=== PATIENT | female | born 1965 | race Caucasian/White ===

== ENCOUNTER 2021-03-31 15:43 | Outpatient (REF) | payer MEDICAID, SELFPAY ==
--- NOTE | ~2021-03-31 | MM_ITS ---
EXAMINATION: MM SCREENING DIGITAL BREAST TOMOSYNTHESIS, BILATERAL CLINICAL INFORMATION: Screening. Asymptomatic. The lifetime risk of breast cancer based on the Tyrer-Cuzick Model is 18%. COMPARISON: Mammography: 01/20/2019, 12/11/2017, 11/01/2016 TECHNIQUE: Digital breast tomosynthesis is performed in both the craniocaudal and mediolateral oblique views along with computer-aided detection (CAD). Synthesized 2D images are generated from the tomosynthesis. Additional views are obtained: Bilateral CC, bilateral MLO. FINDINGS: The breasts are almost entirely fatty (ACR BI-RADS breast composition Category a). There are no significant masses, abnormal calcifications, or other abnormalities. Background stromal markings are stable. The axillary and skin contours are unremarkable. No significant changes. MM/MM tomosynthesis screening BI IMPRESSION: No mammographic evidence of malignancy. ASSESSMENT: BI-RADS 1: Negative RECOMMENDATION: Routine annual mammography screening. This patient's information was entered into a reminder system with a target due date for their next mammogram.
== END 2021-03-31 15:44 | disposition home or self-care (01) ==
LOC: HO.MAMMO 15:43
PROVIDERS: Visit Provider Family Medicine
DX: Z12.31 Encounter for screening mammogram for malignant neoplasm of breast (principal)
CPT/HCPCS: 77063; 77067

== ENCOUNTER → 2021-05-05 10:39 | Outpatient (BNVA) | payer MEDICAID, SELFPAY | PROVIDERS: PCP Family Medicine; Referring Provider Family Medicine; Visit Provider Surgery | DX: E66.01 Morbid (severe) obesity due to excess calories (principal); Z68.44 Body mass index [BMI] 60.0-69.9, adult; Z86.010 Personal history of colon polyps | CPT/HCPCS: 99202 ==

== ENCOUNTER 2021-06-03 06:37 | Day surgery (SDC) | payer MEDICAID, SELFPAY ==
[2021-05-27 14:37] VITALS: BMI 59.1
--- NOTE | 2021-06-02 08:28 | P.CONAN_ITS ---
Documented by User: Janis Alvaradoney 06/06/21 08:10 HPI - Anesthesia Eval Consult details Narrative: 55yo F for Colonoscopy, Poss Polypectomy PMFSH Active Problems Active Problems: All Active Problems (Updated 05/05/21 @ 11:12 by Cisco Kaur MD) Hypertension (Acute) Diabetes mellitus (Acute) Morbid obesity with BMI of 60.0-69.9, adult (Acute) Morbid obesity with BMI of 50.0-59.9, adult (Acute) History of adenomatous polyp of colon (Acute) Past Medical History Medical History Diabetes mellitus History of adenomatous polyp of colon Hypertension Morbid obesity with BMI of 50.0-59.9, adult Morbid obesity with BMI of 60.0-69.9, adult Social History Social History Patient Tobacco Use Status: Never used Tobacco Meds Allergies Allergy/AdvReac Type Severity Reaction Status Date / Time No Known Allergies Allergy Verified 05/05/21 10:55 [No Known Allergies*] Home Medications Medication Instructions Recorded Confirmed Last Taken Type alcohol swabs (Alcohol Prep Pads) pad TOPICAL 05/05/21 Unknown History aspirin 81 mg tablet,delayed 81 mg PO DAILY 05/05/21 Unknown History release baclofen 10 mg tablet 10 mg PO DAILY 05/05/21 Unknown History blood sugar diagnostic (FreeStyle #10 ea 05/05/21 Unknown History Lite Strips) cetirizine 10 mg capsule (Zyrtec) 10 mg PO DAILY PRN 05/05/21 Unknown History cholecalciferol (vitamin D3) 50 50 mcg PO DAILY 05/05/21 Unknown History mcg (2,000 unit) capsule dextrose 4 gram-D3 400 unit tab PO 05/05/21 Unknown History chewable tablet fluticasone propionate 50 1 spray INTRANASAL DAILY 05/05/21 Unknown History mcg/actuation nasal spray,suspension (Flonase Allergy Relief) hydrochlorothiazide 25 mg tablet 25 mg PO DAILY 05/05/21 Unknown History hydroxyzine pamoate 50 mg capsule 50 mg PO BEDTIME 05/05/21 Unknown History (Vistaril) lancets 28 gauge (FreeStyle #100 ea 05/05/21 Unknown History Lancets) lidocaine 5 % topical patch 1 patch TOPICAL DAILY 05/05/21 Unknown History lisinopril 40 mg tablet 40 mg PO DAILY 05/05/21 Unknown History metformin 850 mg tablet 850 mg PO BID 05/05/21 Unknown History multivitamin with iron 1 tab PO DAILY 05/05/21 Unknown History naloxone 4 mg/actuation nasal 4 mg INTRANASAL Q2M PRN 05/05/21 Unknown History spray (Narcan) naproxen 500 mg tablet 500 mg PO BID 05/05/21 Unknown History omega-3 fatty acids 1,000 mg 1,000 mg PO DAILY 05/05/21 Unknown History capsule (Fish Oil Concentrate) oxycodone-acetaminophen 2.5 mg-325 1 tab PO Q6H PRN 05/05/21 Unknown History mg tablet (Percocet) pioglitazone 15 mg tablet (Actos) 15 mg PO DAILY 05/05/21 Unknown History pravastatin 80 mg tablet 80 mg PO BEDTIME 05/05/21 Unknown History propranolol 120 mg capsule,24 120 mg PO DAILY 05/05/21 Unknown History hr,extended release (Inderal LA) quetiapine 100 mg tablet (Seroquel) 100 mg PO BEDTIME 05/05/21 Unknown History sertraline 100 mg tablet (Zoloft) 100 mg PO DAILY 05/05/21 Unknown History sumatriptan succinate 25 mg tablet 25 mg PO Q2-4H PRN 05/05/21 Unknown History (Imitrex) topiramate 25 mg tablet (Topamax) 25 mg PO DAILY 05/05/21 Unknown History varicella-zoster glycoE [id number] IM 05/05/21 Unknown History adj(PF) 50 mcg/0.5 mL IM susp, kit (Shingrix (PF)) Exam Exam Date and Time: June 02, 2021 0828 Height,Weight and Vital Signs: Height 5 ft 6 in Weight 166.015 kg Assessment and Plan Assessment Anesthesia Assessment: Chart Reviewed Documented by User: Kamille Brock MD 06/03/21 07:54 [facility] Past Medical History Medical History Diabetes mellitus History of adenomatous polyp of colon Hypertension Morbid obesity with BMI of 50.0-59.9, adult Morbid obesity with BMI of 60.0-69.9, adult Social History Social History Patient Tobacco Use Status: Never used Tobacco Meds Allergies Allergy/AdvReac Type Severity Reaction Status Date / Time No Known Allergies Allergy Verified 05/05/21 10:55 [No Known Allergies*] Home Medications Medication Instructions Recorded Confirmed Last Taken Type alcohol swabs (Alcohol Prep Pads) pad TOPICAL 05/05/21 Unknown History aspirin 81 mg tablet,delayed 81 mg PO DAILY 05/05/21 Unknown History release baclofen 10 mg tablet 10 mg PO DAILY 05/05/21 Unknown History blood sugar diagnostic (FreeStyle #10 ea 05/05/21 Unknown History Lite Strips) cetirizine 10 mg capsule (Zyrtec) 10 mg PO DAILY PRN 05/05/21 Unknown History cholecalciferol (vitamin D3) 50 50 mcg PO DAILY 05/05/21 Unknown History mcg (2,000 unit) capsule dextrose 4 gram-D3 400 unit tab PO 05/05/21 Unknown History chewable tablet fluticasone propionate 50 1 spray INTRANASAL DAILY 05/05/21 Unknown History mcg/actuation nasal spray,suspension (Flonase Allergy Relief) hydrochlorothiazide 25 mg tablet 25 mg PO DAILY 05/05/21 Unknown History hydroxyzine pamoate 50 mg capsule 50 mg PO BEDTIME 05/05/21 Unknown History (Vistaril) lancets 28 gauge (FreeStyle #100 ea 05/05/21 Unknown History Lancets) lidocaine 5 % topical patch 1 patch TOPICAL DAILY 05/05/21 Unknown History lisinopril 40 mg tablet 40 mg PO DAILY 05/05/21 Unknown History metformin 850 mg tablet 850 mg PO BID 05/05/21 Unknown History multivitamin with iron 1 tab PO DAILY 05/05/21 Unknown History naloxone 4 mg/actuation nasal 4 mg INTRANASAL Q2M PRN 05/05/21 Unknown History spray (Narcan) naproxen 500 mg tablet 500 mg PO BID 05/05/21 Unknown History omega-3 fatty acids 1,000 mg 1,000 mg PO DAILY 05/05/21 Unknown History capsule (Fish Oil Concentrate) oxycodone-acetaminophen 2.5 mg-325 1 tab PO Q6H PRN 05/05/21 Unknown History mg tablet (Percocet) pioglitazone 15 mg tablet (Actos) 15 mg PO DAILY 05/05/21 Unknown History pravastatin 80 mg tablet 80 mg PO BEDTIME 05/05/21 Unknown History propranolol 120 mg capsule,24 120 mg PO DAILY 05/05/21 Unknown History hr,extended release (Inderal LA) quetiapine 100 mg tablet (Seroquel) 100 mg PO BEDTIME 05/05/21 Unknown History sertraline 100 mg tablet (Zoloft) 100 mg PO DAILY 05/05/21 Unknown History sumatriptan succinate 25 mg tablet 25 mg PO Q2-4H PRN 05/05/21 Unknown History (Imitrex) topiramate 25 mg tablet (Topamax) 25 mg PO DAILY 05/05/21 Unknown History varicella-zoster glycoE [id number] IM 05/05/21 Unknown History adj(PF) 50 mcg/0.5 mL IM susp, kit (Shingrix (PF))
[2021-06-03 06:52] LABS: Glucose, Whole Blood 180 mg/dL (60-115)
[2021-06-03 07:02] VITALS: BP 123/69; PULSE 94; RESP 18; TEMP 36.7; O2SAT 97
[2021-06-03] MEDS: Lactated Ringers 1,000 ML 100 ML IVCONT (07:21)
--- NOTE | 2021-06-03 07:24 | MHC.SHP ---
Pre-Procedural Eval Section A Date of Service: 06/03/21 Section B Chief Complaint: hx of colonic polyps Allergies: Allergies Allergy/AdvReac Type Severity Reaction Status Date / Time No Known Allergies Allergy Verified 05/05/21 10:55 [No Known Allergies*] Plan I have reviewed the history and physical and performed a pertinent physical examination on my patient. No changes have occurred unless specified.
--- NOTE | 2021-06-03 08:27 | HO.ANESPROP2 ---
[facility] Active Problems Active Problems: All Active Problems (Updated 06/02/21 @ 08:30 by Janis Moon) Hypertension (Acute) Diabetes mellitus (Acute) Morbid obesity with BMI of 60.0-69.9, adult (Acute) Morbid obesity with BMI of 50.0-59.9, adult (Acute) History of adenomatous polyp of colon (Acute) Past Medical History Medical History Diabetes mellitus History of adenomatous polyp of colon Hypertension Morbid obesity with BMI of 50.0-59.9, adult Morbid obesity with BMI of 60.0-69.9, adult Surgical History History of Problems with Anesthesia: No Social History Social History Patient Tobacco Use Status: Never used Tobacco Use of substances other than those prescribed or required for medical reasons: No Have you been hit, kicked, punched, or otherwise hurt by someone within the past year? If so, by whom?: No Are you DNR?: No Advance Directives: No Advance Directives Information Provided: Yes Meds Allergies Allergy/AdvReac Type Severity Reaction Status Date / Time No Known Allergies Allergy Verified 05/05/21 10:55 [No Known Allergies*] Active Medications: Current Medications Generic Name Dose Route Start Last Admin Trade Name Tamra PRN Reason Stop Dose Admin Lactated Ringer's 1,000 mls @ 100 mls/hr 06/03/21 06:00 06/03/21 07:21 Lr IVCONT 100 mls/hr .Q10H JEAN PIERRE Administration Home Medications Medication Instructions Recorded Confirmed Last Taken Type alcohol swabs (Alcohol Prep Pads) pad TOPICAL 05/05/21 Unknown History aspirin 81 mg tablet,delayed 81 mg PO DAILY 05/05/21 Unknown History release baclofen 10 mg tablet 10 mg PO DAILY 05/05/21 Unknown History blood sugar diagnostic (FreeStyle #10 ea 05/05/21 Unknown History Lite Strips) cetirizine 10 mg capsule (Zyrtec) 10 mg PO DAILY PRN 05/05/21 Unknown History cholecalciferol (vitamin D3) 50 50 mcg PO DAILY 05/05/21 Unknown History mcg (2,000 unit) capsule dextrose 4 gram-D3 400 unit tab PO 05/05/21 Unknown History chewable tablet fluticasone propionate 50 1 spray INTRANASAL DAILY 05/05/21 Unknown History mcg/actuation nasal spray,suspension (Flonase Allergy Relief) hydrochlorothiazide 25 mg tablet 25 mg PO DAILY 05/05/21 Unknown History hydroxyzine pamoate 50 mg capsule 50 mg PO BEDTIME 05/05/21 Unknown History (Vistaril) lancets 28 gauge (FreeStyle #100 ea 05/05/21 Unknown History Lancets) lidocaine 5 % topical patch 1 patch TOPICAL DAILY 05/05/21 Unknown History lisinopril 40 mg tablet 40 mg PO DAILY 05/05/21 Unknown History metformin 850 mg tablet 850 mg PO BID 05/05/21 Unknown History multivitamin with iron 1 tab PO DAILY 05/05/21 Unknown History naloxone 4 mg/actuation nasal 4 mg INTRANASAL Q2M PRN 05/05/21 Unknown History spray (Narcan) naproxen 500 mg tablet 500 mg PO BID 05/05/21 Unknown History omega-3 fatty acids 1,000 mg 1,000 mg PO DAILY 05/05/21 Unknown History capsule (Fish Oil Concentrate) oxycodone-acetaminophen 2.5 mg-325 1 tab PO Q6H PRN 05/05/21 Unknown History mg tablet (Percocet) pioglitazone 15 mg tablet (Actos) 15 mg PO DAILY 05/05/21 Unknown History pravastatin 80 mg tablet 80 mg PO BEDTIME 05/05/21 Unknown History propranolol 120 mg capsule,24 120 mg PO DAILY 05/05/21 Unknown History hr,extended release (Inderal LA) quetiapine 100 mg tablet (Seroquel) 100 mg PO BEDTIME 05/05/21 Unknown History sertraline 100 mg tablet (Zoloft) 100 mg PO DAILY 05/05/21 Unknown History sumatriptan succinate 25 mg tablet 25 mg PO Q2-4H PRN 05/05/21 Unknown History (Imitrex) topiramate 25 mg tablet (Topamax) 25 mg PO DAILY 05/05/21 Unknown History varicella-zoster glycoE [id number] IM 05/05/21 Unknown History adj(PF) 50 mcg/0.5 mL IM susp, kit (Shingrix (PF)) Exam Exam Date and Time: June 03, [id number] Height,Weight and Vital Signs: Height 5 ft 6 in Weight 166.015 kg Last Vital Signs Temp 98.1 F 06/03/21 07:02 Pulse 94 06/03/21 07:02 Resp 18 06/03/21 07:02 BP 123/69 06/03/21 07:02 Pulse Ox 97 06/03/21 07:02 Pertinent Lab Results Pertinent Lab Results: Laboratory Tests 06/03/21 06:48 POC Glucose 180 H Airway Mallampati Class: III TM Dist: >3cm Neck ROM: Limited Heart: RRR Lungs: CTA Assessment and Plan Assessment Anesthesia Assessment: Anesthesia Plan Discussed and Chart Reviewed Final Anesthetic Review History of Problems with Anesthesia: No NPO: Yes ASA Class: III Final Preanesthetic Review: Meds/Allgs Chart Reviewed, Consent Obtained/Reviewed and Anes Risks/Benef Reviewed Patient Risk: Intermediate Procedure Risk: Low Anesthetic Plan Anesthetic Plan: MAC: Disposition: Standard PACU
--- NOTE | 2021-06-03 09:16 | P.OP_ITS ---
Operative Note Operative Note Date of Service: 06/03/21 Narrative: Preop diagnosis: History of colon adenoma Postop diagnosis: Diverticulosis of the sigmoid, mild, otherwise, possibly findings Procedure: Colonoscopy Surgeon: Cisco Kaur MD The patient is a 55 year female who had undergone a colonoscopy in [address] Burger and was noted to have adenomatous polyps. She was instructed to have a follow-up colonoscopy in 5 years. She understood the technique of the proced ure. She was aware of the risks, benefits, and alternatives. She was brought to the operating room and placed in left lateral decubitus position under monitored anesthesia care. A full digital rectal was done. There were no palpable anal lesions. The tip of the Olympus colonoscope wase of her gently introduced through the anal orifice advanced with insufflation all the way to the cecum. The cecum was intubated. The cecum was identified by visualization of the ileocecal valve as well as the appendiceal orifice. The cecal mucosa was unremarkable. The scope was gradually withdrawn with careful examination of the entire colonic mucosa being done with scope withdrawal. The patient had good bowel prep so it was unlikely that any lesion may have been missed. There was note of mild diverticulosis of the sigmoid. The rectum was reached. There were no lesions seen. The anal canal and anal shelf where unremarkable and the scope was then withdrawn completely The patient tolerated the procedure well. There were no complications noted. Her her next colonoscopy may be the next 10 years.
[2021-06-03 09:19] VITALS: BP 112/52; PULSE 78; RESP 18; TEMP 36.9; O2SAT 99
--- NOTE | 2021-06-03 09:19 | PM.OP ---
Brief Operative Note Date of Service: 06/03/21 Pre-op diagnosis: History of polyps Post-op diagnosis: other (Mild diverticulosis) Procedure: Colonoscopy Surgeon: Cisco Kaur MD Anesthesia: MAC Was an Echocardiography Tech used for this Procedure?: No Estimated blood loss (mL): 0 Pathology: none sent Condition: stable Disposition: PACU
[2021-06-03 09:34] VITALS: BP 122/44; PULSE 77; RESP 18; TEMP 37; O2SAT 98
== END 2021-06-03 10:11 | disposition home or self-care (01) ==
PROVIDERS: PCP Family Medicine; Visit Provider Surgery
PROC: 0DBE8ZZ Excision of Large Intestine, Via Natural or Artificial Opening Endoscopic (ICD-10-PCS; CPT 45378; principal; 2021-06-03 08:40)
DX: Z12.11 Encounter for screening for malignant neoplasm of colon (principal); Z86.010 Personal history of colon polyps; K57.30 Diverticulosis of large intestine without perforation or abscess without bleeding; I10 Essential (primary) hypertension; E11.9 Type 2 diabetes mellitus without complications; E66.01 Morbid (severe) obesity due to excess calories; Z79.84 Long term (current) use of oral hypoglycemic drugs; Z79.82 Long term (current) use of aspirin; Z79.899 Other long term (current) drug therapy
CPT/HCPCS: 45378; 82947

== ENCOUNTER → 2021-06-15 09:18 | Outpatient (BNVA) | payer MEDICAID, SELFPAY | PROVIDERS: PCP Family Medicine; Referring Provider Family Medicine; Visit Provider Surgery ==

== ENCOUNTER 2022-04-03 14:37 | Outpatient (REF) | payer MEDICAID, SELFPAY ==
--- NOTE | ~2022-04-03 | MM_ITS ---
EXAMINATION: MM SCREENING DIGITAL BREAST TOMOSYNTHESIS, BILATERAL CLINICAL INFORMATION: Screening. Asymptomatic. The lifetime risk of breast cancer based on the Tyrer-Cuzick Model is 15%. COMPARISON: Mammography: March 31, 2021 and studies dating back to September 03, 2014 TECHNIQUE: Digital breast tomosynthesis is performed in both the craniocaudal and mediolateral oblique views along with computer-aided detection (CAD). Synthesized 2D images are generated from the tomosynthesis. FINDINGS: The breasts are almost entirely fatty (ACR BI-RADS breast composition Category a). There are no significant masses, abnormal calcifications, or other abnormalities. MM/MM tomosynthesis screening BI IMPRESSION: There are no significant changes from prior study. ASSESSMENT: BI-RADS 1: Negative RECOMMENDATION: Routine annual mammography screening. This patient's information was entered into a reminder system with a target due date for their next mammogram.
== END 2022-04-03 14:38 | disposition home or self-care (01) ==
LOC: HO.MAMMO 14:37
PROVIDERS: PCP Family Medicine; Visit Provider Family Medicine
DX: Z12.31 Encounter for screening mammogram for malignant neoplasm of breast (principal)
CPT/HCPCS: 77063; 77067

== ENCOUNTER 2023-04-26 10:21 | Outpatient (REF) | payer MEDICAID, SELFPAY ==
--- NOTE | ~2023-04-26 | MM_ITS ---
EXAMINATION: MM SCREENING DIGITAL BREAST TOMOSYNTHESIS, BILATERAL CLINICAL INFORMATION: Screening. Asymptomatic. The lifetime risk of breast cancer based on the Tyrer-Cuzick Model is 14.6.%. COMPARISON: Mammography: This study is compared with the prior mammograms dating back to 2018. TECHNIQUE: Digital breast tomosynthesis is performed in both the craniocaudal and mediolateral oblique views along with computer-aided detection (CAD). Synthesized 2D images are generated from the tomosynthesis. FINDINGS: The breasts are almost entirely fatty (ACR BI-RADS breast composition Category a). There are no significant masses, abnormal calcifications, or other abnormalities. MM/MM tomosynthesis screening BI IMPRESSION: No mammographic evidence of malignancy. ASSESSMENT: BI-RADS BI-RADS 1 - Negative RECOMMENDATION: Routine annual mammography screening. 1 year F/U This patient's information was entered into a reminder system with a target due date for their next mammogram.
== END 2023-04-26 10:22 | disposition home or self-care (01) ==
LOC: HO.MAMMO 10:21
PROVIDERS: PCP Family Medicine; Visit Provider Family Medicine
DX: Z12.31 Encounter for screening mammogram for malignant neoplasm of breast (principal)
CPT/HCPCS: 77063; 77067

== ENCOUNTER → 2023-04-26 10:45 | Outpatient (BNV) | payer MEDICAID, SELFPAY | PROVIDERS: PCP Family Medicine; Visit Provider Radiology Diagnostic Radiology | DX: Z12.31 Encounter for screening mammogram for malignant neoplasm of breast (principal) | CPT/HCPCS: 77063; 77067 ==

== ENCOUNTER 2023-05-09 11:33 | Outpatient (REF) | payer MEDICAID, SELFPAY ==
[2023-05-09 13:23] LABS: MANUAL DIFF FLAG NO
[2023-05-09 13:57] LABS: Basophils Percent Auto 0.6 % (0-2); Eosinophils Absolute Auto 0.1 X10*3/uL (0.0-0.4); Eosinophils Percent Auto 2.6 % (0-4); Hematocrit 38.5 % (37.0-47.0); Hemoglobin 12.2 g/dl (12.0-16.0); Imm Gran Abs Auto 0.01 X10*3/uL (0.00-0.03); Imm Gran Pct Auto 0.2 % (0.0-0.4); Lymphocytes Absolute Auto 1.3 X10*3/uL (1.2-4.9); Mean Corpuscular HGB Conc 31.7 g/dl (31.0-35.0); Mean Corpuscular Volume 91.7 fL (80.0-98.0); Mean Platelet Volume 11.7 fL (9.4-12.3); Monocytes Absolute Auto 0.5 X10*3/uL (0.1-1.2); Monocytes Percent Auto 10.1 % (2-11); Neutrophils Absolute Auto 3.4 x10*3/uL (2.0-8.3); Neutrophils Percent Auto 62.5 % (45-73); Platelet Count 177 X10*3/uL (160-400); Red Cell Distribution Width 13.2 % (11.0-16.0); White Blood Count 5.4 X10*3/uL (4.8-10.8)
[2023-05-09 14:03] LABS: Estimated Average Glucose 114 mg/dL; Hemoglobin A1c % 5.6 %
[2023-05-09 14:32] LABS: HBsAGNum1 0.32 S/CO (0.00-0.99); HIV AB/AG Nonreactive (Nonreactive); HIV Num 1 0.06 S/CO (0.00-0.99); Hepatitis B Surface Antigen Negative (Negative); ~Hepatitis B Surface Antibody NONREACTIVE (Nonreactive)
[2023-05-09 14:34] LABS: ~HepC Num1 0.08 S/CO (0.00-0.79); ~Hepatitis C Antibody Nonreactive (Nonreactive)
[2023-05-09 14:40] LABS: Anion Gap 14 (12-20); Blood Urea Nitrogen 21 mg/dL (9-16); Calcium 10.7 mg/dL (8.4-10.2); Carbon Dioxide 26 mmol/L (22-29); Chloride 106 mmol/L (96-108); Cholesterol 131 mg/dL; Estimated Glomerular Filt Rate 43; Glucose Random 118 mg/dL (60-115); HDL Cholesterol 58 mg/dL; LDL Cholesterol Calculated 59 mg/dl; Potassium 4.9 mmol/L (3.3-5.1); Sodium 141 mmol/L (135-145); Triglycerides 73 mg/dL
[2023-05-09 14:48] LABS: Syphilis Screen Nonreactive (Nonreactive)
[2023-05-09 14:49] LABS: Free T4 (Free Thyroxine) 1.25 ng/dL (0.71-1.85); Thyroid Stimulating Hormone 1.08 uIU/mL (0.32-4.0); Vitamin D 25-OH Total 47.1 ng/mL (>30)
[2023-05-09 15:36] LABS: CT PCR NOT DETECTED (Not Detect.); NG PCR NOT DETECTED (Not Detect.)
== END 2023-05-09 11:34 | disposition home or self-care (01) ==
LOC: HO.HHCL 11:33
PROVIDERS: Visit Provider Family Medicine
DX: Z11.4 Encounter for screening for human immunodeficiency virus [HIV] (principal); E11.42 Type 2 diabetes mellitus with diabetic polyneuropathy
CPT/HCPCS: 0353U; 80048; 80061; 82043; 82306; 83036; 84439; 84443; 85025; 86706; 86780; 86803; 87340; 87389

== ENCOUNTER 2023-05-28 11:14 | Outpatient (REF) | payer MEDICAID, SELFPAY ==
[2023-05-28 14:59] LABS: Alanine Aminotransferase 13 U/L (0-31); Albumin Level 3.9 g/dL (3.5-5.0); Alkaline Phosphatase 93 U/L (39-117); Amylase 48 U/L (28-100); Anion Gap 17 (12-20); Aspartate Amino Transferase 15 U/L (5-31); Bilirubin Direct 0.5 mg/dL (0.0-0.5); Bilirubin Total 1.1 mg/dL (0.0-1.0); Blood Urea Nitrogen 17 mg/dL (9-16); Calcium 10.4 mg/dL (8.4-10.2); Carbon Dioxide 23 mmol/L (22-29); Chloride 105 mmol/L (96-108); Estimated Glomerular Filt Rate 50; Glucose Random 105 mg/dL (60-115); Lipase 10 U/L (8-78); Potassium 4.2 mmol/L (3.3-5.1); Sodium 141 mmol/L (135-145); Total Protein 7.3 g/dL (6.5-8.0)
[2023-05-29 19:04] LABS: Calcium (PTHI) 9.6 mg/dL (8.6-10.4); PTHI 62 pg/mL (16-77)
== END 2023-05-28 11:15 | disposition home or self-care (01) ==
LOC: HO.HHCL 11:14
PROVIDERS: Visit Provider Family Medicine
DX: R79.89 Other specified abnormal findings of blood chemistry (principal); R10.11 Right upper quadrant pain; E83.52 Hypercalcemia
CPT/HCPCS: 36415; 80048; 80076; 82150; 83690; 83970

== ENCOUNTER 2024-03-31 09:43 | Outpatient (REF) | payer MEDICAID, SELFPAY ==
[2024-03-31 12:14] LABS: Alanine Aminotransferase 13 U/L (0-31); Alkaline Phosphatase 99 U/L (39-117); Anion Gap 13 (12-20); Aspartate Amino Transferase 13 U/L (5-31); Bilirubin Direct 0.3 mg/dL (0.0-0.5); Bilirubin Total 0.9 mg/dL (0.0-1.0); Blood Urea Nitrogen 29 mg/dL (9-16); Calcium 10.1 mg/dL (8.4-10.2); Carbon Dioxide 28 mmol/L (22-29); Chloride 106 mmol/L (96-108); Cholesterol 125 mg/dL (<200); Estimated Glomerular Filt Rate 35; Glucose Random 114 mg/dL (60-115); HDL Cholesterol 51 mg/dL (>40); LDL Cholesterol Calculated 58 mg/dL (<100); Potassium 4.6 mmol/L (3.3-5.1); Sodium 142 mmol/L (135-145); Total Protein 7.1 g/dL (6.5-8.0); Triglycerides 82 mg/dL (<150)
[2024-03-31 12:19] LABS: Hematocrit 35.5 % (37.0-47.0); Hemoglobin 11.6 g/dl (12.0-16.0); Mean Corpuscular HGB Conc 32.7 g/dl (31.0-35.0); Mean Corpuscular Hemoglobin 29.4 pg (27.0-33.0); Mean Corpuscular Volume 89.9 fL (80.0-98.0); Mean Platelet Volume 11.3 fL (9.4-12.3); Platelet Count 231 X10*3/uL (160-400); Red Blood Count 3.95 X10*6/uL (4.20-5.50); White Blood Count 6.9 X10*3/uL (4.8-10.8)
[2024-03-31 12:19] LABS: Creatinine Urine 210.45 mg/dL; Microalbum/Creatinine Ratio Ur 5.2 ug/mg cr (<30)
[2024-03-31 12:22] LABS: Estimated Average Glucose 131 mg/dL; Hemoglobin A1c % 6.2 % (<6.0)
[2024-03-31 12:36] LABS: Free T4 (Free Thyroxine) 1.05 ng/dL (0.71-1.85); Thyroid Stimulating Hormone 1.76 uIU/mL (0.32-4.0); Vitamin D 25-OH Total 34.9 ng/mL (>30)
== END 2024-03-31 09:44 | disposition home or self-care (01) ==
LOC: HO.HHCL 09:43
PROVIDERS: Visit Provider Family Medicine
DX: Z00.00 Encounter for general adult medical examination without abnormal findings (principal); G89.29 Other chronic pain; M54.50 Low back pain, unspecified; F33.9 Major depressive disorder, recurrent, unspecified; E78.49 Other hyperlipidemia; I10 Essential (primary) hypertension; E11.42 Type 2 diabetes mellitus with diabetic polyneuropathy
CPT/HCPCS: 36415; 80048; 80061; 80076; 82043; 82306; 82570; 83036; 84439; 84443; 85027

== ENCOUNTER 2024-04-10 09:38 | Outpatient (REF) | payer MEDICAID, SELFPAY ==
[2024-04-10 12:14] LABS: Anion Gap 10 (12-20); Blood Urea Nitrogen 25 mg/dL (9-16); Calcium 9.9 mg/dL (8.4-10.2); Carbon Dioxide 30 mmol/L (22-29); Chloride 105 mmol/L (96-108); Estimated Glomerular Filt Rate 40; Glucose Random 118 mg/dL (60-115); Potassium 4.7 mmol/L (3.3-5.1); Sodium 140 mmol/L (135-145)
== END 2024-04-10 09:39 | disposition home or self-care (01) ==
LOC: HO.HHCL 09:38
PROVIDERS: Visit Provider Family Medicine
DX: E11.42 Type 2 diabetes mellitus with diabetic polyneuropathy (principal)
CPT/HCPCS: 36415; 80048

== ENCOUNTER 2024-05-08 09:57 | Outpatient (REF) | payer MEDICAID, SELFPAY | END 2024-05-08 09:58 | disposition home or self-care (01) | LOC: HO.MAMMO 09:57 | PROVIDERS: Visit Provider Family Medicine | DX: Z12.31 Encounter for screening mammogram for malignant neoplasm of breast (principal) | CPT/HCPCS: 77063; 77067 ==

== ENCOUNTER → 2024-05-08 10:30 | Outpatient (BNV) | payer MEDICAID, SELFPAY | PROVIDERS: Visit Provider Radiology Diagnostic Radiology | DX: Z12.31 Encounter for screening mammogram for malignant neoplasm of breast (principal) | CPT/HCPCS: 77063; 77067 ==

== ENCOUNTER 2024-05-23 16:02 | Outpatient (REF) | payer MEDICAID, SELFPAY ==
[2024-05-23 18:07] LABS: CT PCR NOT DETECTED (Not Detect.); NG PCR NOT DETECTED (Not Detect.)
[2024-05-27 12:33] LABS: HPV mRNA E6/E7 Not Detected (Not Detected)
== END 2024-05-23 16:03 | disposition home or self-care (01) ==
LOC: HO.HHCLNP 16:02
PROVIDERS: Visit Provider Family Medicine
DX: Z01.419 Encounter for gynecological examination (general) (routine) without abnormal findings (principal)
CPT/HCPCS: 36415; 87491; 87591; 87624; 88175

== ENCOUNTER 2024-07-22 09:09 | Outpatient (REF) | payer MEDICAID, SELFPAY ==
--- NOTE | 2024-07-22 09:14 | EMG_ITS ---
FINDINGS: Right median and ulnar motor and sensory studies were performed. Right radial, sensory study was performed and paraspinal muscles were tested with a needle. IMPRESSION: 1. Mild right median neuropathy across carpal tunnel. 2. 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 MD CYNDEE Puckett/OSMAR / [id number]
== END 2024-07-22 09:10 | disposition home or self-care (01) ==
LOC: HO.NEURO 09:09
PROVIDERS: PCP Family Medicine; Visit Provider Family Medicine
DX: R20.2 Paresthesia of skin (principal); M79.641 Pain in right hand
CPT/HCPCS: 95886; 95909

== ENCOUNTER 2024-07-30 14:33 | Outpatient (AMB) | payer MEDICAID, SELFPAY ==
[2024-07-30 14:53] VITALS: BP 126/61; PULSE 63; O2SAT 97; BMI 55.5
--- NOTE | 2024-07-30 14:53 | HO.NEPHOV ---
Vital Signs 07/30/24 14:53 Height 5 ft 6 in Weight 344 lb BMI 55.5 BP 126/61 Blood Pressure Location Rt brachial Position Sitting Pulse 63 Pulse Source Pulse Oximeter Pulse Oximetry (%) 97 Oxygen Delivery Method Room Air Intake Visit Reasons: CKD STG3A/ Conf Field Traffic Investigator Required: Yes Field Traffic Investigator Services: Field Traffic Investigator Present Field Traffic Investigator Name: Darryn Sinha [id number] Accompanied by: Self / Same As Patient Allergies No Known Allergies [No Known Allergies*] Allergy (Verified 07/30/24 14:55) Medication List - Last Reconciled 07/30/24 by Stephan Combs MD alcohol swabs (Alcohol Prep Pads) pad topical aspirin 81 mg PO DAILY baclofen 10 mg PO DAILY blood sugar diagnostic (FreeStyle Lite Strips) As directed cetirizine (Zyrtec) 10 mg PO DAILY PRN cholecalciferol (vitamin D3) 50 mcg PO DAILY dextrose-vitamin D3 4-400 gram-unit tabs PO dulaglutide (Trulicity) mg subcut QWEEK fluticasone propionate 50 mcg/actuation (Flonase Allergy Relief) 1 spray intranasal DAILY gabapentin 100 mg PO TID hydrochlorothiazide 25 mg PO DAILY hydroxyzine pamoate (Vistaril) 50 mg PO BEDTIME lancets (FreeStyle Lancets) As directed lidocaine 5% 1 patch topical DAILY lisinopril 40 mg PO DAILY metformin 850 mg PO DAILY multivitamin with iron 1 tab PO DAILY naloxone 4 mg/actuation (Narcan) 4 mg intranasal Q2M PRN omega-3 fatty acids (Fish Oil Concentrate) 1,000 mg PO DAILY oxycodone-acetaminophen 2.5-325 mg (Percocet) 1 tab PO Q6H PRN pravastatin 80 mg PO BEDTIME propranolol ER (Inderal LA) 120 mg PO DAILY quetiapine (Seroquel) 150 mg PO BEDTIME sertraline (Zoloft) 100 mg PO DAILY sumatriptan succinate (Imitrex) 25 mg PO Q2-4H PRN HPI Comments Details: Micheline is a pleasant 59-year-old woman with a history of hypertension obesity and diabetes mellitus referred for evaluation of CKD. Serum creatinine was 1.5. Overall blood pressure has been well controlled. Blood sugar has been under control as well. [facility] Medical History (Updated 07/30/24 @ 15:09 by Stephan Combs MD) Diverticulosis Hypertension Diabetes mellitus Morbid obesity with BMI of 60.0-69.9, adult Morbid obesity with BMI of 50.0-59.9, adult History of adenomatous polyp of colon Surgical History (Updated 07/30/24 @ 14:59 by Alicia Plata MA) History of colonoscopy (~2020) Family History (Updated 07/30/24 @ 15:01 by Alicia Plata MA) Mother Diabetes Social History (Updated 07/30/24 @ 14:59 by Alicia Plata MA) Alcohol intake: never Patient Tobacco Use Status: Never used Tobacco Review of Systems Const Denies fever(s) and Denies weight loss Card Denies chest pain Resp Denies cough and Denies hemoptysis GI Denies abdominal pain, Denies diarrhea and Denies nausea Musc Denies back pain Neuro Denies focal weakness Physical Exam Vital Signs: Last Vital Signs Pulse 63 07/30/24 14:53 BP 126/61 07/30/24 14:53 Pulse Ox 97 07/30/24 14:53 Oxygen Delivery Method Room Air 07/30/24 14:53 BMI result Body Mass Index 55.5 Const General: comfortable; No acute distress Orientation/consciousness: patient oriented x3 Eyes General: appearance normal, both eyes and all related structures Visual Wyatt: normal visual wyatt by confrontation Neck Neck: Yes supple and Yes no JVD Resp Effort & Inspection: normal respiratory effort and respiratory effort not decreased Auscultation: rhonchi Cardio Palpation: no palpable S3 and no palpable S4 Heart sounds: no rubs GI Inspection: Yes normal to inspection Palpation (GI): Soft to palpation Percussion: Yes normal to percussion Auscultation: normal bowel sounds General: Yes no CVA tenderness Back/Spine/Pelvis Back: no CVA tenderness Skin General skin exam: no petechiae and no purpura Neuro General: patient oriented x3 and no focal motor deficits Extrem General: No clubbing and No edema Results Reviewed Nephrology Results: Hgb 10.5 g/dl (12.0-16.0) L 08/05/24 WBC 5.5 X10*3/uL (4.8-10.8) 08/05/24 Plt Count 181 X10*3/uL (160-400) 08/05/24 Sodium 143 mmol/L (135-145) 08/05/24 Potassium 3.8 mmol/L (3.3-5.1) 08/05/24 Chloride 107 mmol/L (96-108) 08/05/24 Carbon Dioxide 28 mmol/L (22-29) 08/05/24 BUN 26 mg/dL (9-16) H 08/05/24 Creatinine 1.38 mg/dL (0.5-1.4) 08/05/24 Calcium 9.5 mg/dL (8.4-10.2) 08/05/24 PTH Intact 62 pg/mL (16-77) 05/28/23 Urine Protein Negative mg/dL (Neg-Trace) 08/05/24 Urine Creatinine 117.95 mg/dL 08/05/24 Assessment & Plan Assessment & Plan (1) Hypertension: Code(s): I10 - Essential (primary) hypertension Category: Medical (2) CKD (chronic kidney disease): Code(s): N18.9 - Chronic kidney disease, unspecified Category: Medical Plan 59-year-old woman with a history of longstanding hypertension diabetes mellitus and obesity with CKD. Serum creatinine was 1.5 mg/dL which has in fact improved to 1.3 mg/dL. She probably has underlying hypertensive diabetic kidney disease. Other possibilities including obstructive uropathy and underlying glomerular disease should be considered and we will rule them out. Goal is to slow the progression of renal disease Continue overt nephrotoxic agents including NSAIDs. Maintain blood pressure less than 130/80 Maintain A1c less than 7%. Agree with maximizing CHERYL inhibitors for renal protection. She will also benefit from SGLT2 inhibitors. Discussed importance of low-salt diet and weight loss. She returned to office once the baseline workup is completed Orders: Orders Complete Blood Count Auto Diff 08/05/24 I10 - Essential (primary) hypertension, N18.9 - Chronic kidney disease, unspecified Creatinine Urine 08/05/24 I10 - Essential (primary) hypertension, N18.9 - Chronic kidney disease, unspecified UA and rflx microscopic 08/05/24 I10 - Essential (primary) hypertension, N18.9 - Chronic kidney disease, unspecified Basic Metabolic Panel 08/05/24 I10 - Essential (primary) hypertension, N18.9 - Chronic kidney disease, unspecified Total Protein Urine Random 08/05/24 I10 - Essential (primary) hypertension, N18.9 - Chronic kidney disease, unspecified Coding Level of Care Code New Pt Level 4 (03894) Diagnoses Hypertension I10 CKD (chronic kidney disease) N18.9
== END 2024-07-30 15:16 | disposition home or self-care (01) ==
LOC: HO.HKAM 14:33
PROVIDERS: PCP Family Medicine; Referring Provider Family Medicine; Visit Provider Internal Medicine Hypertension Specialist
DX: I12.9 Hypertensive chronic kidney disease with stage 1 through stage 4 chronic kidney disease, or unspecified chronic kidney disease (principal); E11.22 Type 2 diabetes mellitus with diabetic chronic kidney disease; N18.9 Chronic kidney disease, unspecified
CPT/HCPCS: 99204

== ENCOUNTER → 2024-07-30 14:33 | Outpatient (BNVA) | payer MEDICAID, SELFPAY | PROVIDERS: PCP Family Medicine; Referring Provider Family Medicine; Visit Provider Internal Medicine Hypertension Specialist | DX: E11.22 Type 2 diabetes mellitus with diabetic chronic kidney disease (principal); I12.9 Hypertensive chronic kidney disease with stage 1 through stage 4 chronic kidney disease, or unspecified chronic kidney disease; N18.31 Chronic kidney disease, stage 3a | CPT/HCPCS: 99202 ==

== ENCOUNTER 2024-08-05 10:50 | Outpatient (REF) | payer MEDICAID, SELFPAY ==
[2024-08-05 11:38] LABS: Appearance Urine Clear; Color Urine Yellow; Glucose Urine UA Negative (Negative); Leukocyte Esterase Urine Moderate (2+) (Negative); Nitrite Urine Negative (Negative); PH 5.5 (5.0-9.0); UMIC TRIGGER UA YES; Urine Blood Negative (Negative); Urine Ketones Negative (Negative); Urine Protein Negative (Neg-Trace)
[2024-08-05 11:39] LABS: MANUAL DIFF FLAG NO
[2024-08-05 11:44] LABS: Bacteria Urine None Seen (None Seen); Hyaline Casts Urine 0-2 /LPF (0-2); RBC Urine 0-2 /HPF (0-2)
[2024-08-05 11:46] LABS: Basophils Percent Auto 0.7 % (0-2); Eosinophils Absolute Auto 0.2 X10*3/uL (0.0-0.4); Eosinophils Percent Auto 3.5 % (0-4); Hematocrit 32.8 % (37.0-47.0); Hemoglobin 10.5 g/dl (12.0-16.0); Imm Gran Abs Auto 0.02 X10*3/uL (0.00-0.03); Imm Gran Pct Auto 0.4 % (0.0-0.4); Lymphocytes Absolute Auto 1.5 X10*3/uL (1.2-4.9); Lymphocytes Percent Auto 27.5 % (20-40); Mean Corpuscular Hemoglobin 28.8 pg (27.0-33.0); Mean Corpuscular Volume 89.9 fL (80.0-98.0); Mean Platelet Volume 11.4 fL (9.4-12.3); Monocytes Absolute Auto 0.5 X10*3/uL (0.1-1.2); Monocytes Percent Auto 8.2 % (2-11); Neutrophils Absolute Auto 3.3 x10*3/uL (2.0-8.3); Neutrophils Percent Auto 59.7 % (45-73); Platelet Count 181 X10*3/uL (160-400); Red Blood Count 3.65 X10*6/uL (4.20-5.50); Red Cell Distribution Width 13.6 % (11.0-16.0); White Blood Count 5.5 X10*3/uL (4.8-10.8)
[2024-08-05 12:13] LABS: Creatinine Urine 117.95 mg/dL; Total Protein Urine Random < 7 mg/dL (<12)
[2024-08-05 12:16] LABS: Anion Gap 12 (12-20); Blood Urea Nitrogen 26 mg/dL (9-16); Calcium 9.5 mg/dL (8.4-10.2); Carbon Dioxide 28 mmol/L (22-29); Chloride 107 mmol/L (96-108); Estimated Glomerular Filt Rate 39; Glucose Random 120 mg/dL (60-115); Potassium 3.8 mmol/L (3.3-5.1); Sodium 143 mmol/L (135-145)
== END 2024-08-05 10:51 | disposition home or self-care (01) ==
LOC: HO.HHCL 10:50
PROVIDERS: Visit Provider Internal Medicine Hypertension Specialist
DX: I12.9 Hypertensive chronic kidney disease with stage 1 through stage 4 chronic kidney disease, or unspecified chronic kidney disease (principal); N18.9 Chronic kidney disease, unspecified
CPT/HCPCS: 36415; 80048; 81001; 82570; 84156; 85025

== ENCOUNTER 2024-09-17 14:47 | Outpatient (AMB) | payer MEDICAID, SELFPAY ==
[2024-09-17 14:48] VITALS: BP 126/70; PULSE 95; O2SAT 75
--- NOTE | 2024-09-17 14:48 | HO.NEPHOV_ITS ---
Vital Signs 09/17/24 14:48 Height 5 ft 6 in BP 126/70 Blood Pressure Location Lt radial Position Sitting Pulse 95 Pulse Source Pulse Oximeter Pulse Oximetry (%) 75 L Oxygen Delivery Method Room Air Intake Visit Reasons: follow up/ LVM Manager Home Healthcare Required: Yes Manager Home Healthcare Name: [id number] alisa Accompanied by: Self / Same As Patient Allergies No Known Allergies [No Known Allergies*] Allergy (Verified 09/17/24 14:50) Medication List - Last Reconciled 09/17/24 by Stephan Combs MD alcohol swabs (Alcohol Prep Pads) pad topical aspirin 81 mg PO DAILY baclofen 10 mg PO DAILY blood sugar diagnostic (FreeStyle Lite Strips) As directed cetirizine (Zyrtec) 10 mg PO DAILY PRN cholecalciferol (vitamin D3) 50 mcg PO DAILY dextrose-vitamin D3 4-400 gram-unit tabs PO dulaglutide (Trulicity) 3 mg subcut QWEEK dulaglutide (Trulicity) mg subcut QWEEK fluticasone propionate 50 mcg/actuation (Flonase Allergy Relief) 1 spray intranasal DAILY gabapentin 100 mg PO TID hydrochlorothiazide 25 mg PO DAILY hydroxyzine pamoate (Vistaril) 50 mg PO BEDTIME lancets (FreeStyle Lancets) As directed lidocaine 5% 1 patch topical DAILY lisinopril 40 mg PO DAILY metformin 850 mg PO DAILY multivitamin with iron 1 tab PO DAILY naloxone 4 mg/actuation (Narcan) 4 mg intranasal Q2M PRN omega-3 fatty acids (Fish Oil Concentrate) 1,000 mg PO DAILY oxycodone-acetaminophen 2.5-325 mg (Percocet) 1 tab PO Q6H PRN oxycodone-acetaminophen 5-325 mg 1 tab PO Q6H PRN pravastatin 80 mg PO BEDTIME propranolol ER (Inderal LA) 120 mg PO DAILY quetiapine 50 mg PO QPM quetiapine (Seroquel) 150 mg PO BEDTIME sertraline (Zoloft) 100 mg PO DAILY sumatriptan succinate (Imitrex) 25 mg PO Q2-4H PRN HPI Comments Details: Micheline is a pleasant 59-year-old woman with a history of hypertension obesity and diabetes mellitus referred for evaluation of CKD. Serum creatinine was 1.5. Overall blood pressure has been well controlled. Blood sugar has been under control as well. [facility] Medical History (Updated 07/30/24 @ 15:09 by Stephan Combs MD) Diverticulosis Hypertension Diabetes mellitus Morbid obesity with BMI of 60.0-69.9, adult Morbid obesity with BMI of 50.0-59.9, adult History of adenomatous polyp of colon Surgical History History of colonoscopy (~2020) Family History Mother Diabetes Social History Alcohol intake: never Patient Tobacco Use Status: Never used Tobacco Physical Exam Vital Signs: Last Vital Signs Pulse 95 09/17/24 14:48 BP 126/70 09/17/24 14:48 Pulse Ox 75 L 09/17/24 14:48 Oxygen Delivery Method Room Air 09/17/24 14:48 Const General: comfortable; No acute distress Orientation/consciousness: patient oriented x3 Eyes General: appearance normal, both eyes and all related structures Visual Wyatt: normal visual wyatt by confrontation Neck Neck: Yes supple and Yes no JVD Resp Effort & Inspection: normal respiratory effort and respiratory effort not decreased Auscultation: rhonchi Cardio Palpation: no palpable S3 and no palpable S4 Heart sounds: no rubs GI Inspection: Yes normal to inspection Palpation (GI): Soft to palpation Percussion: Yes normal to percussion Auscultation: normal bowel sounds General: Yes no CVA tenderness Back/Spine/Pelvis Back: no CVA tenderness Skin General skin exam: no petechiae and no purpura Neuro General: patient oriented x3 and no focal motor deficits Extrem General: No clubbing and No edema Results Reviewed Nephrology Results: Hgb 10.5 g/dl (12.0-16.0) L 08/05/24 WBC 5.5 X10*3/uL (4.8-10.8) 08/05/24 Plt Count 181 X10*3/uL (160-400) 08/05/24 Sodium 143 mmol/L (135-145) 08/05/24 Potassium 3.8 mmol/L (3.3-5.1) 08/05/24 Chloride 107 mmol/L (96-108) 08/05/24 Carbon Dioxide 28 mmol/L (22-29) 08/05/24 BUN 26 mg/dL (9-16) H 08/05/24 Creatinine 1.38 mg/dL (0.5-1.4) 08/05/24 Calcium 9.5 mg/dL (8.4-10.2) 08/05/24 PTH Intact 62 pg/mL (16-77) 05/28/23 Urine Protein Negative mg/dL (Neg-Trace) 08/05/24 Urine Creatinine 117.95 mg/dL 08/05/24 Assessment & Plan Assessment & Plan (1) Hypertension: Code(s): I10 - Essential (primary) hypertension Category: Medical (2) CKD (chronic kidney disease): Code(s): N18.9 - Chronic kidney disease, unspecified Category: Medical Plan 59-year-old woman with a history of longstanding hypertension diabetes mellitus and obesity with CKD. Serum creatinine was 1.5 mg/dL which has in fact improved to 1.3 mg/dL. She probably has underlying hypertensive diabetic kidney disease. Other possibilities including obstructive uropathy and underlying glomerular disease should be considered and we will rule them out. Goal is to slow the progression of renal disease Continue to avoid nephrotoxic agents including NSAIDs. Maintain blood pressure less than 130/80 Maintain A1c less than 7%. Agree with maximizing CHERYL inhibitors for renal protection. She will also benefit from SGLT2 inhibitors. Discussed importance of low-salt diet and weight loss. 24 hours urine for Cr Cl Orders: Orders Creatinine Clearance Urine 24U 2 Months I10 - Essential (primary) hypertension, N18.9 - Chronic kidney disease, unspecified Complete Blood Count no Diff 2 Months I10 - Essential (primary) hypertension, N18.9 - Chronic kidney disease, unspecified Basic Metabolic Panel 2 Months I10 - Essential (primary) hypertension, N18.9 - Chronic kidney disease, unspecified Creatinine, 24 Hr Group 2 Months I10 - Essential (primary) hypertension, N18.9 - Chronic kidney disease, unspecified Coding Level of Care Code Est Pt Level 4 (68245) Diagnoses Hypertension I10 CKD (chronic kidney disease) N18.9
== END 2024-09-17 15:07 | disposition home or self-care (01) ==
LOC: HO.HKAM 14:47
PROVIDERS: PCP Family Medicine; Visit Provider Internal Medicine Hypertension Specialist
DX: I12.9 Hypertensive chronic kidney disease with stage 1 through stage 4 chronic kidney disease, or unspecified chronic kidney disease (principal); E11.22 Type 2 diabetes mellitus with diabetic chronic kidney disease; N18.9 Chronic kidney disease, unspecified
CPT/HCPCS: 99214

== ENCOUNTER → 2024-09-17 14:47 | Outpatient (BNVA) | payer MEDICAID, SELFPAY | PROVIDERS: PCP Family Medicine; Visit Provider Internal Medicine Hypertension Specialist | DX: I12.9 Hypertensive chronic kidney disease with stage 1 through stage 4 chronic kidney disease, or unspecified chronic kidney disease (principal); E11.22 Type 2 diabetes mellitus with diabetic chronic kidney disease; N18.9 Chronic kidney disease, unspecified | CPT/HCPCS: 99212 ==

== ENCOUNTER 2024-10-06 16:55 | Outpatient (REF) | payer MEDICAID, SELFPAY ==
[2024-10-07 17:13] LABS: Creatinine, mg/dL 60.73; Creatinine, mg/dL 61.32
[2024-10-08 07:17] LABS: Creatinine, 24Hr Urine 1.5 G/Day (1.0-2.0); Total Volume 24 Hour Urine 2500 mL
[2024-10-08 07:18] LABS: Creatinine, 24Hr Urine 1.5 G/Day (1.0-2.0); Total Volume 24 Hour Urine 2500 mL
[2024-10-08 07:20] LABS: Creatinine (CrCl) 1.28 mg/dL (0.5-1.4); Creatinine Clearance 83.1 mL/min (85-125)
== END 2024-10-06 16:56 | disposition home or self-care (01) ==
LOC: HO.HHCLNP 16:55
PROVIDERS: Visit Provider Internal Medicine Hypertension Specialist
DX: I12.9 Hypertensive chronic kidney disease with stage 1 through stage 4 chronic kidney disease, or unspecified chronic kidney disease (principal); N18.9 Chronic kidney disease, unspecified
CPT/HCPCS: 82570; 82575

== ENCOUNTER 2024-10-07 13:22 | Outpatient (REF) | payer MEDICAID, SELFPAY ==
[2024-10-07 16:12] LABS: Hemoglobin 11.4 g/dl (12.0-16.0); Mean Corpuscular HGB Conc 32.6 g/dl (31.0-35.0); Mean Corpuscular Hemoglobin 29.2 pg (27.0-33.0); Mean Corpuscular Volume 89.5 fL (80.0-98.0); Platelet Count 247 X10*3/uL (160-400); Red Blood Count 3.91 X10*6/uL (4.20-5.50); Red Cell Distribution Width 13.6 % (11.0-16.0)
[2024-10-07 16:29] LABS: Anion Gap 13 (12-20); Blood Urea Nitrogen 21 mg/dL (9-16); Calcium 9.8 mg/dL (8.4-10.2); Carbon Dioxide 28 mmol/L (22-29); Chloride 105 mmol/L (96-108); Estimated Glomerular Filt Rate 43; Glucose Random 78 mg/dL (60-115); Potassium 4.2 mmol/L (3.3-5.1); Sodium 142 mmol/L (135-145)
== END 2024-10-07 13:23 | disposition home or self-care (01) ==
LOC: HO.HHCL 13:22
PROVIDERS: Visit Provider Internal Medicine Hypertension Specialist
DX: I12.9 Hypertensive chronic kidney disease with stage 1 through stage 4 chronic kidney disease, or unspecified chronic kidney disease (principal); N18.9 Chronic kidney disease, unspecified
CPT/HCPCS: 36415; 80048; 85027

== ENCOUNTER 2024-10-15 13:16 | Outpatient (AMB) | payer MEDICAID, SELFPAY ==
[2024-10-15 13:22] VITALS: BP 100/72; PULSE 72; O2SAT 97
--- NOTE | 2024-10-15 13:22 | HO.NEPHOV_ITS ---
Vital Signs 10/15/24 13:22 Height 5 ft 6 in BP 100/72 Blood Pressure Location Lt radial Position Sitting Pulse 72 Pulse Source Pulse Oximeter Pulse Oximetry (%) 97 Oxygen Delivery Method Room Air Intake Visit Reasons: follow up/ Conf Oil Transport Driver Required: Yes Oil Transport Driver Name: Clyde [id number] Accompanied by: Self / Same As Patient Allergies No Known Allergies [No Known Allergies*] Allergy (Verified 10/15/24 13:24) Medication List - Last Reconciled 10/15/24 by Stephan Combs MD alcohol swabs (Alcohol Prep Pads) pad topical aspirin 81 mg PO DAILY baclofen 10 mg PO DAILY blood sugar diagnostic (FreeStyle Lite Strips) As directed cetirizine (Zyrtec) 10 mg PO DAILY PRN cholecalciferol (vitamin D3) 50 mcg PO DAILY dextrose-vitamin D3 4-400 gram-unit tabs PO dulaglutide (Trulicity) 3 mg subcut QWEEK dulaglutide (Trulicity) mg subcut QWEEK fluticasone propionate 50 mcg/actuation (Flonase Allergy Relief) 1 spray intranasal DAILY gabapentin 100 mg PO TID hydrochlorothiazide 25 mg PO DAILY hydroxyzine pamoate (Vistaril) 50 mg PO BEDTIME lancets (FreeStyle Lancets) As directed lidocaine 5% 1 patch topical DAILY lisinopril 40 mg PO DAILY metformin 850 mg PO DAILY multivitamin with iron 1 tab PO DAILY naloxone 4 mg/actuation (Narcan) 4 mg intranasal Q2M PRN omega-3 fatty acids (Fish Oil Concentrate) 1,000 mg PO DAILY oxycodone-acetaminophen 2.5-325 mg (Percocet) 1 tab PO Q6H PRN oxycodone-acetaminophen 5-325 mg 1 tab PO Q6H PRN pravastatin 80 mg PO BEDTIME propranolol ER (Inderal LA) 120 mg PO DAILY quetiapine 50 mg PO QPM quetiapine (Seroquel) 150 mg PO BEDTIME sertraline (Zoloft) 100 mg PO DAILY sumatriptan succinate (Imitrex) 25 mg PO Q2-4H PRN HPI Comments Details: Micheline is a pleasant 59-year-old woman with a history of hypertension obesity and diabetes mellitus referred for evaluation of CKD. Serum creatinine was 1.5. Overall blood pressure has been well controlled. Blood sugar has been under control as well. [facility] Medical History (Updated 07/30/24 @ 15:09 by Stephan Combs MD) Diverticulosis Hypertension Diabetes mellitus Morbid obesity with BMI of 60.0-69.9, adult Morbid obesity with BMI of 50.0-59.9, adult History of adenomatous polyp of colon Surgical History History of colonoscopy (~2020) Family History Mother Diabetes Social History Alcohol intake: never Patient Tobacco Use Status: Never used Tobacco Physical Exam Vital Signs: Last Vital Signs Pulse 72 10/15/24 13:22 BP 100/72 10/15/24 13:22 Pulse Ox 97 10/15/24 13:22 Oxygen Delivery Method Room Air 10/15/24 13:22 Results Reviewed Results Reviewed: Test Result Flag Reference Creatinine 1.28 0.5-1.4 mg/dL Creat Clear 83.1 L 85-125 mL/min Creatinine,24Hr 1.5 1.0-2.0 G/Day Creatinine,24U 61.32 24 Hr Volume 2500 mL Nephrology Results: Hgb 11.4 g/dl (12.0-16.0) L 10/07/24 WBC 7.0 X10*3/uL (4.8-10.8) 10/07/24 Plt Count 247 X10*3/uL (160-400) 10/07/24 Sodium 142 mmol/L (135-145) 10/07/24 Potassium 4.2 mmol/L (3.3-5.1) 10/07/24 Chloride 105 mmol/L (96-108) 10/07/24 Carbon Dioxide 28 mmol/L (22-29) 10/07/24 BUN 21 mg/dL (9-16) H 10/07/24 Creatinine 1.28 mg/dL (0.5-1.4) 10/07/24 Calcium 9.8 mg/dL (8.4-10.2) 10/07/24 Urine Protein Negative mg/dL (Neg-Trace) 10/08/24 Urine Creatinine 117.95 mg/dL 08/05/24 Assessment & Plan Assessment & Plan (1) Hypertension: Code(s): I10 - Essential (primary) hypertension Category: Medical (2) CKD (chronic kidney disease): Code(s): N18.9 - Chronic kidney disease, unspecified Category: Medical Plan 59-year-old woman with a history of longstanding hypertension diabetes mellitus and obesity with CKD. Serum creatinine was 1.5 mg/dL which has in fact improved to 1.3 mg/dL. She probably has underlying hypertensive diabetic kidney disease. Other possibilities including obstructive uropathy and underlying glomerular disease should be considered and we will rule them out. Goal is to slow the progression of renal disease Continue to avoid nephrotoxic agents including NSAIDs. Maintain blood pressure less than 130/80 Maintain A1c less than 7%. Agree with maximizing CHERYL inhibitors for renal protection. She will also benefit from SGLT2 inhibitors. Discussed importance of low-salt diet and weight loss. 24 hours urine showed a Cr Cl of 83 ml/mt ! BP is rather low Since she has no proteinuria, I will decrease LISINOPRIL form 40 mg down to 30 mg QD Orders: Orders Basic Metabolic Panel 3 Months N18.9 - Chronic kidney disease, unspecified Medications: Changed From lisinopril 40 mg PO DAILY To lisinopril 30 mg PO DAILY 90 tabs 1RF Coding Level of Care Code Est Pt Level 4 (45313) Diagnoses Hypertension I10 CKD (chronic kidney disease) N18.9
== END 2024-10-15 13:39 | disposition home or self-care (01) ==
LOC: HO.HKAM 13:16
PROVIDERS: PCP Family Medicine; Visit Provider Internal Medicine Hypertension Specialist
DX: I12.9 Hypertensive chronic kidney disease with stage 1 through stage 4 chronic kidney disease, or unspecified chronic kidney disease (principal); E11.22 Type 2 diabetes mellitus with diabetic chronic kidney disease; N18.9 Chronic kidney disease, unspecified
CPT/HCPCS: 99214

== ENCOUNTER → 2024-10-15 13:16 | Outpatient (BNVA) | payer MEDICAID, SELFPAY | PROVIDERS: PCP Family Medicine; Visit Provider Internal Medicine Hypertension Specialist | DX: I12.9 Hypertensive chronic kidney disease with stage 1 through stage 4 chronic kidney disease, or unspecified chronic kidney disease (principal); N18.9 Chronic kidney disease, unspecified | CPT/HCPCS: 99212 ==

== ENCOUNTER 2025-01-09 10:46 | Outpatient (REF) | payer MEDICAID, SELFPAY ==
[2025-01-09 13:51] LABS: Appearance Urine Clear; Color Urine Yellow; Glucose Urine UA Negative (Negative); Leukocyte Esterase Urine Large (3+) (Negative); Nitrite Urine Negative (Negative); PH 6.5 (5.0-9.0); Specific Gravity - Urine 1.015 (1.005-1.025); UMIC TRIGGER UA YES; Urine Blood Negative (Negative); Urine Ketones Negative (Negative); Urine Protein Negative (Neg-Trace)
[2025-01-09 13:57] LABS: Bacteria Urine 1+ (None Seen); Hyaline Casts Urine 0-2 /LPF (0-2); RBC Urine 0-2 /HPF (0-2); WBC Urine 21-50 /HPF (0-5)
[2025-01-09 14:05] LABS: Anion Gap 13 (12-20); Blood Urea Nitrogen 22 mg/dL (9-16); Calcium 9.6 mg/dL (8.4-10.2); Carbon Dioxide 27 mmol/L (22-29); Chloride 105 mmol/L (96-108); Estimated Glomerular Filt Rate 44; Glucose Random 122 mg/dL (60-115); Potassium 4.2 mmol/L (3.3-5.1); Sodium 141 mmol/L (135-145)
== END 2025-01-09 10:47 | disposition home or self-care (01) ==
LOC: HO.HHCL 10:46
PROVIDERS: Visit Provider Internal Medicine Hypertension Specialist
DX: N18.9 Chronic kidney disease, unspecified (principal)
CPT/HCPCS: 36415; 80048; 81001

== ENCOUNTER 2025-01-14 12:43 | Outpatient (AMB) | payer MEDICAID, SELFPAY ==
[2025-01-14 13:11] VITALS: BP 110/78; PULSE 69; O2SAT 97
--- NOTE | 2025-01-14 13:11 | HO.NEPHOV ---
Vital Signs 01/14/25 13:11 Height 5 ft 6 in BP 110/78 Blood Pressure Location Lt radial Position Sitting Pulse 69 Pulse Source Pulse Oximeter Pulse Oximetry (%) 97 Oxygen Delivery Method Room Air Intake Visit Reasons: 3 month fu/ Conf Office Lead Required: Yes Office Lead Name: Toy Alvarado [id number] Accompanied by: Self / Same As Patient Allergies No Known Allergies [No Known Allergies*] Allergy (Verified 01/14/25 13:12) Medication List - Last Reconciled 01/14/25 by Stephan Combs MD alcohol swabs (Alcohol Prep Pads) pad topical aspirin 81 mg PO DAILY baclofen 10 mg PO DAILY blood sugar diagnostic (FreeStyle Lite Strips) As directed cetirizine (Zyrtec) 10 mg PO DAILY PRN cholecalciferol (vitamin D3) 50 mcg PO DAILY dextrose-vitamin D3 4-400 gram-unit tabs PO dulaglutide (Trulicity) 3 mg subcut QWEEK dulaglutide (Trulicity) mg subcut QWEEK fluticasone propionate 50 mcg/actuation (Flonase Allergy Relief) 1 spray intranasal DAILY gabapentin 100 mg PO TID hydrochlorothiazide 25 mg PO DAILY hydroxyzine pamoate (Vistaril) 50 mg PO BEDTIME lancets (FreeStyle Lancets) As directed lidocaine 5% 1 patch topical DAILY lisinopril 30 mg PO DAILY metformin 850 mg PO DAILY multivitamin with iron 1 tab PO DAILY naloxone 4 mg/actuation (Narcan) 4 mg intranasal Q2M PRN omega-3 fatty acids (Fish Oil Concentrate) 1,000 mg PO DAILY oxycodone-acetaminophen 2.5-325 mg (Percocet) 1 tab PO Q6H PRN oxycodone-acetaminophen 5-325 mg 1 tab PO Q6H PRN pravastatin 80 mg PO BEDTIME propranolol ER (Inderal LA) 120 mg PO DAILY quetiapine 50 mg PO QPM quetiapine (Seroquel) 150 mg PO BEDTIME sertraline (Zoloft) 100 mg PO DAILY sumatriptan succinate (Imitrex) 25 mg PO Q2-4H PRN HPI Comments Details: Micheline is a pleasant 59-year-old woman with a history of hypertension obesity and diabetes mellitus referred for evaluation of CKD. Serum creatinine was 1.5. No new issues Overall blood pressure has been well controlled. Blood sugar has been under control as well. [facility] Medical History (Updated 07/30/24 @ 15:09 by Stephan Combs MD) Diverticulosis Hypertension Diabetes mellitus Morbid obesity with BMI of 60.0-69.9, adult Morbid obesity with BMI of 50.0-59.9, adult History of adenomatous polyp of colon Surgical History History of colonoscopy (~2020) Family History Mother Diabetes Social History Alcohol intake: never Patient Tobacco Use Status: Never used Tobacco Physical Exam Vital Signs: Last Vital Signs Pulse 69 01/14/25 13:11 BP 110/78 01/14/25 13:11 Pulse Ox 97 01/14/25 13:11 Oxygen Delivery Method Room Air 01/14/25 13:11 Comfortable Neck supple no JVD. Lungs entry equal no rales. Heart S1-S2 heard no gallop or rub. Abdomen soft nontender. Neuro alert awake oriented. No asterixis. Extremities no edema. Results Reviewed Nephrology Results: Hgb 11.4 g/dl (12.0-16.0) L 10/07/24 WBC 7.0 X10*3/uL (4.8-10.8) 10/07/24 Plt Count 247 X10*3/uL (160-400) 10/07/24 Sodium 141 mmol/L (135-145) 01/09/25 Potassium 4.2 mmol/L (3.3-5.1) 01/09/25 Chloride 105 mmol/L (96-108) 01/09/25 Carbon Dioxide 27 mmol/L (22-29) 01/09/25 BUN 22 mg/dL (9-16) H 01/09/25 Creatinine 1.25 mg/dL (0.5-1.4) 01/09/25 Calcium 9.6 mg/dL (8.4-10.2) 01/09/25 Urine Protein Negative mg/dL (Neg-Trace) 01/09/25 Urine Creatinine 117.95 mg/dL 08/05/24 Assessment & Plan Assessment & Plan (1) Hypertension: Code(s): I10 - Essential (primary) hypertension Category: Medical (2) CKD (chronic kidney disease): Code(s): N18.9 - Chronic kidney disease, unspecified Category: Medical Plan 59-year-old woman with a history of longstanding hypertension diabetes mellitus and obesity with CKD. Serum creatinine was 1.5 mg/dL which has in fact improved to 1.3 mg/dL. She probably has underlying hypertensive diabetic kidney disease. Other possibilities including obstructive uropathy and underlying glomerular disease should be considered and we will rule them out. Goal is to slow the progression of renal disease Continue to avoid nephrotoxic agents including NSAIDs. Maintain blood pressure less than 130/80 Maintain A1c less than 7%. Agree with maximizing CHERYL inhibitors for renal protection. She will also benefit from SGLT2 inhibitors. Discussed importance of low-salt diet and weight loss. 24 hours urine showed a Cr Cl of 83 ml/mt ! BP was low Since she has no proteinuria, I decreases LISINOPRIL from 40 mg down to 30 mg QD and she is doing well. Needs weight loss Increase physical activity No changes made today Coding Level of Care Code Est Pt Level 4 (44711) Diagnoses Hypertension I10 CKD (chronic kidney disease) N18.9
--- OUTSIDE RECORDS SUMMARY | 2025-01-14 15:03 | XMS_ITS | Encounter Summary ---
Author Organization [employer] Address 75 [facility] 7t [place] [address] Care Team Providers Care Legal Billing Analyst Name Role Phone Jeri Stewart DO Primary Care Provider + [phone] Reason for Visit * Reason Comments Routine Cleaning Dental Exam perio chart x-rays Encounter Details Date Type Department Care Team (Late st Contact Info) Description 12/16/2024 9:00 AM EST Office Visit [facility] ADULT DENTAL [address] [place] [address] Mario Alberto Adela [address] [place] [address] Tipped teeth (Primary Dx); Periodontal disease; Acute gingival inflammation; Dental plaque Social History Tobacco Use Types Packs/Day Years Used Date Smoking Tobacco: Never Passive Smoke Exposure: Never Smokeless Tobacco: Never Alcohol Use Standard Drinks/Week Comments Never 0 (1 standard drink = 0.6 oz pur e alcohol) Depression Answer Date Recorded Patient Health Questionnaire-9 Score 2 05/23/2024 Patient Health Questionnaire-9 Score 2 05/23/2024 Last PHQ-9: Questionnaire Data Not on file 0 05/23/2024 Housing Stability Answer Date Recorded What is your housing situation today? I have chari mann 05/23/[address] you li ve. Do you have problems with any of the following? None of the above 05/23/2024 Food Insecurity Answer Date Recorded Within the past 12 months, y ou worried that your food would run out before you got money to buy more: Never True 05/23/2024 Within the past 12 months,th e food you bought just didn't last and you didn't have enough money to get more: Never True Transportation Answer Date Recorded In the past 12 months, has l ack of transportation kept you from medical appts, meetings, work or from getting things needed for daily living? No 05/23/2024 Utilities Answer Date Recorded In the past 12 months, has t he electric, gas, oil or water company threatened to shut off services in your home? No 05/23/2024 Depression Answer Date Recorded Patient Health Questionnaire-2 Score 0 05/23/2024 Internet Access Answer Date Recorded Internet Access Q1 Yes 06/27/2024 Internet Access Q2 Not on file 06/27/2024 Comments Unknown Sex and Gender Information Value Date Recorded Sex Assigned at Female 08/28/2022 10:15 AM EDT Legal Sex Female 10:15 AM EDT Gender Identity Female 08/28/2022 10:15 AM EDT Sexual Orientation Straight 08/28/2022 10 :15 AM EDT documented as of this encounter Last Filed Vital Signs Vital Sign Reading Time Taken Comments Blood Pressure 132/76 12/16/2024 8:58 AM EST Pulse - - Temperature - - Respiratory Rate - - Oxygen Saturation - - Inhaled Oxygen Concentration - - Weight - - Height - - Body Mass Index - - documented in this encounter Progress Notes * Adela Llanes - 12/16/2024 9:00 AM EST Appoint at 9 am for x-rays, p. Exam, perio chart, prophy or gross debridement. Patient ID: Judi Lobato is a 59 y.o. female. Time Out: Timeout Date: 12/16/24, Timeout Time: 0900 (x-rays, perio chart, Gross scaling, P. exam) Location: [facility] Tooth: Maxilla and Mandible Procedure: Exam, X-rays, Prophylaxis, and Perio chart Verified the above with patient, sales and marketing assistant, and provider. Confirmed via patient's chart, intraorally and by radiographs. Animal Trainer Supervisor: not applicable Medical Hx: Vitals: Blood pressure 132/76. Medications, Med Hx reviewed with patient and updated in chart. Treatment Provided Dental procedures in this visit D1110 - PROPHYLAXIS - ADULT Full (Completed) Service provider: Adela Llanes [place] provider: Case Reilly DDS D0274 - BITEWINGS - 4 RADIOGRAPHIC IMAGES (Completed) Service provider: Adela Llanes [place] provider: Case Reilly DDS D1330 - ORAL HYGIENE INSTRUCTIONS (Completed) Service provider: Adela Llanes Billing provider: Case Reilyl DDS D0220 - INTRAORAL - PERIAPICAL FIRST RADIOGRAPHIC IMAGE (Completed) Service provider: Adela Llanes Billing provider: Case Reilly DDS D0230 - INTRAORAL - PERIAPICAL EACH ADDITIONAL RADIOGRAPHIC IMAGE (Completed) Service provider: Adela Mario Alberto Billing provider: Case Reilly DDS D9450 - CASE PRESENTATION, DETAILED AND EXTENSIVE TREATMENT PLANNING (Completed) Service provider: Adelastu Llanes Billing provider: Case Reilly DDS D0230 - INTRAORAL - PERIAPICAL EACH ADDITIONAL RADIOGRAPHIC IMAGE (Completed) Service provider: Adelastu Llanes Billing provider: Case Reilly DDS D0230 - INTRAORAL - PERIAPICAL EACH ADDITIONAL RADIOGRAPHIC IMAGE (Completed) Service provider: Adela Llanes Billing provider: Case Reilly DDS Instruments Used: Ultrasonic Scalers and Prophy angle Fluoride: N/A Oral Cancer Screening: No lesions Head/Neck Exam: No Lesions Calculus: None Plaque: Moderate and Generalized Stain: Light Bleeding: Moderate and Generalized, post -op rinsed with chlorhexidine Gingiva: Perio Charting Completed, Bleeding on probing, Recession- localized, Edematous, and Erythematous OH: Pt to improve OH at home. Perio Chart: Completed: 2 mm to 12 mm in depths,very deep pockets due to bone loss and gingival inflammation, mainly on mandibular teeth. Dr. Reilly did not recommend SRP since pt does not exhibits calculus, just inflammation, bleeding and plaque. Pt to have #26 EXO. Oral hygiene instructions provided to patient including brushing technique and flossing. Recommendations: [place] two times daily, modified ewing technique, Floss daily, Electric toothbrush, Soft bristle toothbrush, [place] Tongue, Anti-sensitivity toothpaste, Listerine Recall Frequency: 6 mo Pt SFS for mouth guard. NV: Dr. Reilly EXO #26, and all other TX. Hygienist: Adela Llanes RDH * Case Reilly DDS - 12/16/2024 9:00 AM EST Images from the original note were not included. Chief Complaint(s) - I have a loose tooth in lower front region which has been bothering me Soft and Hard tissue findings- Negative; Head and Neck exam- No abnormal findings. TMJ/Occlusal - The patient's TMJ function is within normal limits. Clinical examination revealed that tooth #26 exhibits grade III mobility, while tooth #9 presents with severe gingival recession andextrusion. An anterior traumatic bite was noted. A referral to a radiologic tech for an occlusal analysis was offered but declined by the patient. The patient has not been using her partial dentures. Tooth #31 has supra- erupted, leading to insufficient restorative space for teeth #2 and #3. The patient was advised to bring her partials to future visits to assess their fit and adaptation. Additionally, a christianity is needed for sealing the access cavity in tooth #9, and a facial christianity is needed for tooth #7 (to be re-evaluated in the next visit) Oral Cancer Risk - Low. Caries Risk - High Perio Risk - High Risks/CC Addressed - Yes; Oral Hygiene Instruction Provided - Yes Referrals - None * aCse Reilly DDS - 12/16/2024 9:00 AM EST Images from the original note were not included. Comprehensive clinical and radiographic periodontal examination and charting review. Periodontal disease - type III Reviewed perio diagnosis, restorative treatment plan, dental charting, occlusion and oral cancer screening. Patient is aware that periodontal disease is a progressive non-curable disease. All treatment efforts are designed to preserve the dentition as long as possible. documented in this encounter Plan of Treatment Upcoming Encounters Date Type Department Care Team (Late st Contact Info) Description 01/16/2025 9:15 AM EDT Office Visit [facility] [address] [place] [address] Jeri Stewart DO [address] [place], [place] [phone] 01/16/2025 10:00 AM EDT Office Visit [facility] ADULT DENTAL [address] [place] [address] Case Reilly DDS [address] [place] [address] 01/20/2025 11:00 AM EDT Office Visit [facility] [address] [place] [address] 06/16/2025 8:00 AM EDT Office Visit [facility] ADULT DENT[facility] [address] [place] [address] Adela Llanes [address] [place] [address] Scheduled Orders Name Type Priority Associated Diagnoses Orde r Schedule 26 26 EXTRACTION, ERUPTED TOOTH OR EXPOSED ROOT (ELEVATION/FORCEPS REMOVAL) Dental Routine [address] arting 12/16/2024 6 FI 6 FI RESIN-BASED COMPOSITE - 2 SURF, ANTERIOR Dental Routine [address] ing 12/16/2024 Jing Jing OCCLUSAL GUARD - HARD APPLIANCE, FULL ARCH Dental Routine [address] arting 12/16/2024 CASE PRESENTATION, DETAILED AND EXTENSIVE TREATMENT PLANNING Dental Routine 1 Occurrences starting 12/16/2024 ORAL HYGIENE INSTRUCTIONS Dental Routine 1 Occurrences starting 12/16/2024 7 F 7 F RESIN-BASED COMPOSITE - 1 SURF, ANTERIOR Dental Routine [address] arting 12/18/2024 9 9 CORE BUILDUP, INCL ANY PINS WHEN REQ Dental Routine 1 Occurrences starting 12/18/2024 26 26 ADD TOOTH TO EXISTING PARTIAL DENTURE Dental Routine 1 Occur rences starting 12/18/2024 documented as of this encounter Procedures Procedure Name Priority Date/Time Associated Diagnosis Comments Full PROPHYLAXIS - ADULT Routine 025 9:00 AM EST Periodontal disease Acute gingival inflammation Dental plaque PERIODIC ORAL EVALUATION - ESTABLISHED PATIENT Routine 12/16/2024 9:00 AM EST ORAL HYGIENE INSTRUCTIONS Routine 2024 9:00 AM EST Tipped teeth Periodontal disease Acute gingival inflammation Dental plaque INTRAORAL - PERIAPICAL FIRST RADIOGRAPHIC IMAGE Routine 12/16/2024 9:00 AM EST Tipped teeth Periodontal disease Acute gingival inflammation Dental plaque INTRAORAL - PERIAPICAL EACH ADDITIONAL RADIOGRAPHIC IMAGE Routine 12/16/2024 9:00 AM EST INTRAORAL - PERIAPICAL EACH ADDITIONAL RADIOGRAPHIC IMAGE Routine 12/16/2024 9:00 AM EST INTRAORAL - PERIAPICAL EACH ADDITIONAL RADIOGRAPHIC IMAGE Routine 12/16/2024 9:00 AM EST Tipped teeth Periodontal disease Acute gingival inflammation Dental plaque COMPREHENSIVE PERIODONTAL EVALUATION - NEW OR ESTABLISHED PATIENT Routine 12/16/2024 9:00 AM EST CASE PRESENTATION, DETAILED AND EXTENSIVE TREATMENT PLANNING Routine 12/16/2024 9:00 AM EST BITEWINGS - 4 RADIOGRAPHIC IMAGES Routine 12/16/2024 9:00 AM EST Tipped teeth Periodontal disease Acute gingival inflammation Dental plaque documented in this encounter Visit Diagnoses Diagnosis Tipped teeth- Primary Horizontal displacement of teeth Periodontal disease Unspecified gingival and periodontal disease Acute gingival inflammation Acute gingivitis, plaque induced Dental plaque Accretions on teeth documented in this encounter Additional Health Concerns Assessment Noted Time PHQ-9 Depression Total Score: 2 05/23/20 24 9:34 AM EDT documented as of this encounter Care Teams Legal Billing Analyst Relationship Specialty Start Date End Date Jeri Stewart DO [address] [place] [address] PCP - General Family Medicine 10/29/18 documented as of this encounter
--- OUTSIDE RECORDS SUMMARY | 2025-01-14 15:03 | XMS_ITS | Encounter Summary ---
Author Organization [employer] Address 75 [facility] 7t [place] [address] Care Team Providers Care Minister Of Religion Name Role Phone Jeri Stewart DO Primary Care Provider [phone] Encounter Details Date Type Department Care Team (Late st Contact Info) Description 03/07/2023 Orders Only [facility] MED & PEDS [address] [place], [place] [phone] Jeri Rush LPN Social History Tobacco Use Types Packs/Day Years Used Date Smoking Tobacco: Never Assessed Comments Unknown Sex and Gender Information Value Date Recorded Sex Assigned at Female 08/28/2022 10:15 AM EDT Legal Sex Female 10:15 AM EDT Gender Identity Female 08/28/2022 10:15 AM EDT Sexual Orientation Straight 08/28/2022 10 :15 AM EDT documented as of this encounter Plan of Treatment Upcoming Encounters Date Type Department Care Team (Late st Contact Info) Description 01/16/2025 9:15 AM EDT Office Visit [facility] MEDICINE [address] [place] [address] Jeri Stewart DO [address] [place] [address] 01/16/2025 10:00 AM EDT Office Visit [facility] ADULT DENTAL [address] [place] [address] Case Reilly DDS [address] [place] [address] 01/20/2025 11:00 AM EDT Office Visit [facility] MEDICINE [address] [place] [address] 06/16/2025 8:00 AM EDT Office Visit [facility] ADULT DENTAL [address] [place], [place] [phone] Adela Llanes [address] [place] [address] documented as of this encounter Visit Diagnoses Not on filedocumented in this encounter Care Teams Minister Of Religion Relationship Specialty Start Date End Date Jeri Stewart DO [address] [place] [address] PCP - General Family Medicine 10/29/18 documented as of this encounter
--- OUTSIDE RECORDS SUMMARY | 2025-01-14 15:03 | XMS_ITS | Encounter Summary ---
Author Organization [employer] [facility] Address 75 [facility] 7t [place] [address] Care Team Providers Care Truck Driving Name Role Phone Jeri Stewart DO Primary Care Provider + [phone] Reason for Visit * Reason Onset Date Comments Med Refill 02/16/2023 Encounter Details Date Type Department Care Team (Late Contact Info) Description 02/16/2023 Telephone [facility] MEDICINE [address] [place] [address] Jeri Stewart DO [address] [place] [address] Med Refill Social History Tobacco Use Types Packs/Day Years Used Date Smoking Tobacco: Never Assessed Comments Unknown Sex and Gender Information Value Date Recorded Sex Assigned at Female 08/28/2022 10:15 AM EDT Legal Sex Female 10:15 AM EDT Gender Identity Female 08/28/2022 10:15 AM EDT Sexual Orientation Straight 08/28/2022 10 :15 AM EDT documented as of this encounter Miscellaneous Notes * Telephone Encounter - Tommy Pardo - 02/16/2023 11:03 AM EDT Tc from pt requesting med refill on oxyCODONE-acetaminophen (Percocet) 5-325 MG tablet Please sent to [facility]/pharmacy #[id number] - [place] [address] - [address] [facility] documented in this encounter Plan of Treatment Upcoming Encounters Date Type Department Care Team (Late Contact Info) Description 01/16/2025 9:15 AM EDT Office Visit [facility] [address] [place] [address] Jeri Stewart DO [address] [place] [address] 01/16/2025 10:00 AM EDT Office Visit [facility] ADULT DENTAL [address] [place] [address] Case Reilly DDS [address] [place] [address] 01/20/2025 11:00 AM EDT Office Visit [facility] MEDICINE [address] [place] [address] 06/16/2025 8:00 AM EDT Office Visit [facility] ADULT DENTAL [address] [place] [address] Adela Llanes [address] [place] [address] documented as of this encounter Visit Diagnoses Not on filedocumented in this encounter Care Teams Truck Driving Relationship Specialty Start Date End Date Jeri Stewart DO [address] [place] [address] PCP - General Family Medicine 10/29/18 documented as of this encounter
--- OUTSIDE RECORDS SUMMARY | 2025-01-14 15:03 | XMS_ITS | Encounter Summary ---
Author Organization [employer] Address [address] [facility] 7t [place] [address] Care Team Providers Care Rn Corrections Name Role Phone Jeri Stewart DO Primary Care Provider + [phone] Encounter Details Date Type Department Care Team (Late st Contact Info) Description 09/07/2023 Abstract [facility] ADULT DENTAL [address] [place], [place] [phone] Nelda Portillo DDS [address] [place], [place] [phone] Social History Tobacco Use Types Packs/Day Years Used Date Smoking Tobacco: Never Passive Smoke Exposure: Never Smokeless Tobacco: Never Alcohol Use Standard Drinks/Week Comments Never 0 (1 standard drink = 0.6 oz pur e alcohol) Depression Answer Date Recorded Patient Health Questionnaire-9 Score 14 04/10/2023 Housing Stability Answer Date Recorded What is your housing situation today? I have chari mann 08/23/[address] you li ve. Do you have problems with any of the following? None of the above 08/23/2023 Food Insecurity Answer Date Recorded Within the past 12 months, y ou worried that your food would run out before you got money to buy more: Never True 08/23/2023 Within the past 12 months,th e food you bought just didn't last and you didn't have enough money to get more: Never True Transportation Answer Date Recorded In the past 12 months, has l ack of transportation kept you from medical appts, meetings, work or from getting things needed for daily living? No 08/23/2023 Utilities Answer Date Recorded In the past 12 months, has t he electric, gas, oil or water company threatened to shut off services in your home? No 08/23/2023 Depression Answer Date Recorded Patient Health Questionnaire-2 Score 2 04/10/2023 Comments Unknown Sex and Gender Information Value [...] Description 01/16/2025 9:15 AM EDT Office Visit [facility] MEDICINE [address] [place] [address] Jeri Stewart DO [address] [place] [address] 01/16/2025 10:00 AM EDT Office Visit [facility] ADULT DENTAL [address] [place] [address] Case Reilly DDS [address] [place] [address] 01/20/2025 11:00 AM EDT Office Visit [facility] MEDICINE [address] [place] [address] 06/16/2025 8:00 AM EDT Office Visit [facility] ADULT DENTAL [address] [place] [address] Adela Llanes [address] [place] [address] documented as of this encounter Visit Diagnoses Not on filedocumented in this encounter Additional Health Concerns Assessment Noted Time PHQ-9 Depression Total Score: 14 023 10:19 AM EDT documented as of this encounter Care Teams Rn Corrections Relationship Specialty Start Date End Date Jeri Stewart DO [address] [place] [address] PCP - General Family Medicine 10/29/18 documented as of this encounter
--- OUTSIDE RECORDS SUMMARY | 2025-01-14 15:03 | XMS_ITS | Encounter Summary ---
Author Organization [employer] Address [address] [facility] 7t [place] [address] Care Team Providers Care Tax Compliance Agent Name Role Phone Jeri Stewart DO Primary Care Provider + [phone] Encounter Details Date Type Department Care Team (Late st Contact Info) Description 07/08/2024 Telephone [facility] ADULT DENTAL [address] [place], [place] [phone] Case Reilly DDS [address] [place] [address] Social History Tobacco Use Types Packs/Day Years [...] Description 01/16/2025 9:15 AM EDT Office Visit [facility] MEDICINE [address] [place] [address] Jeri Stewart DO [address] [place] [address] 01/16/2025 10:00 AM EDT Office Visit [facility] ADULT DENTAL [address] [place] [address] Case Reilly DDS [address] [place] [address] 01/20/2025 11:00 AM EDT Office Visit [facility] MEDICINE [address] [place] [address] 06/16/2025 8:00 AM EDT Office Visit [facility] ADULT DENTAL [address] [place] [address] Adela Llanes [address] [place] [address] documented as of this encounter Visit Diagnoses Not on filedocumented in this encounter Additional Health Concerns Assessment Noted Time PHQ-9 Depression Total Score: 2 05/23/20 24 9:34 AM EDT documented as of this encounter Care Teams Tax Compliance Agent Relationship Specialty Start Date End Date Jeri Stewart DO [address] [place] [id number] PCP - General Family Medicine 10/29/18 documented as of this encounter
--- OUTSIDE RECORDS SUMMARY | 2025-01-14 15:03 | XMS_ITS | Encounter Summary ---
Author Organization [employer] Address [address] [facility] 7t [place] [address] Care Team Providers Care Software Engineer Web Applications Name Role Phone Jeri Stewart DO Primary Care Provider + [phone] Reason for Visit * Reason Onset Date Comments Med Refill 12/22/2024 Encounter Details Date Type Department Care Team ([facility] st Contact Info) Description 12/22/2024 Refill [facility] MEDICINE [address] [place] [address] Jeri Stewart DO [address] [place] [address] Chronic bilateral low back pain, unspecified whether sciatica present Social History Tobacco Use Types Packs/Day Years [...] encounter Miscellaneous Notes * Telephone Encounter - Jus Sauceda - 12/22/2024 3:11 PM EST TC from pt requesting medication refill. Medications needing refill : oxyCODONE-acetaminophen (Percocet) 5-325 MG tablet To be sent to: [facility]/pharmacy #[address] [place] [address] documented in this encounter Plan of Treatment Upcoming Encounters Date Type Department Care Team (Late st Contact Info) Description 01/16/2025 9:15 AM EDT Office Visit [facility] MEDICINE [address] [place] [address] Jeri Stewart DO [address] [place] [address] 01/16/2025 10:00 AM EDT Office Visit [facility] ADULT DENTAL [address] [place] [address] Case Reilly DDS [address] [place] [address] 01/20/2025 11:00 AM EDT Office Visit [facility] MED[facility]INE [address] [place] [address] 06/16/2025 8:00 AM EDT Office Visit [facility] ADULT DENTAL [address] [place] [address] Adela Llanes [address] [place] [address] documented as of this encounter Visit Diagnoses Diagnosis Chronic bilateral low back pain, unspecified whether sciatica present documented in this encounter Additional Health Concerns Assessment Noted Time PHQ-9 Depression Total Score: 2 05/23/20 24 9:34 AM EDT documented as of this encounter Care Teams Software Engineer Web Applications Relationship Specialty Start Date End Date Jeri Stewart DO [address] [place] [address] PCP - General Family Medicine 10/29/18 documented as of this encounter
--- OUTSIDE RECORDS SUMMARY | 2025-01-14 15:03 | XMS_ITS | Clinical Summary ---
Author Organization [employer] Address [address] [facility] [address] [place] [address] Care Team Providers Care History Teacher Name Role Phone Jeri Stewart DO Primary Care Provider [phone] Allergies No known active allergies Medications cetirizine (ZyrTEC) 10 MG tablet Take 10 mg by mouth in the morning. 09/15/20 22 Active hydrOXYzine pamoate (Vistaril) 50 MG capsule TAKE 1 CAPSULE BY MOUTH EVERY DAY AT BEDTIME NEEDED 03/14/20 23 Active QUEtiapine (SEROquel) 50 MG tablet TAKE 1 TABLET BY MOUTH EVERY EVENING TAKE WITH QUETIAPINE 100 MG= 150 MG AT BEDTIME 03/14/20 23 Active QUEtiapine (SEROquel) 100 MG tablet TAKE 1 TABLET BY MOUTH EVERY EVENING TAKE WITH QUETIAPINE 50 MG 03/26/20 23 Active sertraline (Zoloft) 100 MG tablet Take 100 mg by mouth in the morning. 03/30/20 23 Active Blood Glucose Monitoring Suppl (FreeStyle Lite) w/Device kit 1 each 2 times daily. 1 kit 04/10/20 23 Active naproxen (Naprosyn) 500 MG tablet TAKE 1 TABLET BY MOUTH TWICE A DAY NEEDED FOR PAIN 60 tablet 09/28/20 23 Active lisinopril 40 MG tablet TAKE 1 TABLET BY MOUTH EVERY DAY 90 tablet 3 10/30/19 24 Active FREESTYLE LITE test stripIndication s:Type 2 diabetes mellitus with diabetic polyneuropathy, without long-term current use of insulin ([facility]) USE TO CHECK BLOOD SUGAR TWICE A DAY 100 strip 11 06/17/20 24 Active dulaglutide (Trulicity) 3 MG/0.5ML solution pen-injector Inject 3 mg under the skin 1 (one) time per week. 4 each 07/09/20 Active gabapentin (Neurontin) 100 MG capsule Take 1 capsule (100 mg) by mouth 3 times daily. 90 capsule 07/09/20 025 Active lidocaine (Lidoderm) 5 % patch Apply 1-2 patches topically if needed each day for mild pain. Remove & discard patch within 12 hours or as directed by MD. 60 patch 07/09/20 025 Active aspirin (Aspirin Low Dose) 81 MG EC tablet Take 1 tablet (81 mg) by mouth Once per day. 90 tablet 08/22/20 24 Active hydroCHLOROthia zide (HYDRODiuril) 25 MG tablet Take 1 tablet (25 mg) by mouth Once per day. 90 tablet 09/08/20 24 Active pravastatin (Pravachol) 80 MG tablet Take 1 tablet (80 mg) by mouth at bedtime. 90 tablet 09/08/20 24 Active D3 50 MCG (2000 UT) tablet TAKE 1 TABLET BY MOUTH EVERY DAY 90 tablet 11/13/19 25 Active metFORMIN (Glucophage) 1000 MG tablet TAKE 1 TABLET BY MOUTH TWICE A DAY WITH BREAKFAST AND DINNER 180 tablet 11/13/19 25 Active propranolol LA (Inderal LA) 120 MG 24 hr capsuleIndicati ons:Primary hypertension TAKE 1 CAPSULE BY MOUTH EVERY DAY 90 capsule 11/13/19 25 Active baclofen (Lioresal) 10 MG tabletIndicatio ns:Muscle spasm TAKE 1 TABLET BY MOUTH THREE TIMES A DAY NEEDED FOR MUSCLE SPASM 60 tablet 12/11/19 25 Active oxyCODONE-aceta minophen (Percocet) 5-325 MG tabletIndicatio ns:Chronic bilateral low back pain, unspecified whether sciatica present Take 1 tablet by mouth every 6 (six) hours if needed for severe pain for up to 28 days. Do not start before December 23, 2024. 112 tablet 12/23/19 25 025 Active oxyCODONE-aceta minophen (Percocet) 5-325 MG tabletIndicatio ns:Chronic bilateral low back pain, unspecified whether sciatica present Take 1 tablet by mouth every 6 (six) hours if needed for severe pain for up to 28 days. 112 tablet 01 025 Discontinued(R eorder (will not trigger notification to Pharmacy)) Active Problems Problem Noted Date Diagnosed Date Tipped teeth 12/16/2024 Acute gingival inflammation 12/16/2024 Periodontal disease 12/16/2024 Dental plaque 12/16/2024 skilled nursing current use of opiate analgesic 2023 Overview (11/27/2024): Dx: DDD, lumbar; chronic knee pain Tx: Percocet 5/325mg q 6 hours Last LOCKS INSPECTOR agreement: 11/25/24 Tier II (LOCKS INSPECTOR visit Q3 months) Assessment & Plan (11/27/2024 4:38 PM EST): Timeline: - 11/25/24: Group visit. Utox/pill count as expected. Agreement signed. Chronic knee pain 05/28/2023 Osteoarthritis 05/28/2023 Chronic low back pain 08/11/2015 Degenerative disc disease, lumbar 08/11/2015 Assessment & Plan (11/27/2024 4:36 PM EST): -Good engagement and participation with Group Medical Visit model -Encouraged multifactorial approach to pain control including pharm and non- pharm modalities -UTOX and pill count as expected Assessment & Plan (08/05/2024 1:27 PM EDT): Good engagement and participation with Group Medical Visit model -Encouraged multifactorial approach to pain control including pharm and non- pharm modalities -UTOX and pill count not performed, as last visit with LOCKS INSPECTOR 07/01/2024 and all was normal Assessment & Plan (07/08/2024 2:40 PM EDT): -Good engagement and participation with Group Medical Visit model, today was first visit. -Encouraged multifactorial approach to pain control including pharm and non- pharm modalities -UTOX and pill count not performed, as last visit with LOCKS INSPECTOR 07/01/2024 and all was normal Essential hypertension 08/11/2015 Hyperlipidemia 08/11/2015 Chronic migraine 08/11/2015 BMI 50.0-59.9, adult 08/11/2015 Major depression, recurrent, chronic 08/11/2015 Chronic shoulder pain 08/11/2015 Type 2 diabetes mellitus 08/11/2015 Encounters Date Type Department Care Team Description 01/09/2025 Population Health Risk Score [facility] (C3) Department [address] [phone] Provider, Population Health Generic 01/08/2025 Patient Outreach [facility] [address] [place] [address] Jeri Stewart DO Pre-visit Planning ((Unable to reach for PVP screening, LVM)) 12/22/2024 Refill [facility] [address] [place] [address] Jeri Stewart DO Chronic bilateral low back pain, unspecified whether sciatica present 12/16/2024 9:00 AM EST Office Visit [facility] ADULT DENTAL [address] [place] [address] Mario Alberto Adela Tipped teeth (Primary Dx); Periodontal disease; Acute gingival inflammation; Dental plaque 12/11/2024 Refill [facility] [address] [place] [phone] Jeri Stewart DO Muscle spasm 12/10/2024 Travel 11/28/2024 Telephone [facility] D[facility] [address] [place] [address] Case Reilly DDS 11/25/2024 11:00 AM EST Office Visit [address] [address] Olena Trujillo FNP Degeneration of intervertebral disc of lumbar region with discogenic back pain and lower extremity pain (Primary Dx); long term care administrator current use of opiate analgesic 11/25/2024 Telephone [facility] [address] [place] [phone] Nora Kurtz RN LOCKS INSPECTOR Agreement signed today 11/25/2024 Travel 11/20/[address] [phone] Jeri Stewart DO Appointment Request 11/20/2024 Refill [facility] [address] [place] [phone] Jeri Stewart DO Chronic bilateral low back pain, unspecified whether sciatica present 11/11/2024 Refill [facility] [address] [place] [address] Jeri Stewart, DO Primary hypertension 11/07/2024 Refill [facility] [address] [place] [address] Jeri Stewart, DO Chronic bilateral low back pain, unspecified whether sciatica present 10/27/2024 Refill [facility] [address] [place] [address] Jeri Stewart, Chronic bilateral low back pain, unspecified whether sciatica present 10/24/2024 Refill [facility] [address] [place] [address] Jeri Stewart, DO Chronic bilateral low back pain, unspecified whether sciatica present from Last 3 Months Immunizations Name Administration Dates Next Due Hep B, adult 02/01/2015,10/09/2014,08/03/2014 Influenza injectable quadriv alent IIV4 with preservative 07/24/2017,11/01/2016,08/11/2015 Influenza injectable quadriv alent preservative free 09/12/2023,09/14/2022,09/08/2021,09/01,07/30/2019,12/04/2018 Influenza, IIV3, injectable 08/03/2014, 1,07/07/2010 Influenza, Split (incl. maura fied surface antigen) 09/05/2013,09/04/2012 Influenza, seasonal, injecta ble, preservative free 07/09/2024 Pfizer Covid-19 Vaccine 12+ 09/12/2023 Pneumococcal Conjugate PCV 20 04/10/2023 Pneumococcal Polysaccharide PPSV23 05/25/2010 TD (adult), 2 Lf tetanus tox oid, preservative free, adsorbed 08/25/2008 Tdap 07/09/2024,08/03/2014 Family History Medical History Relation Name Comments Lung cancer Maternal Grandmother Breast cancer Mother Coronary artery disease Mother Diabetes Mother Hypertension Mother Relation Name Status Comments Maternal Grandmother Mother Social History Tobacco Use Types Packs/Day Years Used Date Smoking Tobacco: Never Passive Smoke Exposure: Never Smokeless Tobacco: Never Tobacco Cessation:Counseling Given: Not Answered Alcohol Use Standard Drinks/Week Comments Never 0 [...] Orientation Straight 08/28/2022 10 :15 AM EDT Last Filed Vital Signs Vital Sign Reading Time Taken Comments Blood Pressure 132/76 12/16/2024 8:58 AM EST Pulse 69 07/09/2024 9:12 AM EDT Temperature 36.4 ??C (97.5 ??F) 07/09/2024 9:12 AM ED T Respiratory Rate 18 07/09/2024 9:12 AM EDT Oxygen Saturation 98% 07/09/2024 9:12 AM EDT Inhaled Oxygen Concentration - - Weight 155 kg (341 lb 12.8 oz) 07/09/2024 9:12 A M EDT Height 167.6 cm (5' 6 ) 07/09/2024 9:12 AM EDT Body Mass Index 55.17 07/09/2024 9:12 AM EDT Plan of Treatment Upcoming Encounters Date Type Department Care Team (Late st Contact Info) Description 01/16/2025 9:15 AM EDT Office Visit [facility] [address] [place] [phone] Jeri Stewart DO [address] [place] [address] 01/16/2025 10:00 AM EDT Office Visit [facility] ADULT DENTAL [address] [place] [address] Case Reilly DDS [address] [place] [address] 01/20/2025 11:00 AM EDT Office Visit [facility] [address] [place] [address] 06/16/2025 8:00 AM EDT Office Visit [facility] [address] [place] [address] Mario Alberto Adela [address] [place] [address] Health Maintenance Due Date Last Done Comments CT Colonography 1965 FIT DNA/Cologuard 1965 FIT 1965 FOBT 1965 Sigmoidoscopy 1965 Diabetes: Foot Exam 1975 Alcohol/Substance Use Screening 1977 Zoster Vaccines (1 of 2) 2015 Colonoscopy 01/19/2021 01/20/2016 Colorectal Cancer Screening 01/19/2021 COVID-19 Vaccine ( season) 2024 09/12/2023, 09/14/2022, 09/08/2021, Additional history exists Diabetes: Hemoglobin A1C 01/06/2025 024, 03/31/2024, 03/06/2024, Additional history exists Diabetes: Urine Protein Screening 03/31/2025 03/31/2024, 05/09/2023, 12/22/2021, Additional history exists Lipid Panel 03/31/2025 03/31/2024, 04/28, 10/21/2020 Mammogram 05/08/2025 05/08/2024, 03/30, 04/03/2022, Additional history exists Depression Screening 05/23/2025 05/23/2024, 05/23/20 SDOH Screening 05/23/2025 05/23/2024 Dental Oral Exam 06/16/2025 12/16/2024, , 07/18/2023, Additional history exists Dental Prophylaxis 06/16/2025 12/16/2024, 0 03/13/2024, 07/18/2023, Additional history exists Eye Exam 06/20/2025 06/20/2023, 05/30, 06/20/2023, Additional history exists Tobacco Screening 12/16/2025 12/16/2024 Dental X-Ray: Bitewings 12/17/2025 12/16/19 25, 07/18/2023, 08/23/2020, Additional history exists Dental X-Ray: Full Mouth 07/19/2026 023, 06/09/2019, 02/02/2014 Cervical Cancer Screening 05/23/2027 Pap Smear 05/23/2027 05/23/2024, 05/13/2021 HPV/Cotest 05/23/2029 05/23/2024, 04/28, 10/19/2017 DTaP/Tdap/Td Vaccines (3 - Td or Tdap) 07/09/2034 07/09/2024, 08/03/2014, 08/25/2008 RSV Patients and Patients Aged 60 years or older (1 - 1-dose 75+ series) 2040 Hepatitis B Vaccines Completed 02/01/2015, 10/09/2014, 08/03/2014 Pneumococcal Vaccine: 50+ Years Completed 04/10/2023, 05/25/2010 HIV Screening Completed 05/09/2023, 10/21/2020 Hepatitis C Screening Completed 05/09/2023, 020 Influenza Vaccine Completed 07/09/2024, , 09/14/2022, Additional history exists HIB Vaccines Aged Out No longer eligi ble based on patient's age to complete this topic HPV Vaccines Aged Out No longer eligi ble based on patient's age to complete this topic Hepatitis A Vaccines Aged Out No long er eligible based on patient's age to complete this topic IPV Vaccines Aged Out No longer eligi ble based on patient's age to complete this topic Meningococcal Vaccine Aged Out No kishan candido eligible based on patient's age to complete this topic RSV under 20 months Aged Out No longe r eligible based on patient's age to complete this topic Rotavirus Vaccines Aged Out No longer eligible based on patient's age to complete this topic Procedures Procedure Name Priority Date/Time Associated Diagnosis Comments COMPREHENSIVE PERIODONTAL EVALUATION - NEW OR ESTABLISHED PATIENT Routine 12/16/2024 9:00 AM EST PERIODIC ORAL EVALUATION - ESTABLISHED PATIENT Routine 12/16/2024 9:00 AM EST INTRAORAL - PERIAPICAL EACH ADDITIONAL RADIOGRAPHIC IMAGE Routine 12/16/2024 9:00 AM EST INTRAORAL - PERIAPICAL EACH ADDITIONAL RADIOGRAPHIC IMAGE Routine 12/16/2024 9:00 AM EST CASE PRESENTATION, DETAILED AND EXTENSIVE TREATMENT PLANNING Routine 12/16/2024 9:00 AM EST INTRAORAL - PERIAPICAL EACH ADDITIONAL RADIOGRAPHIC IMAGE Routine 12/16/2024 9:00 AM EST Tipped teeth Periodontal disease Acute gingival inflammation Dental plaque INTRAORAL - PERIAPICAL FIRST RADIOGRAPHIC IMAGE Routine 12/16/2024 9:00 AM EST Tipped teeth Periodontal disease Acute gingival inflammation Dental plaque ORAL HYGIENE INSTRUCTIONS Routine 12/16/2024 9:00 AM EST Tipped teeth Periodontal disease Acute gingival inflammation Dental plaque BITEWINGS - 4 RADIOGRAPHIC IMAGES Routine 12/16/2024 9:00 AM EST Tipped teeth Periodontal disease Acute gingival inflammation Dental plaque Full PROPHYLAXIS - ADULT Routine 12/16/2024 9:00 AM EST Periodontal disease Acute gingival inflammation Dental plaque POCT ESTHER-14 URINE DRUG SCREEN Routine 11/25/2024 1:51 PM EST Degeneration of intervertebral disc of lumbar region with discogenic back pain and lower extremity pain POCT GLYCATED HEMOGLOBIN, TOTAL Routine 07/09/2024 10:06 AM EDT Type 2 diabetes mellitus with diabetic polyneuropathy, without long-term current use of insulin (CMS/HCC) THINPREP IMAGING PAP AND HPV MRNA E6/E7 WITH REFLEX TO HPV 16,18/45 Routine 05/23/2024 10:07 AM EDT BI MAMMOGRAM SCREENING TOMOSYNTHESIS BILATERAL Routine 05/08/2024 10:23 AM EDT LIPID PANEL, STANDARD Routine 03/31/2024 9:45 AM EDT Type 2 diabetes mellitus with diabetic polyneuropathy, without long-term current use of insulin (CMS/HCC) Essential hypertension Other hyperlipidemia Major depression, recurrent, chronic (CMS/HCC) Chronic bilateral low back pain, unspecified whether sciatica present Healthcare maintenance ALBUMIN, RANDOM URINE W/CREATININE Routine 03/31/2024 9:15 AM EDT Type 2 diabetes mellitus with diabetic polyneuropathy, without long-term current use of insulin (CMS/HCC) Essential hypertension Other hyperlipidemia Major depression, recurrent, chronic (CMS/HCC) Chronic bilateral low back pain, unspecified whether sciatica present Healthcare maintenance INTRAORAL - COMPLETE SERIES OF RADIOGRAPHIC IMAGES Routine 07/18/2023 9:00 AM EDT HEPATITIS C ANTIBODY REFLEX Routine 05/09/2023 11:44 AM EDT HIV ANTIBODY/ANTIGEN ([place] DPH) Routine 05/09/2023 11:44 AM EDT HM COLONOSCOPY Routine 01/20/2016 8:37 AM EDT from Last 3 Months or Most Recently Relevant to Health Maintenance Results * POCT ESTHER-14 Urine Drug Screen (11/25/2024 1:51 PM EST) Oxycodone Screen, Urine Positive Urine Urine specimen obtained by clean catch procedure / Unknown 11/25/2024 1:51 PM EST Nora Madsen RN - 11/25/2024 1:51 PM EST UTOX cup Lot#[id number] Exp. 07/23/26 Internal Pass Control Olena Trujillo EVENT MANAGER POINT OF CARE TEST ENTER/EDIT ORDERABLES Final Result * (ABNORMAL) POCT HGB A1C (07/09/2024 10:06 AM EDT) Hemoglobin A1C 6.1(A) 4.0 - 6.0 % QC Media Lot # [id number] Lot# Expiration Date [id number] Blood 07/09/2024 10:0 6 AM EDT Jeri Stewart DO POINT OF CARE TEST ENTER/DIANA T ORDERABLES Edited Result - Final * ThinPrep Imaging Pap and HPV mRNA E6/E7 with Reflex to HPV 16,18/45 (05/23/2024 10:07 AM EDT) Pathologist [facility] HPV 16 RNA [facility] HPV 18/45 RNA [facility] HPV nRNA E6/E7 Not Detected Not Detected [facility] Comment:Methodology: Transcr iption-Mediated AmplificationThis assay detects E6/E7 viral messenger RNA (mRNA) from 14high-risk HPV types (16,18,31,33,35,39,45,51,52,56,58,59,66,68).Cervical sources are required for HPV testing.If a vaginal source from a patient who has had atotal hysterectomy with removal of cervix wassubmitted, please contact the testing laboratoryfor alternative testing options.For additional information, please refer [email or web address](This link if provided for information/educational purposes only.)THIS TEST WAS PERFORMED AT:[employer] [place] [phone] NEVAREZ MD SOURCE: SEE NOTE [facility] Comment:Cervix Report Status: [facility] Clinical Information: SEE NOTE [facility] Comment:None given LMP: SEE NOTE [facility] Comment:NONE GIVEN Prev. PAP: SEE NOTE [facility] Comment:NONE GIVEN Prev. BX: SEE NOTE [facility] Comment:NONE GIVEN Statement Of Adequacy: SEE NOTE [facility] Comment:Satisfactory for niki luation.Endocervical/transformation zone componentpresent. General Categorization: [facility] Interpretation/Result: SEE NOTE [facility] Comment:Cytology Results: Ne gative for intraepitheliallesion or malignancy. Cytology Comment SEE NOTE [facility] Comment:This Pap test has be en evaluated with computerassisted technology. Through Operator: SEE NOTE [facility] Comment:MPG, CT(ASCP)CT scre ening location: [place] [address] Review Through Operator: [facility] Pathologist [facility] PAP Infection [facility] See Note SEE NOTE [facility] Comment:EXPLANATORY NOTE:The Pap is a screening test for cervical cancer. It isnot a diagnostic test and is subject to false negativeand false positive results. It is most reliable when asatisfactory sample, regularly obtained, is submittedwith relevant clinical findings and history, and whenthe Pap result is evaluated along with historic andcurrent clinical information. 05/23/2024 10:0 7 AM EDT 05/23/2024 4:03 PM EDT Narrative [facility] - 05/27/2024 3:10 PM EDT SEE SCANNED RESULTS IN EMRRCERVIX us Jeri Stewart DO LAB PATHOLOGY ORDERABLES Fin al Result [facility] [address] [place] [address] [phone] * BI Mammogram Screening Tomosynthesis Bilateral (05/08/2024 10:23 AM EDT) Anatomical Region Laterality Modality Breast Bilateral Mammography 05/08/2024 10:2 3 AM EDT Narrative 06/03/2024 9:17 PM EDT ? [facility] ? [address] ?[place] [address] ? Mammography Report ? Signed ? Patient: Lobato,Judi ?MR#: [id number] ? : 1965 ?Acct:[id number] ? Age/Sex: 58 / F ?ADM Date: 05/08/24 ? Loc: HO.MAMMO ? Attending Dr: Jeri Stewart DO ? Ordering Physician: Jeri Stewart DO ?Results: 1N ?? egative ? Date of Service: 05/08/24 ?Follow Up: 1 Year From Orig ?? inal Mammogram ? Procedure(s): MM tomosynthesis screening BI ?? Accession Number(s): [id number] ? cc: Jeri Stewart DO ? EXAMINATION: ?? MM SCREENING DIGITAL BREAST TOMOSYNTHESIS, BILATERAL ? CLINICAL INFORMATION: ? Screening. Asymptomatic. ? COMPARISON: ?? Mammography: This study is compared with prior exams dating back to ?? 2019. ? TECHNIQUE: ?? Digital breast tomosynthesis is performed in both the craniocaudal and ?? mediolateral oblique views along with computer-aided detection (CAD). ?? Synthesized 2D images are generated from the tomosynthesis. ? FINDINGS: ?? The breasts are almost entirely fatty (ACR BI-RADS breast composition ?? Category a). ? There are no significant masses, abnormal calcifications, or other ?? abnormalities. ? MM/MM tomosynthesis screening BI ?? IMPRESSION: ?? No mammographic evidence of malignancy. ? ASSESSMENT: ? BI-RADS BI-RADS 1 - Negative ? RECOMMENDATION: ?? Routine annual mammography screening. ? 1 year F/U ? This examination should not preclude the clinical evaluation of a ?? suspicious palpable abnormality. ? This patient's information was entered into a reminder system with a ?? target due date for their next mammogram. ? Dictated By: ?Catrina Adan MD ? Signed By: ?<Electronically signed by Catrina Adan MD in OV> ? 06/03/242051 ? DD/ 1023 ? TD/TT: ? Facialist: ? Procedure Note Whitney, Hawa - 06/03/2024 [facility] [address] [place], [place] [address] Mammography Report Signed Patient: Judi LobatoMR#: [id number] : 1965Acct:[id number] Age/Sex: 58 / FADM Date: 05/08/24 Loc: HO.MAMMO Attending Dr: Jeri Stewart DO Ordering Physician: Jeri Stewartults: 1N egative Date of Service: 05/08/24Follow Up: 1 Year From Orig inal Mammogram Procedure(s): MM tomosynthesis screening BI Accession Number(s): [id number] cc: Jeri Stewart DO EXAMINATION: MM SCREENING DIGITAL BREAST TOMOSYNTHESIS, BILATERAL CLINICAL INFORMATION: Screening. Asymptomatic. COMPARISON: Mammography: This study is compared with prior exams dating back to 2019. TECHNIQUE: Digital breast tomosynthesis is performed in both the craniocaudal and mediolateral oblique views along with computer-aided detection (CAD). Synthesized 2D images are generated from the tomosynthesis. FINDINGS: The breasts are almost entirely fatty (ACR BI-RADS breast composition Category a). There are no significant masses, abnormal calcifications, or other abnormalities. MM/MM tomosynthesis screening BI IMPRESSION: No mammographic evidence of malignancy. ASSESSMENT: BI-RADS BI-RADS 1 - Negative RECOMMENDATION: Routine annual mammography screening. 1 year F/U This examination should not preclude the clinical evaluation of a suspicious palpable abnormality. This patient's information was entered into a reminder system with a target due date for their next mammogram. Dictated By: Catrina Adan MD Signed By: <Electronically signed by Catrina Adan MD in OV> 06/03/242051 DD/ 1023 TD/TT: Facialist: us Jeri Stewart DO IMG BI PROCEDURES Edited Res ult - Final * Lipid Panel, Standard (03/31/2024 9:45 AM EDT) Triglycerides 82 <150 mg/dL [facility] Comment:Desirable Triglyceri de: less than 150 mg/dLBorderline High Triglyceride 150-199 mg/dLHigh Triglyceride: 200-499 mg/dLVery High Triglyceride: greater than or equal to 5OO mg/dL Cholesterol 125 <200 mg/dL [facility] Comment:Desirable Cholestero l: less than 200 mg/dLBorderline High Cholesterol: 200-239 mg/dLHigh Cholesterol: greater than 239 mg/dL LDL Cholesterol Calculated 58 <100 mg/dL [facility] Comment:Desirable LDL: less than 100 mg/dLNear Optimal/Above Optimal LDL: 110- 129 mg/dLBorderline High LDL: 130-159 mg/dLHigh LDL: 160-189 mg/dLVery High LDL: greater than or equal to 190 mg/dL HDL Cholesterol 51 >40 mg/dL [facility] Comment:Desirable HDL: great er than 40 mg/dL Note: This HDL assay may give artificially low results in patients with liver disease. Blood Venous blood specimen / Unknown 03/31/2024 9:45 AM EDT 03/31/2024 11:16 AM EDT us Jeri Stewart DO LAB BLOOD ORDERABLES Final R esult [facility] [address] [place] [address] [phone] * Albumin, Random Urine W/Creatinine (03/31/2024 9:15 AM EDT) Creatinine, Urine 210.45 mg/dL [facility] Microalbumin Urine 11.0 mg/L [facility] Microalbum Creatinine Ratio Ur 5.2 <30 ug/mg cr [facility] Comment:Albumin/Creatinine R atio Reference Ranges: Normal: < 30 ug/mg creatinine Microalbuminuria: 30 - 300 ug/mg creatinineClinical Albuminuria: > 300 ug/mg creatinine Urine (Urine, Random) 03/31/2024 9:15 AM EDT 03/31/2024 11:07 AM EDT Jeri Stewart DO LAB URINE ORDERABLES Final R esult Performing Organization Address [facility]/ZIP Co de Phone Number [facility] [address] [place] [phone] * Hepatitis C Antibody Reflex (05/09/2023 11:44 AM EDT) Pathologist [facility] Hepatitis C Antibody Nonreactive Nonreactive [facility] Comment:Antibodies to HCV no t detected; does not exclude early acuteHCV infection. 05/09/2023 11:4 4 AM EDT 05/09/2023 1:19 PM EDT [facility] External Provider LAB BLO OD ORDERABLES Final Result Performing Organization Address City/[facility] Co de Phone Number [facility] [address] [place] [phone] * HIV Ab/Ag (DEVORAH ZULUAGA) (05/09/2023 11:44 AM EDT) HIV AB/AG Nonreactive Nonreactive [facility] Comment:HIV-1 p24 Ag and/or HIV-1/HIV-2 Ab not detected.A test result that is nonreactive does not exclude thepossibility of exposure to or infection with HIV-1 and/orHIV-2. Nonreactive results in this assay for individualswith prior exposure to HIV-1 and/or HIV-2 may be due toantigen and antibody levels that are below the limit ofdetection of this assay.The [employer] C[employer]ial [employer] Manager HIV Ag/Ab Combo assay result andsupplemental assay results should be interpreted inconjunction with the patient's clinical presentation,history and other laboratory results. If the results areinconsistent with clinical evidence, additional testing issuggested to confirm the result. 05/09/2023 11:4 4 AM EDT 05/09/2023 1:19 PM EDT [facility] External Provider LAB BLO OD ORDERABLES Final Result [facility] [address] [place] [phone] [phone] * Hm Colonoscopy (01/20/2016 8:37 AM EDT) Historical Provider HEALTH MAINTENANCE Final Result from Last 3 Months or Most Recently Relevant to Health Maintenance Insurance [facility] C3 DENTAL-[facility] MEDICAID STAND ADULT Care Teams History Teacher Relationship Specialty Start Date End Date Jeri Stewart DO [address] [place] [address] PCP - General Family Medicine 10/29/18
--- OUTSIDE RECORDS SUMMARY | 2025-01-14 15:03 | XMS_ITS | Encounter Summary ---
Author Organization [employer] [facility] Address [address] [facility] 7t [place] [address] Care Team Providers Care Dining Room Attendant Name Role Phone Jeri Stewart DO Primary Care Provider +[phone] Encounter Details Date Type Department Care Team (Latest Contact Info) Description 06/09/2019 Abstract [facility] Dental, Provider, DDS Social History Tobacco Use Types Packs/Day Years [...] Description 01/16/2025 9:15 AM EDT Office Visit [facility] [address] [place] [address] Jeri Stewart DO [address] [place] [address] 01/16/2025 10:00 AM EDT Office Visit [facility] [address] [place] [address] Case Reilly DDS [address] [place] [address] 01/20/2025 11:00 AM EDT Office Visit [facility] [address] [place] [address] 06/16/2025 8:00 AM EDT Office Visit [facility] [address] [place] [address] Adela Llanes [address] [place], [place] [phone] documented as of this encounter Visit Diagnoses Not on filedocumented in this encounter Care Teams Dining Room Attendant Relationship Specialty Start Date End Date Jeri Stewart DO [address] [place] [address] PCP - General Family Medicine 10/29/18 documented as of this encounter
--- OUTSIDE RECORDS SUMMARY | 2025-01-14 15:03 | XMS_ITS | Encounter Summary ---
Author Organization [employer] Address 75 [facility] 7t [place] [address] Care Team Providers Care Continuous Towel Roller Name Role Phone Jeri Stewart DO Primary Care Provider + [phone] Encounter Details Date Type Department Care Team ([facility] st Contact Info) Description 01/09/2025 Population Health Risk Score [facility] (C3) Department [address] [facility] [address] [place] [phone] Provider, Population Health Generic Social History Tobacco Use Types Packs/Day Years [...] is your housing situation today? I have chariaishwarya mann 05/23/[address] you [...] t he electric, gas, oil or water [employer] threatened to shut off services in your [...] 9:15 AM EDT Office Visit [facility] [address] [place] [address] Jeri Stewart DO [address] [place] [address] 01/16/2025 10:00 AM EDT Office Visit [facility] ADULT DENTAL [address] [place] [address] Case Reilly DDS [address] [place] [address] 01/20/2025 11:00 AM EDT Office Visit [facility] MED[facility]INE [address] [place] [address] 06/16/2025 8:00 AM EDT Office Visit [facility] ADULT DENTAL [address] [place] [address] Mario Alberto, Adela [address] [place] [address] documented as of this encounter Visit Diagnoses Not on filedocumented in this encounter Additional Health Concerns Assessment Noted Time PHQ-9 Depression Total Score: 2 05/23/20 24 9:34 AM EDT documented as of this encounter Care Teams Continuous Towel Roller Relationship Specialty Start Date End Date Jeri Stewart DO [address] [place] [address] PCP - General Family Medicine 10/29/18 documented as of this encounter
--- OUTSIDE RECORDS SUMMARY | 2025-01-14 15:03 | XMS_ITS | Encounter Summary ---
Author Organization [employer] Address 75 [facility] 7t [place] [address] Care Team Providers Care Administration Clerk Name Role Phone Jeri Stewart DO Primary Care Provider + [phone] Reason for Visit * Reason Onset Date Comments Med Refill 10/23/2023 Encounter Details Date Type Department Care Team ([facility] st Contact Info) Description 10/23/2023 Telephone [facility] MED[facility]INE [address] [place] [address] Jeri Stewart DO [address] [place], [place] [phone] Med Refill Social History Tobacco Use Types [...] encounter Miscellaneous Notes * Telephone Encounter - Jeri Rush LPN - 10/23/2023 2:42 PM EST Medication was sent to [id number] on 08/02/23 #90 with 3 refills. * Telephone Encounter - Emilia Sánchez - 10/23/2023 2:10 PM EST TC from pt requesting medication refill. Medications needing refill : hydroCHLOROthiazide (HYDRODiuril) 25 MG tablet To be sent to: [facility]/pharmacy #[id number] - [address] documented in this encounter Plan of Treatment Upcoming Encounters Date Type Department Care Team (Late st Contact Info) Description 01/16/2025 9:15 AM EDT Office Visit [facility] MEDICINE [address] [place] [address] Jeri Stewart DO [address] [place] [address] 01/16/2025 10:00 AM EDT Office Visit [facility] ADULT DENTAL [address] [place] [address] Case Reilly DDS [address] [place] [address] 01/20/2025 11:00 AM EDT Office Visit [facility] MEDICINE [address] [place] [address] 06/16/2025 8:00 AM EDT Office Visit [facility] ADULT DENTAL [address] [place] [address] Gonzalo Llanesaris [address] [place] [address] documented as of this encounter Visit Diagnoses Not on filedocumented in this encounter Additional Health Concerns Assessment Noted Time PHQ-9 Depression Total Score: 14 023 10:19 AM EDT documented as of this encounter Care Teams Administration Clerk Relationship Specialty Start Date End Date Jeri Stewart DO [address] [place] [address] PCP - General Family Medicine 10/29/18 documented as of this encounter
--- OUTSIDE RECORDS SUMMARY | 2025-01-14 15:03 | XMS_ITS | Encounter Summary ---
Author Organization [employer] Address 75 [facility] 7t [place] [address] Care Team Providers Care Outreach Clinician Name Role Phone Jeri Stewart DO Primary Care Provider + [phone] Reason for Visit * Reason Comments Pre-visit Planning (Unable to reach for PVP screening, LVM) Encounter Details Date Type Department Care Team ([facility] Contact Info) Description 01/08/2025 Patient Outreach [facility] [address] [place] [address] Jeri Stewart DO [address] [place] [address] Pre-visit Planning ((Unable to reach for PVP screening, LVM)) Social History Tobacco Use Types Packs/Day Years [...] AM EDT documented as of this encounter Progress Notes * Arlette Osei - 01/08/2025 11:33 AM EDT LUCILA Chong. Placed outbound call to patient to complete pre-visit planning. No answer at this time. Patient name and were not confirmed. CC left voicemail requesting return call. Direct contact information provided. documented in this encounter Plan of Treatment Upcoming Encounters Date Type Department Care Team ([facility] st Contact Info) Description 01/16/2025 9:15 AM EDT Office Visit [facility] [address] [place] [address] Jeri Stewart DO [address] [place] [address] 01/16/2025 10:00 AM EDT Office Visit [facility] ADULT DENTAL [address] [place] [address] Case Reilly DDS [address] [place] [address] 01/20/2025 11:00 AM EDT Office Visit [facility] [address] [place] [address] 06/16/2025 8:00 AM EDT Office Visit [facility] ADULT DENTAL [address] [place] [address] Gonzalo Llanesaris [address] [place] [address] documented as of this encounter Visit Diagnoses Not on filedocumented in this encounter Additional Health Concerns Assessment Noted Time PHQ-9 Depression Total Score: 2 05/23/20 24 9:34 AM EDT documented as of this encounter Care Teams Outreach Clinician Relationship Specialty Start Date End Date Jeri Stewart DO [address] [place] [address] PCP - General Family Medicine 10/29/18 documented as of this encounter
--- OUTSIDE RECORDS SUMMARY | 2025-01-14 15:03 | XMS_ITS | Encounter Summary ---
Author Organization [employer] Address 75 [facility] 7t [place] [address] Care Team Providers Care Compound Filler Name Role Phone Jeri Stewart DO Primary Care Provider +[phone] Encounter Details Date Type Department Care Team (Late st Contact Info) Description 12/19/2022 Orders Only [facility] [address] [place], [place] [phone] Jeri Rush LPN Social History Tobacco Use [...] Description 01/16/2025 9:15 AM EDT Office Visit [facility] MEDICINE [address] [place] [address] Jeri Stewart DO [address] [place] [address] 01/16/2025 10:00 AM EDT Office Visit [facility] ADULT DENTAL [address] [place] [address] Case Reilly DDS [address] [place] [address] 01/20/2025 11:00 AM EDT Office Visit [facility] MEDICINE [address] [place] [address] 06/16/2025 8:00 AM EDT Office Visit [facility] ADULT DENTAL [address] [place], [place] [phone] Adela Llanes [address] [place] [address] documented as of this encounter Visit Diagnoses Not on filedocumented in this encounter Care Teams Compound Filler Relationship Specialty Start Date End Date Jeri Stewart DO [address] [place] [address] PCP - General Family Medicine 10/29/18 documented as of this encounter
--- OUTSIDE RECORDS SUMMARY | 2025-01-14 15:03 | XMS_ITS | Encounter Summary ---
Author Organization [employer] Address [address] [facility] [address] 7t [place] [address] Care Team Providers Care Building Tech Name Role Phone TaeJeri bautista DO Primary Care Provider + [phone] Encounter Details Date Type Department Care Team (Late st Contact Info) Description 02/07/2024 Orders Only [facility] [address] [place], [place] [phone] Provider, MD Albino Social History Tobacco Use Types Packs/Day Years [...] Description 01/16/2025 9:15 AM EDT Office Visit [facility] [address] [place] [address] Jeri Stewart DO [address] [place] [address] 01/16/2025 10:00 AM EDT Office Visit [facility] ADULT DENTAL [address] [place] [address] Case Reilly DDS [address] [place] [address] 01/20/2025 11:00 AM EDT Office Visit [facility] MED[facility] [address] [place] [address] 06/16/2025 8:00 AM EDT Office Visit [facility] ADULT DENTAL [address] [place] [address] Mario Alberto, Adela [address] [place] [address] documented as of this encounter Procedures Procedure Name Priority Date/Time Associated Diagnosis Comments HM COLONOSCOPY Routine 01/20/2016 8:37 AM EDT documented in this encounter Results * Hm Colonoscopy (01/20/2016 8:37 AM EDT) us Historical Provider HEALTH MAINTENANCE Final Result documented in this encounter Visit Diagnoses Not on filedocumented in this encounter Additional Health Concerns Assessment Noted Time PHQ-9 Depression Total Score: 14 06/13/2 023 10:19 AM EDT documented as of this encounter Care Teams Building Tech Relationship Specialty Start Date End Date Jeri Stewart DO [address] [place] [address] PCP - General Family Medicine 10/29/18 documented as of this encounter
== END 2025-01-14 13:49 | disposition home or self-care (01) ==
LOC: HO.HKAM 12:43
PROVIDERS: PCP Family Medicine; Visit Provider Internal Medicine Hypertension Specialist
DX: I12.9 Hypertensive chronic kidney disease with stage 1 through stage 4 chronic kidney disease, or unspecified chronic kidney disease (principal); N18.9 Chronic kidney disease, unspecified
CPT/HCPCS: 99214

== ENCOUNTER → 2025-01-14 12:43 | Outpatient (BNVA) | payer MEDICAID, SELFPAY | PROVIDERS: PCP Family Medicine; Visit Provider Internal Medicine Hypertension Specialist | DX: I12.9 Hypertensive chronic kidney disease with stage 1 through stage 4 chronic kidney disease, or unspecified chronic kidney disease (principal); N18.9 Chronic kidney disease, unspecified | CPT/HCPCS: 99212 ==

== ENCOUNTER 2025-05-14 09:30 | Outpatient (REF) | payer MEDICAID, SELFPAY ==
--- OUTSIDE RECORDS SUMMARY | 2025-05-14 09:47 | XMS_ITS | Encounter Summary ---
Author Organization [employer] Address 75 [facility] 7t [place] [address] Care Team Providers Care Aircraft Power Plant Assembler Name Role Phone Jeri Stewart DO Primary Care Provider + [phone] Reason for Visit * Reason Onset Date Comments Call Back Request 03/26/2025 Encounter Details Date Type Department Care Team ([facility] st Contact Info) Description 03/26/[address] [facility] [address] [place] [address] Jeri Stewart DO [address] [place] [address] Call Back Request Social History Tobacco Use Types Packs/Day Years [...] Access Q2 Not on file 06/27/2024 Comments No Sex and Gender Information Value Date Recorded Sex Assigned at Female 08/28/2022 10:15 AM EDT Legal Sex Female 10:15 AM EDT Gender Identity Female 08/28/2022 10:15 AM EDT Sexual Orientation Straight 08/28/2022 10 :15 AM EDT documented as of this encounter Miscellaneous Notes * Telephone Encounter - Tabitha Blakely RN - 03/26/2025 4:20 PM EDT TC placed to patient [phone] using [facility]# [place] [id number] regarding to below message. Patient informed RN that her PCP was going to order an medication for her. RN reviewed the chart and was unable to find a note stating what the medication is. RN informed a message will be sent to her PCP for review. PT verbalized understanding. PT to F/U PRN. * Telephone Encounter - Mode Mckay - 03/26/2025 2:22 PM EDT TC from pt requesting a call back regarding new med pt never received. Contact pt at [phone] documented in this encounter Plan of Treatment Upcoming Encounters Date Type Department Care Team (Late st Contact Info) Description 06/16/2025 8:00 AM EDT Office Visit [facility] ADULT DENTAL [address] [place] [address] Adela Llanes [address] [place] [address] 06/23/2025 11:00 AM EDT Office Visit [facility] [address] [place] [address] documented as of this encounter Visit Diagnoses Not on filedocumented in this encounter Additional Health Concerns Assessment Noted Time PHQ-9 Depression Total Score: 2 05/23/20 24 9:34 AM EDT documented as of this encounter Care Teams Aircraft Power Plant Assembler Relationship Specialty Start Date End Date Jeri Stewart DO [address] [place] [address] PCP - General Family Medicine 10/29/18 documented as of this encounter
== END 2025-05-14 09:31 | disposition home or self-care (01) ==
LOC: HO.MAMMO 09:30
PROVIDERS: PCP Family Medicine; Visit Provider Family Medicine
DX: Z12.31 Encounter for screening mammogram for malignant neoplasm of breast (principal)
CPT/HCPCS: 77063; 77067

== ENCOUNTER → 2025-05-14 10:00 | Outpatient (BNV) | payer MEDICAID, SELFPAY | PROVIDERS: PCP Family Medicine; Visit Provider Internal Medicine | DX: Z12.31 Encounter for screening mammogram for malignant neoplasm of breast (principal) | CPT/HCPCS: 77063; 77067 ==

== ENCOUNTER 2025-07-06 11:27 | Outpatient (REF) | payer MEDICAID, SELFPAY ==
--- OUTSIDE RECORDS SUMMARY | 2025-07-06 14:09 | XMS_ITS | Encounter Summary ---
Author Organization [employer] Address 75 [facility] 7t [place] [address] Care Team Providers Care Ecmo Specialist Name Role Phone Jeri Stewart DO Primary Care Provider + [phone] Reason for Visit * Reason Onset Date Comments Call Back Request 03/26/2025 Encounter Details Date Type Department Care Team ([facility] st Contact Info) Description 03/26/2025 Telephone [facility] MEDICINE [address] [place] [address] Jeri Stewart DO [address] [place] [address] Call Back Request Social History Tobacco Use [...] 4:20 PM EDT TC placed to patient [phone] using [facility]# [place] [id number] regarding to below message. Patient informed RN [...] med pt never received. Contact pt at [phone] documented in this encounter Plan of Treatment Upcoming Encounters Date Type Department Care Team (Late st Contact Info) Description 08/18/2025 9:00 AM EDT Office Visit [facility] ADULT DENTAL [address] [place], [place] [phone] Case Reilly DDS [address] [place] [address] 08/25/2025 11:00 AM EDT Office Visit [facility] MEDICINE [address] [place] [address] 12/18/2025 8:00 AM EST Office Visit [facility] ADULT DENTAL [address] [place] [address] Gonzalo Llanesaris [address] [place] [address] documented as of this encounter Visit Diagnoses Not on filedocumented in this encounter Additional Health Concerns Assessment Noted Time PHQ-9 Depression Total Score: 2 05/23/20 24 9:34 AM EDT documented as of this encounter Care Teams Ecmo Specialist Relationship Specialty Start Date End Date Jeri Stewart DO [address] [place] [address] PCP - General Family Medicine 10/29/18 documented as of this encounter
--- OUTSIDE RECORDS SUMMARY | 2025-07-06 14:09 | XMS_ITS | Encounter Summary ---
Author Organization [employer] Address 75 [facility] 7t [place] [address] Care Team Providers Care Grain Mill Products Inspector Name Role Phone Jeri Stewart DO Primary Care Provider + [phone] Reason for Visit * Reason Onset Date Comments same day cancellation 01/16/2025 Encounter Details Date Type Department Care Team ([facility] st Contact Info) Description 01/16/2025 Telephone [facility] ADULT DENTAL [address] [place] [address] Case Reilly DDS [address] [place] [address] same day cancellation Social History Tobacco Use Types Packs/Day Years [...] encounter Miscellaneous Notes * Telephone Encounter - Margot Harvey - 01/16/2025 9:56 AM EDT Patient called in to cancel appt due to sore throat. Patient informed they will receive call from office to reschedule after waiting period documented in this encounter Plan of Treatment Upcoming Encounters Date Type Department Care Team (Late st Contact Info) Description 08/18/2025 9:00 AM EDT Office Visit [facility] ADULT DENTAL [address] [place] [address] Case Reilly DDS [address] [place] [address] 08/25/2025 11:00 AM EDT Office Visit [facility] MEDICINE [address] [place] [address] 12/18/2025 8:00 AM EST Office Visit [facility] ADULT DENTAL [address] [place] [address] Adela Llanes [address] [place] [address] documented as of this encounter Visit Diagnoses Not on filedocumented in this encounter Additional Health Concerns Assessment Noted Time PHQ-9 Depression Total Score: 2 05/23/20 24 9:34 AM EDT documented as of this encounter Care Teams Grain Mill Products Inspector Relationship Specialty Start Date End Date Jeri Stewart DO [address] [place] [address] PCP - General Family Medicine 10/29/18 documented as of this encounter
--- OUTSIDE RECORDS SUMMARY | 2025-07-06 14:09 | XMS_ITS | Encounter Summary ---
Author Organization [employer] Address 75 [facility] 7t [place] [address] Care Team Providers Care Clinical Transformation Specialist Name Role Phone Jeri Stewart DO Primary Care Provider + [phone] Encounter Details Date Type Department Care Team (Late st Contact Info) Description 09/07/2023 Abstract [facility] ADULT DENTAL [address] [place] [address] Nelda Portillo DDS [address] [place] [address] Social History Tobacco Use Types Packs/Day Years [...] Description 08/18/2025 9:00 AM EDT Office Visit [facility] ADULT DENTAL [address] [place] [address] Case Reilly DDS [address] [place] [address] 08/25/2025 11:00 AM EDT Office Visit [facility] MEDICINE [address] [place] [address] 12/18/2025 8:00 AM EST Office Visit [facility] ADULT DENTAL [address] [place] [address] Mario Alberto, Adela [address] [place] [address] documented as of this encounter Visit Diagnoses Not on filedocumented in this encounter Additional Health Concerns Assessment Noted Time PHQ-9 Depression Total Score: 14 023 10:19 AM EDT documented as of this encounter Care Teams Clinical Transformation Specialist Relationship Specialty Start Date End Date Jeri Stewart DO [address] [place] [address] PCP - General Family Medicine 10/29/18 documented as of this encounter
--- OUTSIDE RECORDS SUMMARY | 2025-07-06 14:09 | XMS_ITS | Encounter Summary ---
Author Organization [employer] Address 75 [facility] 7t [place] [address] Care Team Providers Care Wet Sander Name Role Phone Jeri Stewart DO Primary Care Provider + [phone] Reason for Visit * Reason Onset Date Comments Med Refill 10/23/2023 Encounter Details Date Type Department Care Team ([facility] st Contact Info) Description 10/23/2023 Telephone [facility] MEDICINE [address] [place] [address] Jeri Stewart DO [address] [place] [address] Med Refill Social History Tobacco Use Types [...] 2:42 PM EST Medication was sent to [facility] #[id number] on 08/02/23 #90 with 3 refills. * Telephone Encounter - Emilia Sánchez - 10/23/2023 2:10 PM EST TC from pt requesting medication refill. Medications needing refill : hydroCHLOROthiazide (HYDRODiuril) 25 MG tablet To be sent to: [facility]/pharmacy #[id number] - [address] documented in this encounter Plan of Treatment Upcoming Encounters Date Type Department Care Team (Late st Contact Info) Description 08/18/2025 9:00 AM EDT Office Visit [facility] ADULT DENTAL [address] [place] [address] Case Reilly DDS [address] [place] [address] 08/25/2025 11:00 AM EDT Office Visit [facility] MEDICINE [address] [place] [address] 12/18/2025 8:00 AM EST Office Visit [facility] ADULT DENTAL [address] [place] [address] Adela Llanes [address] [place] [address] documented as of this encounter Visit Diagnoses Not on filedocumented in this encounter Additional Health Concerns Assessment Noted Time PHQ-9 Depression Total Score: 14 04/10/ 023 10:19 AM EDT documented as of this encounter Care Teams Wet Sander Relationship Specialty Start Date End Date Jeri Stewart DO [address] [place] [address] PCP - General Family Medicine 10/29/18 documented as of this encounter
--- OUTSIDE RECORDS SUMMARY | 2025-07-06 14:09 | XMS_ITS | Encounter Summary ---
Author Organization [employer] Address [address] [facility] [address] 7t [place] [address] Care Team Providers Care Diversity Manager Name Role Phone Jeri Stewart DO Primary Care Provider + [phone] Encounter Details Date Type Department Care Team (Late st Contact Info) Description 02/07/2024 Orders Only [facility] MEDICINE [address] [place] [address] Provider, MD Albino Social History Tobacco Use [...] Description 08/18/2025 9:00 AM EDT Office Visit [facility] ADULT DENTAL [address] [place] [address] Case Reilly DDS [address] [place] [address] 08/25/2025 11:00 AM EDT Office Visit [facility] MEDICINE [address] [place] [address] 12/18/2025 8:00 AM EST Office Visit [facility] ADULT DENTAL [address] [place] [address] Mario Alberto, Adela [address] [place] [address] documented as of this encounter Procedures Procedure Name Priority Date/Time Associated Diagnosis Comments HM COLONOSCOPY Routine 01/20/2016 8:37 AM EDT documented in this encounter Results * Hm Colonoscopy (01/20/2016 8:37 AM EDT) us Historical Provider HEALTH MAINTENANCE Final Result documented in this encounter Visit Diagnoses Not on filedocumented in this encounter Additional Health Concerns Assessment Noted Time PHQ-9 Depression Total Score: 14 0613/2 023 10:19 AM EDT documented as of this encounter Care Teams Diversity Manager Relationship Specialty Start Date End Date Jeri Stewart DO [address] [place] [address] PCP - General Family Medicine 10/29/18 documented as of this encounter
--- OUTSIDE RECORDS SUMMARY | 2025-07-06 14:10 | XMS_ITS | Encounter Summary ---
Author Organization [employer] Address [address] [facility] [address] [place] [address] Care Team Providers Care Front Desk Attendant Name Role Phone TerryJeri Primary Care Provider [phone] Encounter Details Date Type Department Care Team (Late st Contact Info) Description 03/07/2023 Orders Only [facility] MED & PEDS [address] [place] [address] Jeri Rush LPN Social History Tobacco Use [...] Description 08/18/2025 9:00 AM EDT Office Visit [facility] ADULT DENTAL [address] [place] [address] Case Reilly, DDS [address] [place] [address] 08/25/2025 11:00 AM EDT Office Visit [facility] MEDICINE [address] [place] [address] 12/18/2025 8:00 AM EST Office Visit [facility] ADULT DENTAL [address] [place] [address] Mario AlbertoAdela grove [address] [place] [address] documented as of this encounter Visit Diagnoses Not on filedocumented in this encounter Care Teams Front Desk Attendant Relationship Specialty Start Date End Date Jeri Stewart DO [address] [place] [id number] PCP - General Family Medicine 10/29/18 documented as of this encounter
--- OUTSIDE RECORDS SUMMARY | 2025-07-06 14:10 | XMS_ITS | Encounter Summary ---
Author Organization [employer] Address [address] [facility] [address] [place] [address] Care Team Providers Care Supervisor Receiving And Processing Name Role Phone Jeri Stewart DO Primary Care Provider + [phone] Encounter Details Date Type Department Care Team (Late st Contact Info) Description 07/08/[address] [facility] ADULT DENTAL [address] [place] [address] Case Reilly DDS [address] [place] [address] Social History Tobacco Use Types Packs/Day Years [...] Description 08/18/2025 9:00 AM EDT Office Visit [facility] ADULT DENTAL [address] [place] [address] Case Reilly DDS [address] [place] [address] 08/25/2025 11:00 AM EDT Office Visit [facility] MEDICINE [address] [place] [address] 12/18/2025 8:00 AM EST Office Visit [facility] ADULT DENTAL [address] [place] [address] Adeal Llanes [address] [place] [address] documented as of this encounter Visit Diagnoses Not on filedocumented in this encounter Additional Health Concerns Assessment Noted Time PHQ-9 Depression Total Score: 2 05/23/20 24 9:34 AM EDT documented as of this encounter Care Teams Supervisor Receiving And Processing Relationship Specialty Start Date End Date Jeri Stewart DO [address] [place] [id number] PCP - General Family Medicine 10/29/18 documented as of this encounter
--- OUTSIDE RECORDS SUMMARY | 2025-07-06 14:10 | XMS_ITS | Encounter Summary ---
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 Medications needing refill : oxyCODONE-acetaminophen (Percocet) 5-325 MG tablet To be sent to: [facility]/pharmacy [address] [place] [address] documented in this encounter Plan of Treatment Upcoming Encounters Date Type Department Care Team (Late st Contact Info) Description 08/18/2025 9:00 AM EDT Office Visit [facility] ADULT DENTAL [address] [place] [address] Case Reilly DDS [address] [place] [address] 08/25/2025 11:00 AM EDT Office Visit [facility] MEDICINE [address] [place] [address] 12/18/2025 8:00 AM EST Office Visit [facility] ADULT DENTAL [address] [place] [address] Adela Llanes [address] [place] [address] documented as of this encounter Visit Diagnoses Diagnosis Chronic bilateral low back pain, unspecified whether sciatica present documented in this encounter Additional Health Concerns Assessment Noted Time PHQ-9 Depression Total Score: 2 05/23/20 24 9:34 AM EDT documented as of this encounter Care Teams Spline Rolling Machine Job Setter Relationship Specialty Start Date End Date Jeri Stewart DO [address] [place] [address] PCP - General Family Medicine 10/29/18 documented as of this encounter
--- OUTSIDE RECORDS SUMMARY | 2025-07-06 14:10 | XMS_ITS | Clinical Summary ---
Author Organization [employer] Address [address] [facility] [address] [place] [address] Care Team Providers Care Barrel Cooper Name Role Phone Jeri Stewart DO Primary Care Provider + [phone] Allergies No known active allergies Medications * This document contains information received from the source organization and may not represent a complete record from that organization. cetirizine (ZyrTEC) 10 MG tablet Take 10 mg by mouth in the morning. 022 Active hydrOXYzine pamoate (Vistaril) 50 MG capsule TAKE 1 CAPSULE BY MOUTH EVERY DAY AT BEDTIME NEEDED 023 Active QUEtiapine (SEROquel) 50 MG tablet TAKE 1 TABLET BY MOUTH EVERY EVENING TAKE WITH QUETIAPINE 100 MG= 150 MG AT BEDTIME 023 Active QUEtiapine (SEROquel) 100 MG tablet TAKE 1 TABLET BY MOUTH EVERY EVENING TAKE WITH QUETIAPINE 50 MG 023 Active sertraline (Zoloft) 100 MG tablet Take 100 mg by mouth in the morning. 023 Active Blood Glucose Monitoring Suppl (FreeStyle Lite) w/Device kit 1 each 2 times daily. 1 kit 023 Active naproxen (Naprosyn) 500 MG tablet TAKE 1 TABLET BY MOUTH TWICE A DAY NEEDED FOR PAIN 60 tablet 023 Active FREESTYLE LITE test stripIndication s:Type 2 diabetes mellitus with diabetic polyneuropathy, without long-term current use of insulin ([facility]) USE TO CHECK BLOOD SUGAR TWICE A DAY 100 strip 11 024 Active lidocaine (Lidoderm) 5 % patch Apply 1-2 patches topically if needed each day for mild pain. Remove & discard patch within 12 hours or as directed by MD. 60 patch 3 024 2024 Active aspirin (Aspirin Low Dose) 81 MG EC tablet Take 1 tablet (81 mg) by mouth Once per day. 90 tablet 3 Active hydroCHLOROthia zide (HYDRODiuril) 25 MG tablet Take 1 tablet (25 mg) by mouth Once per day. 90 tablet 3 Active pravastatin (Pravachol) 80 MG tablet Take 1 tablet (80 mg) by mouth at bedtime. 90 tablet 3 Active D3 50 MCG (2000 UT) tablet TAKE 1 TABLET BY MOUTH EVERY DAY 90 tablet 3 Active propranolol LA (Inderal LA) 120 MG 24 hr capsuleIndicati ons:Primary hypertension TAKE 1 CAPSULE BY MOUTH EVERY DAY 90 capsule 3 Active baclofen (Lioresal) 10 MG tabletIndicatio ns:Muscle spasm TAKE 1 TABLET BY MOUTH THREE TIMES A DAY NEEDED FOR MUSCLE SPASM 60 tablet 5 Active gabapentin (Neurontin) 300 MG capsule Take 1 capsule (300 mg) by mouth 3 times daily. 90 capsule 3 025 2025 Active empagliflozin (Jardiance) 10 MG Take 1 tablet (10 mg) by mouth Once per day. 90 tablet 3 025 2025 Active metFORMIN, OSM, (Fortamet) 500 MG 24 hr tablet Take 1 tablet (500 mg) by mouth with breakfast and with evening meal. Do not crush, chew, or split. 180 tablet 3 025 2025 Active Trulicity 3 MG/0.5ML solution auto-injector INJECT 3 MG SUBCUTANEOUSLY WEEKLY Active lisinopril 30 MG tablet Take 1 tablet by mouth Once per day. Active oxyCODONE-aceta minophen (Percocet) 5-325 MG tabletIndicatio ns:Chronic bilateral low back pain, unspecified whether sciatica present Take 1 tablet by mouth every 6 (six) hours if needed for severe pain for up to 28 days. 112 tablet 025 2024 Active oxyCODONE-aceta minophen (Percocet) 5-325 MG tabletIndicatio ns:Chronic bilateral low back pain, unspecified whether sciatica present Take 1 tablet by mouth every 6 (six) hours if needed for severe pain for up to 28 days. 112 tablet 025 2024 Discontinued(R eorder (will not trigger notification to Pharmacy)) Active Problems Problem Noted Date Diagnosed Date Gingival bleeding 06/16/2025 Tipped teeth 12/16/2024 Acute gingival inflammation 12/16/2024 Periodontal disease 12/16/2024 Dental plaque 12/16/2024 FDC current use of opiate analgesic 2023 Overview (11/27/2024): Dx: DDD, lumbar; chronic knee pain Tx: Percocet 5/325mg q 6 hours Last [employer]ANDLE MOLDER MACH[employer] agreement: 11/25/24 Tier II (CANDLE MOLDER MACHINE visit Q3 months) Assessment & Plan (06/23/2025 1:57 PM EDT): Timeline: - 11/25/24: Group visit. Utox/pill count as expected. Agreement signed. - 01/20/25: Group visit. Utox wnl, pill count 6 less than expected - 02/17/25: Group visit. Utox/pill count as expected - 04/21/25: Group visit. Utox/pill count as expected - 06/23/25: Group visit. Utox/pill count as expected Assessment & Plan (04/21/2025 2:44 PM EDT): Timeline: - 11/25/24: Group visit. Utox/pill count as expected. Agreement signed. - 01/20/25: Group visit. Utox wnl, pill count 6 less than expected - 02/17/25: Group visit. Utox/pill count as expected - 04/21/25: Group visit. Utox/pill count as expected Assessment & Plan (01/20/2025 8:40 PM EDT): Timeline: - 11/25/24: Group visit. Utox/pill count as expected. Agreement signed. - 01/20/25: Group visit. Utox wnl, pill count 6 less than expected Assessment & Plan (11/27/2024 4:38 PM EST): Timeline: - 11/25/24: Group visit. Utox/pill count as expected. Agreement signed. Chronic knee pain 05/28/2023 Osteoarthritis 05/28/2023 Chronic low back pain 08/11/2015 Degenerative disc disease, lumbar 08/11/2015 Assessment & Plan (06/23/2025 1:56 PM EDT): -Good engagement and participation with Group Medical Visit model -Encouraged multifactorial approach to pain control including pharm and non- pharm modalities -Utox/pill count as expected Assessment & Plan (04/21/2025 2:44 PM EDT): -Good engagement and participation with Group Medical Visit model -Encouraged multifactorial approach to pain control including pharm and non- pharm modalities -Utox/pill count as expected Assessment & Plan (01/20/2025 8:39 PM EDT): -Good engagement and participation with Group Medical Visit model -Encouraged multifactorial approach to pain control including pharm and non- pharm modalities Assessment & Plan (11/27/2024 4:36 PM EST): [...] count not performed, as last visit with [employer]LE M[employer] MACHINE 07/01/2024 and all was normal Assessment & Plan (07/08/2024 2:40 PM EDT): -Good engagement and participation with Group Medical Visit model, today was first visit. -Encouraged multifactorial approach to pain control including pharm and non- pharm modalities -UTOX and pill count not performed, as last visit with CANDLE MOLDER MACHINE 07/01/2024 and all was normal Essential hypertension 08/11/2015 Hyperlipidemia 08/11/2015 Chronic migraine 08/11/2015 BMI 50.0-59.9, adult 08/11/2015 Major depression, recurrent, chronic 08/11/2015 Chronic shoulder pain 08/11/2015 Type 2 diabetes mellitus 08/11/2015 Encounters * This document contains information received from the source organization and may not represent a complete record from that organization. 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 06/23/2025 Travel 06/16/2025 8:00 AM EDT Office Visit [facility] [address] [place] [address] Mario AlbertoAdela Dental plaque (Primary Dx); Acute gingival inflammation; Periodontal disease; Gingival bleeding 06/02/2025 Refill [facility] [address] [place] [address] Jeri Stewart DO Chronic bilateral low back pain, unspecified whether sciatica present 05/27/2025 9:30 AM EDT Office Visit [facility] [address] [place] [address] Octavia Betancourt, OD Presbyopia (Primary Dx) 04/30/2025 Refill [facility] [address] [place] [address] Jeri Stewart DO Chronic bilateral low back pain, unspecified whether sciatica present 04/29/2025 9:30 AM EDT Office Visit [facility] [address] [place] [address] Serafin, Octavia, OD Diabetes type 2, no ocular involvement ([facility]) (Primary Dx); Early cataracts, bilateral; Presbyopia 04/29/2025 Travel 04/21/2025 11:00 AM EDT Office Visit [facility] [address] [place] [address] Olena Trujillo FNP Degeneration of intervertebral disc of lumbar region with discogenic back pain and lower extremity pain (Primary Dx); FDC current use of opiate analgesic 04/21/2025 Telephone [facility] [address] [place] [address] Nora Kurtz, LEANN BPI Scoring 04/21/2025 Travel 04/06/2025 Telephone [facility] [address] [place] [address] Alexa Fisher, LEANN from Last 3 Months Immunizations Immunization Administration Dates Next Due Hep B, adult 02/01/2015,10/09/2014,08/03/2014 Influenza injectable quadriv alent IIV4 with preservative 07/24/2017,11/01/2016,08/11/2015 Influenza injectable quadriv alent preservative free 09/12/2023,09/14/2022,09/08/2021,09/01,07/30/2019,12/04/2018 Influenza, IIV3, injectable 08/03/2014, 1,07/07/2010 Influenza, Split (incl. maura fied surface antigen) 09/05/2013,09/04/2012 Influenza, seasonal, injecta ble, preservative free 07/09/2024 Pfizer Covid-19 Vaccine 12+ 01/16/2025, 3 Pneumococcal Conjugate PCV 20 04/10/2023 Pneumococcal Polysaccharide [...] Sign Reading Time Taken Comments Blood Pressure 126/70 06/16/2025 8:06 AM EDT Pulse 65 01/16/2025 9:13 AM EDT Temperature 36.1 C (96.9 F) 01/16/2025 9:13 AM EDT Respiratory Rate 20 01/16/2025 9:13 AM EDT Oxygen Saturation 98% 01/16/2025 9:13 AM EDT Inhaled Oxygen Concentration - - Weight 154 kg (340 lb) 01/16/2025 9:13 AM EDT Height 167.6 cm (5' 6 ) 01/16/2025 9:13 AM EDT Body Mass Index 54.88 01/16/2025 9:13 AM EDT Plan of Treatment Upcoming Encounters Date Type Department Care Team (Late st Contact Info) Description 08/18/2025 9:00 AM EDT Office Visit [facility] [address] [place] [address] Case Reilly DDS [address] [place] [address] 08/25/2025 11:00 AM EDT Office Visit [facility] [address] [place] [address] 12/18/2025 8:00 AM EST Office Visit [facility] [address] [place] [address] Gonzalo Llanesaris [address] [place] [address] Health Maintenance Due Date Last Done Comments CT Colonography 1965 FIT DNA/Cologuard 1965 FIT 1965 FOBT 1965 Sigmoidoscopy 1965 Disability Screening 1965 Diabetes: Foot Exam 1975 Zoster Vaccines (1 of 2) 2015 Colonoscopy 01/19/2021 01/20/2016 Colorectal Cancer Screening 01/19/2021 Diabetes: Urine Protein Screening 03/31/2025 03/31/2024, 05/09/2023, 12/22/2021, Additional history exists Lipid Panel 03/31/2025 03/31/2024, 0711/2022, 10/21/2020 Depression Screening 05/23/2025 05/23/2024, 05/23/20 SDOH Screening 05/23/2025 05/23/2024 Dental Oral Exam 06/16/2025 12/16/2024, , 07/18/2023, Additional history exists RSV Patients and Patients Aged 60 years or older (1 - Risk 60-74 years 1-dose series) 2025 Influenza Vaccine (#1) 2025 , 09/12/2023, 09/14/2022, Additional history exists Diabetes: Hemoglobin A1C 07/19/2025 025, 07/09/2024, 03/31/2024, Additional history exists Dental X-Ray: Bitewings 12/17/2025 12/16/19 25, 07/18/2023, 08/23/2020, Additional history exists Dental Prophylaxis 12/18/2025 06/16/2025, 0 12/16/2024, 03/13/2024, Additional history exists Alcohol/Substance Use Screening 01/16/2026 01/16/2025 Mammogram 05/14/2026 05/14/2025, 04/28, 04/26/2023, Additional history exists Tobacco Screening 06/16/2026 06/16/2025 Dental X-Ray: Full Mouth 07/19/2026 023, 06/09/2019, 02/02/2014 Eye Exam 04/29/2027 04/29/2025, 070 11/2024, 04/29/2025, Additional history exists Cervical Cancer Screening 05/23/2027 Pap Smear 05/23/2027 05/23/2024, 05/13/2021 HPV/Cotest 05/23/2029 05/23/2024, 04/28, 10/19/2017 DTaP/Tdap/Td Vaccines (3 - Td or Tdap) 07/09/2034 07/09/2024, 08/03/2014, 08/25/2008 Hepatitis B Vaccines Completed 02/01/2015, 10/09/2014, 08/03/2014 Pneumococcal Vaccine: 50+ Years Completed 04/10/2023, 05/25/2010 HIV Screening Completed 05/09/2023, 10/21/2020 Hepatitis C Screening Completed 05/09/2023, 020 COVID-19 Vaccine Completed 01/16/2025, , 09/14/2022, Additional history exists HIB Vaccines [...] patient's age to complete this topic Meningococcal B Vaccine Aged Out No l onger eligible based on patient's age to complete [...] Procedure Name Priority Date/Time Associated Diagnosis Comments POCT ESTHER-14 URINE DRUG SCREEN Routine 06/23/2025 11:25 AM EDT Degeneration of intervertebral disc of lumbar region with discogenic back pain and lower extremity pain FDC current use of opiate analgesic PROPHYLAXIS - ADULT Routine 06/16/2025 8 :00 AM EDT Dental plaque Acute gingival inflammation Periodontal disease Gingival bleeding ORAL HYGIENE INSTRUCTIONS Routine 06/16/2025 8:00 AM EDT Dental plaque Acute gingival inflammation Periodontal disease Gingival bleeding CASE PRESENTATION, DETAILED AND EXTENSIVE TREATMENT PLANNING Routine 06/16/2025 8:00 AM EDT Dental plaque Acute gingival inflammation Periodontal disease Gingival bleeding BI MAMMOGRAM SCREENING TOMOSYNTHESIS BILATERAL Routine 05/14/2025 9:45 AM EDT POCT ESTHER-14 URINE DRUG SCREEN Routine 04/21/2025 1:36 PM EDT 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) BITEWINGS - 4 RADIOGRAPHIC IMAGES Routine 12/16/2024 9:00 AM EST Tipped teeth Periodontal disease Acute gingival inflammation Dental plaque PERIODIC ORAL EVALUATION - ESTABLISHED PATIENT Routine 12/16/2024 9:00 AM EST THINPREP IMAGING PAP AND HPV MRNA E6/E7 WITH REFLEX TO HPV 16,18/45 Routine 05/23/2024 10:07 AM EDT LIPID PANEL, STANDARD Routine 03/31/2024 9:45 AM EDT Type 2 diabetes mellitus with diabetic polyneuropathy, without long-term current use of insulin ([facility]) Essential hypertension Other hyperlipidemia Major depression, recurrent, [...] Recently Relevant to Health Maintenance Results * (ABNORMAL) POCT ESTHER-14 Urine Drug Screen (06/23/2025 11:25 AM EDT) Only the most recent of2 resultswithin the time period is included. THC Negative Negative Cocaine Screen, Urine Negative Negative Opiate Screen, Urine Negative Negative Methamphetamine Screen Urine Negative Negative Amphetamine Screen, Urine Negative Negative Benzodiazepines Screen, Urine Negative Negative Barbiturate Screen, Urine Negative Negative Methadone Screen, Urine Negative Negative Buprenophine Screen, Urine Negative Negative TCA, Urine Negative Negative MDMA Urine Negative Negative ng/mL Oxycodone Screen, Urine Positive(A) Negative Phencyclidine (PCP), Urine Negative Negative Propoxyphene, Urine Negative Negative Fentanyl, Urine Negative Negative Urine Urine specimen obtained by clean catch procedure / Unknown 06/23/2025 11:25 AM EDT Narrative Alexa Fisher RN - 06/23/2025 11:25 AM EDT .UTOX cup Lot#[id number] Exp. 08/04/26 Internal Pass Control Olena Trujillo MASTICATOR POINT OF CARE TEST ENTER/EDIT ORDERABLES Final Result * BI Mammogram Screening Tomosynthesis Bilateral (05/14/2025 9:45 AM EDT) Anatomical Region Laterality Modality Breast Bilateral Mammography 05/14/2025 9:45 AM EDT Narrative 05/25/2025 10:42 AM EDT [facility] [address] [place], [place] [address] Mammography Report Signed Patient: Judi Lobato MR#: [id number] : 1965 Acct:[id number] Age/Sex: 59 / F ADM Date: 05/14/25 Loc: HO.MAMMO Attending Dr: Jeri Stewart DO Ordering Physician: Jeri Stewart DO Results: 1N egative Date of Service: 05/14/25 Follow Up: 1 Year From [facility] Mammogram Procedure(s): MM tomosynthesis screening BI Accession Number(s): [id number] cc: Jeri Stewart DO EXAMINATION: MM SCREENING DIGITAL BREAST TOMOSYNTHESIS, BILATERAL CLINICAL INFORMATION: Screening. Asymptomatic. COMPARISON: Mammography: Comparison is made with available priors TECHNIQUE: Digital breast mammography with tomosynthesis is performed in both the craniocaudal and mediolateral oblique views along with computer-aided detection (CAD). FINDINGS: There are scattered areas of fibroglandular density (ACR BI-RADS breast composition Category b). There are no significant masses, abnormal calcifications, [...] target due date for their next mammogram. Electronically signed by: Ramya Johnson DO 05/25/2025 10:39 AM EDT Dictated By: Ramya Johnson DO Signed By: <Electronically signed by Ramya Johnson DO in OV> 05/25/25 1039 DD/ 0945 TD/TT: 05/14/25 1004 Commercial Painter: Procedure Note Donotuseinterpreter, Image - 05/25/2025 Aida [facility] [address] [place], [place] [address] Mammography Report Signed Patient: Judi LobatoMR#: [id number] : 1965Acct:[id number] Age/Sex: 59 / FADM Date: 05/14/25 Loc: HO.MAMMO Attending Dr: Jeri Stewart DO Ordering Physician: Jeri Stewartults: 1N egative Date of Service: 05/14/25Follow Up: 1 Year From Orig inal Mammogram Procedure(s): MM tomosynthesis screening BI Accession Number(s): [id number] cc: Jeri Stewart DO EXAMINATION: MM SCREENING DIGITAL BREAST TOMOSYNTHESIS, BILATERAL CLINICAL INFORMATION: Screening. Asymptomatic. COMPARISON: Mammography: Comparison is made with available priors TECHNIQUE: Digital breast mammography with tomosynthesis is performed in both the craniocaudal and mediolateral oblique views along with computer-aided detection (CAD). FINDINGS: There are scattered areas of fibroglandular density (ACR BI-RADS breast composition Category b). There are no significant masses, abnormal calcifications, [...] target due date for their next mammogram. Electronically signed by: Ramya Johnson DO 05/25/2025 10:39 AM EDT Dictated By: Ramya Johnson DO Signed By: <Electronically signed by Ramya Johnson DO in OV> 05/25/25 1039 DD/ 0945 TD/TT: 05/14/25 1004 Commercial Painter: Jeri Stewart DO IMG BI PROCEDURES Final Resu lt * POCT HGB A1C (01/16/2025 9:19 AM EDT) Hemoglobin A1C 5.9 4.0 - 6.0 % QC Media Lot # [id number] Lot# Expiration Date ,692 Blood 01/16/2025 9:19 AM EDT Jeri Stewart DO POINT OF CARE TEST ENTER/DIANA T ORDERABLES Final Result * ThinPrep Imaging Pap and HPV mRNA E6/E7 with Reflex to HPV 16,18/45 (05/23/2024 10:07 AM EDT) HPV 16 RNA [facility] HPV 18/45 RNA [facility] HPV nRNA E6/E7 Not Detected Not Detected [facility] Comment:Methodology: Transcr iption-Mediated AmplificationThis assay detects E6/E7 viral messenger RNA (mRNA) from 14high-risk HPV types (16,18,31,33,35,39,45,51,52,56,58,59,66,68).Cervical sources are required for HPV testing.If a vaginal source from a patient who has had atotal hysterectomy with removal of cervix wassubmitted, please contact the testing laboratoryfor alternative testing options.For additional information, please refer [email or web address]/faq/GZF134j8(This link if provided for information/educational purposes only.)THIS TEST WAS PERFORMED AT:[facility] [place] [phone] NEVAREZ MD SOURCE: SEE NOTE [facility] Comment:Cervix Report Status: [facility] Clinical Information: SEE NOTE [facility] Comment:None given LMP: SEE NOTE [facility] Comment:NONE GIVEN Prev. PAP: SEE NOTE [facility] Comment:NONE GIVEN Prev. BX: SEE NOTE [facility] Comment:NONE GIVEN Statement Of Adequacy: SEE NOTE [facility] Comment:Satisfactory for niki luation.Endocervical/transformation zone componentpresent. General Categorization: [facility] Interpretation/Result: SEE NOTE [facility] Comment:Cytology Results: Ne gative for intraepitheliallesion or malignancy. Cytology Comment SEE NOTE [facility] Comment:This Pap test has be en evaluated with computerassisted technology. Insurance Sales Producer: SEE NOTE [facility] Comment:MPG, CT(ASCP)CT scre ening location: [place] [address] Review Insurance Sales Producer: [facility] Pathologist [facility] PAP Infection [facility] See Note SEE NOTE [facility] Comment:EXPLANATORY NOTE:The Pap is [...] AM EDT 05/23/2024 4:03 PM EDT Narrative [facility] - 05/27/2024 3:10 PM EDT SEE SCANNED RESULTS IN EMRRCERVIX us Jeri Stewart DO LAB PATHOLOGY ORDERABLES Fin al Result [facility] [address] [place] [phone] * Lipid Panel, Standard (03/31/2024 9:45 AM EDT) Triglycerides 82 <150 mg/dL [facility] Comment:Desirable Triglyceri de: less than 150 mg/dLBorderline High Triglyceride 150-199 mg/dLHigh Triglyceride: 200-499 mg/dLVery High Triglyceride: greater than or equal to 5OO mg/dL Cholesterol 125 <200 mg/dL [facility] Comment:Desirable Cholestero l: less than 200 mg/dLBorderline High Cholesterol: 200-239 mg/dLHigh Cholesterol: greater than 239 mg/dL LDL Cholesterol Calculated 58 <100 mg/dL [facility] Comment:Desirable LDL: less than 100 mg/dLNear Optimal/Above Optimal LDL: 110- 129 mg/dLBorderline High LDL: 130-159 mg/dLHigh LDL: 160-189 mg/dLVery High LDL: greater than or equal to 190 mg/dL HDL Cholesterol 51 >40 mg/dL [facility] Comment:Desirable HDL: great er than 40 mg/dL Note: This HDL assay may give artificially low results in patients with liver disease. Blood Venous blood specimen / Unknown 03/31/2024 9:45 AM EDT 03/31/2024 11:16 AM EDT us Jeri Stewart DO LAB BLOOD ORDERABLES Final R esult Performing Organization Address [facility] Co de Phone Number [facility] [address] [place] [phone] * Albumin, Random Urine W/Creatinine (03/31/2024 9:15 AM EDT) Creatinine, Urine 210.45 mg/dL [facility] Microalbumin Urine 11.0 mg/L [facility] Microalbum Creatinine Ratio Ur 5.2 <30 ug/mg cr [facility] Comment:Albumin/Creatinine R atio Reference Ranges: Normal: < 30 ug/mg creatinine Microalbuminuria: 30 - 300 ug/mg creatinineClinical Albuminuria: > 300 ug/mg creatinine Urine (Urine, Random) 03/31/2024 9:15 AM EDT 03/31/2024 11:07 AM EDT us Jeri Stewart DO LAB URINE ORDERABLES Final R esult Performing Organization Address [facility]/ZIP Co de Phone Number [facility] [address] [place] [phone] * Hepatitis C Antibody Reflex (05/09/2023 11:44 AM EDT) Hepatitis C Antibody Nonreactive Nonreactive [facility] Comment:Antibodies to HCV no t detected; does not exclude early acuteHCV infection. 05/09/2023 11:4 4 AM EDT 05/09/2023 1:19 PM EDT [facility] External Provider LAB BLO OD ORDERABLES Final Result Performing Organization Address [facility]/ZIP Co de Phone Number [facility] [address] [place] [phone] * HIV Ab/Ag ([facility]) (05/09/2023 11:44 AM EDT) HIV AB/AG Nonreactive Nonreactive [facility] Comment:HIV-1 p24 Ag and/or HIV-1/HIV-2 Ab not detected.A test result that is nonreactive does not exclude thepossibility of exposure to or infection with HIV-1 and/orHIV-2. Nonreactive results in this assay for individualswith prior exposure to HIV-1 and/or HIV-2 may be due toantigen and antibody levels that are below the limit ofdetection of this assay.The [employer] HIV Ag/Ab Combo assay result andsupplemental assay results should be interpreted inconjunction with the patient's clinical presentation,history and other laboratory results. If the results areinconsistent with clinical evidence, additional testing issuggested to confirm the result. 05/09/2023 11:4 4 AM EDT 05/09/2023 1:19 PM EDT [facility] External Provider LAB BLO OD ORDERABLES Final Result Performing Organization Address [facility]/ZIP Co de Phone Number [facility] [address] [place] [phone] [phone] * Hm Colonoscopy (01/20/2016 8:37 AM EDT) Historical Provider HEALTH MAINTENANCE Final Result from Last 3 Months or Most Recently Relevant to Health Maintenance Insurance [facility] C3 Care Teams Barrel Cooper Relationship Specialty Start Date End Date Jeri Stewart DO [address] [place] [id number] PCP - General Family Medicine 10/29/18
--- OUTSIDE RECORDS SUMMARY | 2025-07-06 14:10 | XMS_ITS | Encounter Summary ---
Author Organization [employer] Address [address] [facility] [address] [place] [address] Care Team Providers Care Pinion Sorter Name Role Phone Jeri Stewart DO Primary Care Provider + [phone] Encounter Details Date Type Department Care Team (Latest Contact Info) Description 06/09/2019 Abstract [facility] CONVERSIONS Dental, Provider, DDS Social History Tobacco [...] Description 08/18/2025 9:00 AM EDT Office Visit [facility] ADULT DENTAL [address] [place] [address] Case Reilly DDS [address] [place] [address] 08/25/2025 11:00 AM EDT Office Visit [facility] MEDICINE [address] [place] [address] 12/18/2025 8:00 AM EST Office Visit [facility] ADULT DENTAL [address] [place] [address] Gonzalo Llanesaris [address] [place] [address] documented as of this encounter Visit Diagnoses Not on filedocumented in this encounter Care Teams Pinion Sorter Relationship Specialty Start Date End Date Jeri Stewart DO [address] [place] [address] PCP - General Family Medicine 10/29/18 documented as of this encounter
--- OUTSIDE RECORDS SUMMARY | 2025-07-06 14:10 | XMS_ITS | Encounter Summary ---
Author Organization [employer] Address [address] [facility] [address] [place] [address] Care Team Providers Care Research And Development Director Name Role Phone TerryJeri Primary Care Provider [phone] Encounter Details Date Type Department Care Team (Late st Contact Info) Description 12/19/2022 Orders Only [facility] CHC MED & PEDS [address] [place] [address] Jeri Rush LPN Social History Tobacco Use [...] Description 08/18/2025 9:00 AM EDT Office Visit [facility] ADULT DENTAL [address] [place] [address] Case Reilly, DDS [address] [place] [address] 08/25/2025 11:00 AM EDT Office Visit [facility] MEDICINE [address] [place] [address] 12/18/2025 8:00 AM EST Office Visit [facility] ADULT DENTAL [address] [place] [address] Mario AlbertoAdela grove [address] [place] [address] documented as of this encounter Visit Diagnoses Not on filedocumented in this encounter Care Teams Research And Development Director Relationship Specialty Start Date End Date Jeri Stewart DO [address] [place] [address] PCP - General Family Medicine 10/29/18 documented as of this encounter
--- OUTSIDE RECORDS SUMMARY | 2025-07-06 14:10 | XMS_ITS | Encounter Summary ---
Author Organization [employer] Address [address] [facility] [address] [place] [address] Care Team Providers Care Wafer Substrate Tester Name Role Phone Jeri Stewart DO Primary Care Provider + [phone] Reason for Visit * Reason Onset Date Comments Med Refill 02/16/2023 Encounter Details Date Type Department Care Team (Late Contact Info) Description 02/16/2023 Telephone [facility] MEDICINE [address] [place] [address] Jeri Stewart DO [address] [place] [address] Med Refill Social History Tobacco Use Types [...] (Percocet) 5-325 MG tablet [id number] [address] [facility] documented in this encounter Plan of Treatment Upcoming Encounters Date Type Department Care Team (Late Contact Info) Description 08/18/2025 9:00 AM EDT Office Visit [facility] ADULT DENTAL [address] [place] [address] TommieCase DDS [address] [place] [address] 08/25/2025 11:00 AM EDT Office Visit [facility] MEDICINE [address] [place] [address] 12/18/2025 8:00 AM EST Office Visit [facility] ADULT DENTAL [address] [place] [address] Mario Alberto, Adela [address] [place] [address] documented as of this encounter Visit Diagnoses Not on filedocumented in this encounter Care Teams Wafer Substrate Tester Relationship Specialty Start Date End Date Jeri Stewart DO [address] [place] [address] PCP - General Family Medicine 10/29/18 documented as of this encounter
[2025-07-06 14:22] LABS: Appearance Urine Cloudy; Glucose Urine UA Negative (Negative); PH 6.0 (5.0-9.0); Specific Gravity - Urine 1.020 (1.005-1.025); UMIC TRIGGER UA YES
== END 2025-07-06 11:28 | disposition home or self-care (01) ==
LOC: HO.HHCL 11:27
PROVIDERS: PCP Family Medicine; Referring Provider Internal Medicine Hypertension Specialist; Visit Provider Family Medicine
DX: I12.9 Hypertensive chronic kidney disease with stage 1 through stage 4 chronic kidney disease, or unspecified chronic kidney disease (principal); N18.9 Chronic kidney disease, unspecified
CPT/HCPCS: 81001

== ENCOUNTER 2025-07-15 13:10 | Outpatient (AMB) | payer MEDICAID, SELFPAY ==
[2025-07-15 13:22] VITALS: BP 110/74; PULSE 74; O2SAT 98
--- NOTE | 2025-07-15 13:22 | HO.NEPHOV_ITS ---
Vital Signs 07/15/25 13:22 Height 5 ft 6 in BP 110/74 Blood Pressure Location Lt radial Position Sitting Pulse 74 Pulse Source Pulse Oximeter Pulse Oximetry (%) 98 Oxygen Delivery Method Room Air Intake Visit Reasons: 6 month f/u-LVM Telegraph Operator Required: Yes Telegraph Operator Name: Chris [id number] Accompanied by: Self / Same As Patient Allergies No Known Allergies (No Known Allergies*) Allergy (Verified 07/15/25 13:24) Medication List - Last Reconciled 07/15/25 by Stephan Combs MD alcohol swabs (Alcohol Prep Pads) pad topical aspirin 81 mg PO DAILY baclofen 10 mg PO DAILY blood sugar diagnostic (FreeStyle Lite Strips) As directed cetirizine (Zyrtec) 10 mg PO DAILY PRN cholecalciferol (vitamin D3) 50 mcg PO DAILY dextrose-vitamin D3 4-400 gram-unit tabs PO dulaglutide (Trulicity) 3 mg subcut QWEEK fluticasone propionate 50 mcg/actuation (Flonase Allergy Relief) 1 spray intranasal DAILY gabapentin 300 mg PO DAILY PRN hydrochlorothiazide 25 mg PO DAILY hydroxyzine pamoate (Vistaril) 50 mg PO BEDTIME lancets (FreeStyle Lancets) As directed lidocaine 5% 1 patch topical DAILY lisinopril 30 mg PO DAILY metformin 850 mg PO DAILY multivitamin with iron 1 tab PO DAILY naloxone 4 mg/actuation (Narcan) 4 mg intranasal Q2M PRN omega-3 fatty acids (Fish Oil Concentrate) 1,000 mg PO DAILY oxycodone-acetaminophen 2.5-325 mg (Percocet) 1 tab PO Q6H PRN oxycodone-acetaminophen 5-325 mg 1 tab PO Q6H PRN pravastatin 80 mg PO BEDTIME propranolol ER (Inderal LA) 120 mg PO DAILY quetiapine 50 mg PO QPM quetiapine (Seroquel) 150 mg PO BEDTIME sertraline (Zoloft) 100 mg PO DAILY sumatriptan succinate (Imitrex) 25 mg PO Q2-4H PRN HPI Comments Details: Micheline is a pleasant 59-year-old woman with a history of hypertension obesity and diabetes mellitus referred for evaluation of CKD. Serum creatinine was 1.5. No new issues Overall blood pressure has been well controlled. Blood sugar has been under control as well. 07/15/25 The patient is a 60-year-old female presenting for follow-up regarding obesity, chronic kidney disease, diabetes mellitus, and hypertension. The patient adheres to her medication regimen with no changes reported. Blood sugar level was 121 mg/dL this morning. The patient monitors blood pressure at home and reports weight reduction to 118 pounds. Blood pressure is satisfactory, and kidney function is stable at 44%. Advised to maintain hydration, walk daily, and continue lisinopril. Medications: - Lisinopril: for hypertension and kidney protection Social History: - Exercise: Patient is advised to walk daily. Diagnostic Results: - Kidney function: Stable at 44% [facility] Medical History (Updated 07/30/24 @ 15:09 by Stephan Combs MD) Diverticulosis Hypertension Diabetes mellitus Morbid obesity with BMI of 60.0-69.9, adult Morbid obesity with BMI of 50.0-59.9, adult History of adenomatous polyp of colon Surgical History History of colonoscopy (~2020) Family History Mother Diabetes Social History Alcohol intake: never Patient Tobacco Use Status: Never used Tobacco Physical Exam Vital Signs: Last Vital Signs Pulse 74 07/15/25 13:22 BP 110/74 07/15/25 13:22 Pulse Ox 98 07/15/25 13:22 Oxygen Delivery Method Room Air 07/15/25 13:22 Comfortable Neck supple no JVD. Lungs entry equal no rales. Heart S1-S2 heard no gallop or rub. Abdomen soft nontender. Neuro alert awake oriented. No asterixis. Extremities no edema. Results Reviewed Nephrology Results: Hgb, (12.0-16.0) 11.4 g/dl L 10/07/24 WBC, (4.8-10.8) 7.0 X10*3/uL 10/07/24 Plt Count, (160-400) 247 X10*3/uL Δ 10/07/24 Sodium, (135-145) 141 mmol/L 01/09/25 Potassium, (3.3-5.1) 4.2 mmol/L 01/09/25 Chloride, (96-108) 105 mmol/L 01/09/25 Carbon Dioxide, (22-29) 27 mmol/L 01/09/25 BUN, (9-16) 22 mg/dL H 01/09/25 Creatinine, (0.5-1.4) 1.25 mg/dL 01/09/25 Calcium, (8.4-10.2) 9.6 mg/dL 01/09/25 Urine Protein, (Neg-Trace) Trace mg/dL 07/06/25 Urine Creatinine 117.95 mg/dL 08/05/24 Assessment & Plan Assessment & Plan (1) Hypertension: Code(s): I10 - Essential (primary) hypertension Category: Medical (2) CKD (chronic kidney disease): Code(s): N18.9 - Chronic kidney disease, unspecified Category: Medical Plan 60-year-old woman with a history of longstanding hypertension diabetes mellitus and obesity with CKD. Serum creatinine was 1.5 mg/dL which has in fact improved to 1.3 mg/dL. She probably has underlying hypertensive diabetic kidney disease. Other possibilities including obstructive uropathy and underlying glomerular disease should be considered and we will rule them out. Goal is to slow the progression of renal disease Continue to avoid nephrotoxic agents including NSAIDs. Maintain blood pressure less than 130/80 Maintain A1c less than 7%. Agree with maximizing CHERYL inhibitors for renal protection. She will also benefit from SGLT2 inhibitors. Discussed importance of low-salt diet and weight loss. 24 hours urine showed a Cr Cl of 83 ml/mt ! BP is acceptable after lowering LISINOPRIL from 40 mg down to 30 mg QD and she is doing well. Needs weight loss Increase physical activity No changes made today Orders: Orders Basic Metabolic Panel 6 Months I10 - Essential (primary) hypertension, N18.9 - Chronic kidney disease, unspecified Total Protein Urine Random 6 Months I10 - Essential (primary) hypertension, N18.9 - Chronic kidney disease, unspecified UA and rflx microscopic 6 Months I10 - Essential (primary) hypertension, N18.9 - Chronic kidney disease, unspecified Creatinine Urine 6 Months I10 - Essential (primary) hypertension, N18.9 - Chronic kidney disease, unspecified Coding Level of Care Code Est Pt Level 4 (84577) Diagnoses Hypertension I10 CKD (chronic kidney disease) N18.9
--- OUTSIDE RECORDS SUMMARY | 2025-07-15 16:49 | XMS_ITS | Encounter Summary ---
Author Organization [employer] Address [address] [facility] [address] [place] [address] Care Team Providers Care Brake Coupler Dinkey Name Role Phone TerryJeri Primary Care Provider [phone] Encounter Details Date Type Department Care Team (Late st Contact Info) Description 03/07/2023 Orders Only [facility] CHC MED & PEDS [address] [place] [address] Jeri Rush LPN Social History Tobacco Use [...] Description 08/18/2025 9:00 AM EDT Office Visit [facility] ADULT DENTAL [address] [place] [address] Case Reilly, DDS [address] [place] [address] 08/25/2025 11:00 AM EDT Office Visit [facility] MEDICINE [address] [place] [address] 12/18/2025 8:00 AM EST Office Visit [facility] ADULT DENTAL [address] [place] [address] Mario AlbertoAdela grove [address] [place] [address] documented as of this encounter Visit Diagnoses Not on filedocumented in this encounter Care Teams Brake Coupler Dinkey Relationship Specialty Start Date End Date Jeri Stewart DO [address] [place] [address] PCP - General Family Medicine 10/29/18 documented as of this encounter
--- OUTSIDE RECORDS SUMMARY | 2025-07-15 16:49 | XMS_ITS | Encounter Summary ---
Author Organization [employer] Address [address] [facility] 7[address] [place] [address] Care Team Providers Care Heliotherapist Name Role Phone Jeri Stewart DO Primary Care Provider + [phone] Reason for Visit * Reason Onset Date Comments Med Refill 10/23/2023 Encounter Details Date Type Department Care Team ([facility] st Contact Info) Description 10/23/2023 Telephone [facility] MEDICINE [address] [place] [address] Jeri Stewart DO [address] [place] [address] Med Refill Social History Tobacco Use Types [...] 2:42 PM EST Medication was sent to [facility] #[id number] on 08/02/23 #90 with 3 refills. * Telephone Encounter - Emilia Sánchez - 10/23/2023 2:10 PM EST TC from pt requesting medication refill. Medications needing refill : hydroCHLOROthiazide (HYDRODiuril) 25 MG tablet To be sent to: [facility]/pharmacy #[id number] - [address] documented in this encounter Plan of Treatment Upcoming Encounters Date Type Department Care Team (Late st Contact Info) Description 08/18/2025 9:00 AM EDT Office Visit [facility] ADULT DENTAL [address] [place] [address] Case Reilly DDS [address] [place] [address] 08/25/2025 11:00 AM EDT Office Visit [facility] MEDICINE [address] [place] [address] 12/18/2025 8:00 AM EST Office Visit [facility] ADULT DENTAL [address] [place] [address] Adela Llanes [address] [place] [address] documented as of this encounter Visit Diagnoses Not on filedocumented in this encounter Additional Health Concerns Assessment Noted Time PHQ-9 Depression Total Score: 14 04/10/ 023 10:19 AM EDT documented as of this encounter Care Teams Heliotherapist Relationship Specialty Start Date End Date Jeri Stewart DO [address] [place] [address] PCP - General Family Medicine 10/29/18 documented as of this encounter
--- OUTSIDE RECORDS SUMMARY | 2025-07-15 16:49 | XMS_ITS | Encounter Summary ---
Author Organization [employer] Address [address] [place] [address] Care Team Providers Care Furniture Dipper Name Role Phone Jeri Stewart DO Primary Care Provider + [phone] Encounter Details Date Type Department Care Team (Late st Contact Info) Description 02/07/2024 Orders Only [facility] MEDICINE [address] [place] [address] Provider, MD Albino Social History Tobacco Use [...] Description 08/18/2025 9:00 AM EDT Office Visit [facility] ADULT DENTAL [address] [place] [address] Case Reilly DDS [address] [place] [address] 08/25/2025 11:00 AM EDT Office Visit [facility] MEDICINE [address] [place] [address] 12/18/2025 8:00 AM EST Office Visit [facility] ADULT DENTAL [address] [place] [address] Mario Alberto, Adela [address] [place] [address] documented as of this encounter Procedures Procedure [...] documented as of this encounter Care Teams Furniture Dipper Relationship Specialty Start Date End Date Jeri Stewart DO [address] [place] [address] PCP - General Family Medicine 10/29/18 documented as of this encounter
--- OUTSIDE RECORDS SUMMARY | 2025-07-15 16:49 | XMS_ITS | Clinical Summary ---
Author Organization [employer] Address [address] [facility] [address] [place] [address] Care Team Providers Care Bat Person Name Role Phone Jeri Stewart DO Primary Care Provider + [phone] Allergies No known active allergies Medications * [...] polyneuropathy, without long-term current use of insulin ([facility]) USE TO CHECK BLOOD SUGAR TWICE A DAY 100 strip 11 024 Active aspirin (Aspirin Low Dose) 81 MG [...] 28 days. 112 tablet 025 2024 Active lidocaine (Lidoderm) 5 % patch Apply 1-2 patches topically if needed each day for mild pain. Remove & discard patch within 12 hours or as directed by MD. 60 patch 3 024 2024 oxyCODONE-aceta minophen (Percocet) 5-325 MG tabletIndicatio ns:Chronic [...] 12/16/2024 Periodontal disease 12/16/2024 Dental plaque 12/16/2024 shelter current use of opiate analgesic 2023 Overview (11/27/2024): Dx: DDD, lumbar; chronic knee pain Tx: Percocet 5/325mg q 6 hours Last NEWS ASSISTANT agreement: 11/25/24 Tier II (NEWS ASSISTANT visit Q3 months) Assessment & Plan (06/23/2025 [...] count not performed, as last visit with NEWS ASSISTANT 07/01/2024 and all was normal Assessment & Plan (07/08/2024 2:40 PM EDT): -Good engagement and participation with Group Medical Visit model, today was first visit. -Encouraged multifactorial approach to pain control including pharm and non- pharm modalities -UTOX and pill count not performed, as last visit with NEWS ASSISTANT 07/01/2024 and all was normal Essential hypertension 08/11/2015 Hyperlipidemia 08/11/2015 Chronic migraine 08/11/2015 BMI 50.0-59.9, adult 08/11/2015 Major depression, recurrent, chronic 08/11/2015 Chronic shoulder pain 08/11/2015 Type 2 diabetes mellitus 08/11/2015 Encounters * This document contains information received from the source organization and may not represent a complete record from that organization. Date Type Department Care Team Description 07/03/2025 Refill [facility] [address] [place] [address] Jeri Stewart DO Chronic bilateral low back pain, unspecified whether sciatica present 06/23/2025 11:00 AM EDT Office Visit [facility] [address] [place] [address] Olena Trujillo FNP Degeneration of intervertebral disc of lumbar region with discogenic back pain and lower extremity pain (Primary Dx); shelter current use of opiate analgesic 06/23/2025 Travel 06/16/2025 8:00 AM EDT Office Visit [facility] [address] [place] [address] Mario AlbertoAdela Dental plaque (Primary Dx); Acute gingival inflammation; Periodontal disease; Gingival bleeding 06/02/2025 Refill [facility] [address] [place] [address] Jeri Stewart DO Chronic bilateral low back pain, unspecified whether sciatica present 05/27/2025 9:30 AM EDT Office Visit [facility] [address] [place] [address] Octavia Betancourt, OD Presbyopia (Primary Dx) 04/30/2025 Refill [facility] [address] [place] [address] Jeri Stewart DO Chronic bilateral low back pain, unspecified whether sciatica present 04/29/2025 9:30 AM EDT Office Visit [facility] [address] [place] [address] Serafin, Octavia, OD Diabetes type 2, no ocular involvement ([facility]/H[facility]) (Primary Dx); Early cataracts, bilateral; Presbyopia 04/29/2025 Travel 04/21/2025 11:00 AM EDT Office Visit [facility] [address] [place] [address] Olena Trujillo FNP Degeneration of intervertebral disc of lumbar region with discogenic back pain and lower extremity pain (Primary Dx); shelter current use of opiate analgesic 04/21/2025 Telephone [facility] [address] [place] [address] Nora Kurtz RN BPI Scoring 04/21/2025 Travel from Last 3 Months Immunizations Immunization Administration [...] Description 08/18/2025 9:00 AM EDT Office Visit [facility] [address] [place] [address] Case Reilly DDS [address] [place] [address] 08/25/2025 11:00 AM EDT Office Visit [facility] [address] [place], [place] [phone] 12/18/2025 8:00 AM EST Office Visit [facility] [address] [place] [address] Gonzalo Llanesaris [address] [place] [address] Health Maintenance Due Date Last Done Comments CT Colonography 1965 FIT DNA/Cologuard 1965 FIT 1965 FOBT 1965 Sigmoidoscopy 1965 Disability Screening 1965 Diabetes: Foot Exam 1975 Zoster Vaccines (1 of 2) 2015 Colonoscopy 01/19/2021 01/20/2016 Colorectal Cancer Screening 01/19/2021 Diabetes: Urine Protein Screening 03/31/2025 03/31/2024, 05/09/2023, 12/22/2021, Additional history exists Lipid Panel 03/31/2025 03/31/2024, 04/28, 10/21/2020 Depression Screening 05/23/2025 05/23/2024, 05/23/20 SDOH Screening 05/23/2025 05/23/2024 Dental Oral Exam 06/16/2025 12/16/2024, , 07/18/2023, Additional history exists RSV Patients and Patients Aged 60 years or older (1 - Risk 60-74 years 1-dose series) 2025 Influenza Vaccine (#1) 2025 , 09/12/2023, 09/14/2022, Additional history exists Diabetes: Hemoglobin A1C 07/19/2025 025, 07/09/2024, 03/31/2024, Additional history exists Dental X-Ray: Bitewings 12/17/2025 12/16/19, 07/18/2023, 08/23/2020, Additional history exists Dental Prophylaxis 12/18/2025 06/16/2025, 0 12/16/2024, 03/13/2024, Additional history exists Alcohol/Substance Use Screening 01/16/2026 01/16/2025 Mammogram 05/14/2026 05/14/2025, 04/28, 04/26/2023, Additional history exists Tobacco Screening 06/16/2026 06/16/2025 Dental X-Ray: Full Mouth 07/19/2026 023, 06/09/2019, 02/02/2014 Eye Exam 04/29/2027 04/29/2025, 0711/2024, 04/29/2025, Additional history exists Cervical Cancer Screening [...] Procedure Name Priority Date/Time Associated Diagnosis Comments URINALYSIS, COMPLETE Routine 07/06/2025 11:41 AM EDT Paresthesia and pain of right extremity POCT ESTHER-14 URINE DRUG SCREEN Routine 06/23/2025 11:25 AM EDT Degeneration of intervertebral disc of lumbar region with discogenic back pain and lower extremity pain intermediate designer current use of opiate analgesic PROPHYLAXIS - [...] DRUG SCREEN Routine 04/21/2025 1:36 PM EDT intermediate designer current use of opiate analgesic POCT GLYCATED HEMOGLOBIN, TOTAL Routine 01/16/2025 9:19 AM EDT Type 2 diabetes mellitus with diabetic polyneuropathy, without long-term current use of insulin ([facility]) BITEWINGS - 4 RADIOGRAPHIC IMAGES Routine 12/16/2024 [...] polyneuropathy, without long-term current use of insulin ([facility]CC) Essential hypertension Other hyperlipidemia Major depression, recurrent, [...] Relevant to Health Maintenance Results * (ABNORMAL) Urinalysis Complete (07/06/2025 11:41 AM EDT) Color Urine Yellow [facility] Appearance Urine Cloudy [facility] PH 6.0 5.0 - 9.0 [facility] Glucose Urine UA Negative Negative mg/dL [facility] Urine Blood Negative Negative [facility] Specific [place] - Urine 1.020 1.005 - 1.025 [facility] Urine Protein Trace Neg-Trace mg/dL [facility] Urine Ketones Negative Negative mg/dL [facility] Nitrite Urine Negative Negative [facility] Leukocyte Esterase Urine Moderate (2+)(A) Negative [facility] RBC Urine 0-2 0 - 2 /HPF [facility] Urine WBC 0-5 0 - 5 /HPF [facility] Urine Squamous Epithelial Cell 6-10 0 - 2 /HPF [facility] Urine Bacteria 1+ None Seen [facility] Hyaline Casts, Urine 0-2 0 - 2 /LPF [facility] 07/06/2025 11:4 1 AM EDT 07/06/2025 2:07 PM EDT us Generic External Data Provider LAB URINE ORDERAB LES Final Result [facility] [address] [facility] [place] [address] [phone] * (ABNORMAL) POCT ESTHER-14 Urine Drug Screen [...] - 06/23/2025 11:25 AM EDT .UTOX cup Lot#[id number] Exp. 08/04/26 Internal Pass Control Olena Trujillo ACCOUNTS RECEIVABLE MANAGER POINT OF CARE TEST ENTER/EDIT ORDERABLES Final Result * BI Mammogram Screening Tomosynthesis Bilateral (05/14/2025 9:45 AM EDT) Anatomical Region Laterality Modality Breast Bilateral Mammography 05/14/2025 9:45 AM EDT Narrative 05/25/2025 10:42 AM EDT [facility] [address] [place] [address] Mammography Report Signed Patient: Judi Lobato MR#: [id number] : 1965 Acct:[id number] Age/Sex: 59 / F ADM Date: 05/14/25 Loc: HO.MAMMO Attending Dr: Jeri Stewart DO Ordering Physician: Jeri Stewart DO Results: 1N egative Date of Service: 05/14/25 Follow Up: 1 Year From Orig ina Mammogram Procedure(s): MM tomosynthesis screening BI Accession Number(s): [id number] cc: Jeri Stewart DO EXAMINATION: MM SCREENING [...] 05/25/25 1039 DD/ 0945 TD/TT: 05/14/25 1004 Packaging Sales: Procedure Note Donotuseinterpreter, Image - 05/25/2025 [place] [facility] [address] [place], [place] [address] Mammography Report Signed Patient: Judi Lobato#: [id number] : 1965Acct:[id number] Age/Sex: 59 / FADM Date: 05/14/25 Loc: HO.MAMMO Attending Dr: Jeri Stewart DO Ordering Physician: Jeri Stewartults: 1N egative Date of Service: 05/14/25Follow Up: 1 Year From [facility] Mammogram Procedure(s): MM tomosynthesis screening BI Accession Number(s): [id number] cc: Jeri Stewart DO EXAMINATION: MM SCREENING [...] 05/25/25 1039 DD/ 0945 TD/TT: 05/14/25 1004 Packaging Sales: Jeri Stewart DO IMG BI PROCEDURES Final Resu lt * POCT HGB A1C (01/16/2025 9:19 AM EDT) Hemoglobin A1C 5.9 4.0 - 6.0 % QC Media Lot # [id number] Lot# Expiration Date Blood 01/16/2025 9:19 AM EDT Jeri Stewart DO POINT OF CARE TEST ENTER/DIANA T ORDERABLES Final Result * ThinPrep Imaging Pap and HPV mRNA E6/E7 with Reflex to HPV 16,18/45 (05/23/2024 10:07 AM EDT) HPV 16 RNA [facility] HPV 18/45 RNA [facility] HPV nRNA E6/E7 Not Detected Not Detected [facility] Comment:Methodology: Transcr iption-Mediated AmplificationThis assay detects E6/E7 viral messenger RNA (mRNA) from 14high-risk HPV types (16,18,31,33,35,39,45,51,52,56,58,59,66,68).Cervical sources are required for HPV testing.If a vaginal source from a patient who has had atotal hysterectomy with removal of cervix wassubmitted, please contact the testing laboratoryfor alternative testing options.For additional information, please refer [email or web address]/[email or web address](This link if provided for information/educational purposes only.)THIS TEST WAS PERFORMED AT:[employer] [address] [phone] NEVAREZ MD SOURCE: SEE NOTE [facility] Comment:Cervix Report Status: [facility] Clinical Information: SEE NOTE [facility] Comment:None given LMP: SEE NOTE [facility] Comment:NONE GIVEN Prev. PAP: SEE NOTE [facility] Comment:NONE GIVEN Prev. BX: SEE NOTE [facility] Comment:NONE GIVEN Statement Of Adequacy: SEE NOTE [facility] Comment:Satisfactory for niki luation.Endocervical/transformation zone componentpresent. General Categorization: [facility] Interpretation/Result: SEE NOTE [facility] Comment:Cytology Results: Ne gative for intraepitheliallesion or malignancy. Cytology Comment SEE NOTE [facility] Comment:This Pap test has be en evaluated with computerassisted technology. Club Car Attendant: SEE NOTE [facility] Comment:MPG, CT(ASCP)CT scre ening location: [place] [address] Review Club Car Attendant: [facility] Pathologist [facility] PAP Infection [facility] See Note SEE NOTE [facility] Comment:EXPLANATORY NOTE:The Pap is a screening test for cervical cancer. It isnot a diagnostic test and is subject to false negativeand false positive results. It is most reliable when asatisfactory sample, regularly obtained, is submittedwith relevant clinical findings and history, and whenthe Pap result is evaluated along with historic andcurrent clinical information. 05/23/2024 10:0 7 AM EDT 05/23/2024 4:03 PM EDT Narrative [facility] - 05/27/2024 3:10 PM EDT SEE SCANNED RESULTS IN EMRRCERVIX us Jeri Stewart DO LAB PATHOLOGY ORDERABLES Fin al Result [facility] [address] [place] [phone] [phone] * Lipid Panel, Standard (03/31/2024 9:45 AM EDT) Triglycerides 82 <150 mg/dL [facility] Comment:Desirable Triglyceri de: less than 150 mg/dLBorderline High Triglyceride 150-199 mg/dLHigh Triglyceride: 200-499 mg/dLVery High Triglyceride: greater than or equal to 5OO mg/dL Cholesterol 125 <200 mg/dL [facility] Comment:Desirable Cholestero l: less than 200 mg/dLBorderline High Cholesterol: 200-239 mg/dLHigh Cholesterol: greater than 239 mg/dL LDL Cholesterol Calculated 58 <100 mg/dL [facility] Comment:Desirable LDL: less than 100 mg/dLNear Optimal/Above Optimal LDL: 110- 129 mg/dLBorderline High LDL: 130-159 mg/dLHigh LDL: 160-189 mg/dLVery High LDL: greater than or equal to 190 mg/dL HDL Cholesterol 51 >40 mg/dL [facility] Comment:Desirable HDL: great er than 40 mg/dL Note: This HDL assay may give artificially low results in patients with liver disease. Blood Venous blood specimen / Unknown 03/31/2024 9:45 AM EDT 03/31/2024 11:16 AM EDT Jeri Terry DO LAB BLOOD ORDERABLES Final R esult Performing Organization Address [facility] Co de Phone Number [facility] [address] [place] [phone] * Albumin, Random Urine W/Creatinine (03/31/2024 9:15 AM EDT) Creatinine, Urine 210.45 mg/dL [facility] Microalbumin Urine 11.0 mg/L [facility] Microalbum Creatinine Ratio Ur 5.2 <30 ug/mg cr [facility] Comment:Albumin/Creatinine R atio Reference Ranges: Normal: < 30 ug/mg creatinine Microalbuminuria: 30 - 300 ug/mg creatinineClinical Albuminuria: > 300 ug/mg creatinine Urine (Urine, Random) 03/31/2024 9:15 AM EDT 03/31/2024 11:07 AM EDT Jeri Stewart DO LAB URINE ORDERABLES Final R esult Performing Organization Address [facility] Co de Phone Number [facility] [address] [place] [phone] * Hepatitis C Antibody Reflex (05/09/2023 11:44 AM EDT) Hepatitis C Antibody Nonreactive Nonreactive [facility] Comment:Antibodies to HCV no t detected; does not exclude early acuteHCV infection. 05/09/2023 11:4 4 AM EDT 05/09/2023 1:19 PM EDT [facility] External Provider LAB BLO OD ORDERABLES Final Result Performing Organization Address [facility] Co de Phone Number [facility] [address] [place] [phone] * HIV Ab/Ag (DEVORAH ZULUAGA) (05/09/2023 11:44 AM EDT) HIV AB/AG Nonreactive Nonreactive [facility] Comment:HIV-1 p24 Ag and/or HIV-1/HIV-2 Ab not detected.A test result that is nonreactive does not exclude thepossibility of exposure to or infection with HIV-1 and/orHIV-2. Nonreactive results in this assay for individualswith prior exposure to HIV-1 and/or HIV-2 may be due toantigen and antibody levels that are below the limit ofdetection of this assay.The [employer] HIV Ag/Ab Combo assay result andsupplemental assay results should be interpreted inconjunction with the patient's clinical presentation,history and other laboratory results. If the results areinconsistent with clinical evidence, additional testing issuggested to confirm the result. 05/09/2023 11:4 4 AM EDT 05/09/2023 1:19 PM EDT [facility] External Provider LAB BLO OD ORDERABLES Final Result [facility] [address] [place] [address] [phone] * Hm Colonoscopy (01/20/2016 8:37 AM EDT) Historical Provider MD HEALTH MAINTENANCE Final Result from Last 3 Months or Most Recently Relevant to Health Maintenance Insurance [facility] C[place] AD[place] Care Teams Bat Person Relationship Specialty Start Date End Date Jeri Stewart DO [address] [place] [phone] PCP - General Family Medicine 10/29/18
--- OUTSIDE RECORDS SUMMARY | 2025-07-15 16:49 | XMS_ITS | Encounter Summary ---
Author Organization [employer] Address [address] [facility] [address] [place] [address] Care Team Providers Care Retort Forker Name Role Phone Jeri Stewart DO Primary Care Provider + [phone] Encounter Details Date Type Department Care Team (Latest Contact Info) Description 06/09/2019 Abstract [facility] CONVERSIONS Dental, Provider, DDS Social History Tobacco [...] Description 08/18/2025 9:00 AM EDT Office Visit [facility]ULT [facility]ENT[facility] [address] [place] [address] Case Reilly DDS [address] [place] [address] 08/25/2025 11:00 AM EDT Office Visit [facility] MEDICINE [address] [place] [address] 12/18/2025 8:00 AM EST Office Visit [facility] ADULT DENTAL [address] [place] [address] Gonzalo Llanesaris [address] [place] [address] documented as of this encounter Visit Diagnoses Not on filedocumented in this encounter Care Teams Retort Forker Relationship Specialty Start Date End Date Jeri Stewart DO [address] [place] [address] PCP - General Family Medicine 10/29/18 documented as of this encounter
--- OUTSIDE RECORDS SUMMARY | 2025-07-15 16:49 | XMS_ITS | Encounter Summary ---
Author Organization [employer] Address [address] [facility] [address]t [place] [address] Care Team Providers Care Manager Audio Name Role Phone Jeri Stewart DO Primary Care Provider + [phone] Encounter Details Date Type Department Care Team (Late st Contact Info) Description 09/07/2023 Abstract [facility] ADULT D[facility] [address] [place] [address] Nelda Portillo DDS [address] [place] [address] Social History Tobacco Use Types Packs/Day Years [...] Description 08/18/2025 9:00 AM EDT Office Visit [facility] ADULT DENTAL [address] [place] [address] Case Reilly DDS [address] [place] [address] 08/25/2025 11:00 AM EDT Office Visit [facility] MEDICINE [address] [place] [address] 12/18/2025 8:00 AM EST Office Visit [facility] ADULT DENTAL [address] [place] [address] Mario Alberto, Adela [address] [place] [address] documented as of this encounter Visit Diagnoses Not on filedocumented in this encounter Additional Health Concerns Assessment Noted Time PHQ-9 Depression Total Score: 14 023 10:19 AM EDT documented as of this encounter Care Teams Manager Audio Relationship Specialty Start Date End Date Jeri Stewart DO [address] [place] [address] PCP - General Family Medicine 10/29/18 documented as of this encounter
--- OUTSIDE RECORDS SUMMARY | 2025-07-15 16:49 | XMS_ITS | Encounter Summary ---
Author Organization [employer] Address [address] [facility] [address] [place] [address] Care Team Providers Care Monument Carver Name Role Phone TerryJeri Primary Care Provider [phone] Encounter Details Date Type Department Care Team (Late st Contact Info) Description 12/19/2022 Orders Only [facility] [address] [place] [address] Jeri Rush LPN Social History Tobacco Use [...] Description 08/18/2025 9:00 AM EDT Office Visit [facility] ADULT DENT[facility] [address] [place] [address] Case Reilly, DDS [address] [place] [address] 08/25/2025 11:00 AM EDT Office Visit [facility] [address] [place] [address] 12/18/2025 8:00 AM EST Office Visit [facility] ADULT [facility] [address] [place] [address] Mario AlbertoAdela grove [address] [place] [address] documented as of this encounter Visit Diagnoses Not on filedocumented in this encounter Care Teams Monument Carver Relationship Specialty Start Date End Date Jeri Stewart DO [address] [place] [address] PCP - General Family Medicine 10/29/18 documented as of this encounter
--- OUTSIDE RECORDS SUMMARY | 2025-07-15 16:49 | XMS_ITS | Encounter Summary ---
Author Organization [employer] Address [address] [facility] 7[address] [place] [address] Care Team Providers Care Floor Layer Name Role Phone Jeri Stewart DO Primary Care Provider + [phone] Reason for Visit * Reason Onset Date Comments same day cancellation 01/16/2025 Encounter Details Date Type Department Care Team ([facility] st Contact Info) Description 01/16/2025 Telephone [facility] ADULT D[facility] [address] [place] [address] Case Reilly DDS [address] [place] [address] same day cancellation Social History Tobacco Use [...] Office Visit [facility] ADULT DENT[facility] [address] [place] [address] Case Reilly DDS [address] [place] [address] 08/25/2025 11:00 AM EDT Office Visit [facility] [address] [place] [address] 12/18/2025 8:00 AM EST Office Visit [facility] ADULT DENT[facility] [address] [place] [address] Adela Llanes [address] [place] [address] documented as of this encounter Visit Diagnoses Not on filedocumented in this encounter Additional Health Concerns Assessment Noted Time PHQ-9 Depression Total Score: 2 05/23/20 24 9:34 AM EDT documented as of this encounter Care Teams Floor Layer Relationship Specialty Start Date End Date Jeri Stewart DO [address] [place] [address] PCP - General Family Medicine 10/29/18 documented as of this encounter
--- OUTSIDE RECORDS SUMMARY | 2025-07-15 16:49 | XMS_ITS | Encounter Summary ---
Author Organization [employer] Address [address] [facility] 7[address] [place] [address] Care Team Providers Care Rail Transportation Tabeler Name Role Phone Jeri Stewart DO Primary Care Provider + [phone] Encounter Details Date Type Department Care Team (Late st Contact Info) Description 07/08/2024 Telephone [facility] ADULT DENTAL [address] [place] [address] Case Reilly DDS [address] [place] [address] Social History Tobacco Use Types Packs/Day Years [...] Description 08/18/2025 9:00 AM EDT Office Visit [facility] ADULT DENTAL [address] [place] [address] Case Reilly DDS [address] [place] [address] 08/25/2025 11:00 AM EDT Office Visit [facility] MEDICINE [address] [place] [address] 12/18/2025 8:00 AM EST Office Visit [facility] ADULT DENTAL [address] [place] [address] Adela Llanes [address] [place] [address] documented as of this encounter Visit Diagnoses Not on filedocumented in this encounter Additional Health Concerns Assessment Noted Time PHQ-9 Depression Total Score: 2 05/23/20 24 9:34 AM EDT documented as of this encounter Care Teams Rail Transportation Tabeler Relationship Specialty Start Date End Date Jeri Stewart DO [address] [place] [phone] PCP - General Family Medicine 10/29/18 documented as of this encounter
--- OUTSIDE RECORDS SUMMARY | 2025-07-15 16:49 | XMS_ITS | Encounter Summary ---
Author Organization [employer] Address [address] [place] [address] Care Team Providers Care Director Of Cloud Services Name Role Phone Jeri Stewart DO Primary Care Provider + [phone] Reason for Visit * Reason Onset Date Comments Med Refill 02/16/2023 Encounter Details Date Type Department Care Team (Late Contact Info) Description 02/16/2023 Telephone [facility] MEDICINE [address] [place] [address] Jeri Stewart DO [address] [place] [address] Med Refill Social History Tobacco Use Types [...] (Percocet) 5-325 MG tablet Please sent [id number] [address] [facility] documented in this encounter Plan of Treatment Upcoming Encounters Date Type Department Care Team (Late Contact Info) Description 08/18/2025 9:00 AM EDT Office Visit [facility] ADULT DENTAL [address] [place] [address] TommieCase DDS [address] [place] [address] 08/25/2025 11:00 AM EDT Office Visit [facility] MEDICINE [address] [place] [address] 12/18/2025 8:00 AM EST Office Visit [facility] ADULT DENTAL [address] [place] [address] Mario Alberto, Adela [address] [place] [address] documented as of this encounter Visit Diagnoses Not on filedocumented in this encounter Care Teams Director Of Cloud Services Relationship Specialty Start Date End Date Jeri Stewart DO [address] [place] [address] PCP - General Family Medicine 10/29/18 documented as of this encounter
== END 2025-07-15 13:35 | disposition home or self-care (01) ==
LOC: HO.HKAM 13:10
PROVIDERS: PCP Family Medicine; Visit Provider Internal Medicine Hypertension Specialist
DX: I12.9 Hypertensive chronic kidney disease with stage 1 through stage 4 chronic kidney disease, or unspecified chronic kidney disease (principal); N18.9 Chronic kidney disease, unspecified
CPT/HCPCS: 99214

== ENCOUNTER → 2025-07-15 13:10 | Outpatient (BNVA) | payer MEDICAID, SELFPAY | PROVIDERS: PCP Family Medicine; Visit Provider Internal Medicine Hypertension Specialist | DX: E11.22 Type 2 diabetes mellitus with diabetic chronic kidney disease (principal); I12.9 Hypertensive chronic kidney disease with stage 1 through stage 4 chronic kidney disease, or unspecified chronic kidney disease; N18.9 Chronic kidney disease, unspecified | CPT/HCPCS: 99212 ==